=== PATIENT | male | born 1975 | race Caucasian/White ===

== ENCOUNTER → 2020-04-07 08:01 | Outpatient (BNVA) | payer OTHER, SELFPAY | PROVIDERS: PCP Internal Medicine; Visit Provider Anesthesiology | DX: M79.18 Myalgia, other site (principal); Z79.899 Other long term (current) drug therapy | CPT/HCPCS: 20552; 99212; J3300 ==

== ENCOUNTER 2020-05-20 09:59 | Outpatient (REF) | payer OTHER, SELFPAY | END 2020-05-20 10:00 | disposition home or self-care (01) | LOC: HO.LAB 09:59 | PROVIDERS: Visit Provider Internal Medicine | DX: Z20.828 Contact with and (suspected) exposure to other viral communicable diseases (principal) | CPT/HCPCS: 36415; C9803; U0003 ==

== ENCOUNTER → 2020-07-12 16:22 | Outpatient (BNVA) | payer OTHER, SELFPAY | PROVIDERS: PCP Internal Medicine; Visit Provider Anesthesiology | DX: M79.18 Myalgia, other site (principal) | CPT/HCPCS: 20552; 99212; J3300 ==

== ENCOUNTER → 2020-11-01 14:50 | Outpatient (BNVA) | payer OTHER, SELFPAY | PROVIDERS: PCP Internal Medicine; Visit Provider Anesthesiology | DX: M47.816 Spondylosis without myelopathy or radiculopathy, lumbar region (principal); M79.18 Myalgia, other site; Z79.899 Other long term (current) drug therapy | CPT/HCPCS: 20552; 99212; J3300 ==

== ENCOUNTER 2021-04-13 07:55 | Outpatient (REF) | payer OTHER, SELFPAY ==
[2021-04-13 08:12] LABS: MANUAL DIFF FLAG NO
[2021-04-13 08:15] LABS: Basophils Percent Auto 0.8 % (0-2); Eosinophils Absolute Auto 0.1 X10*3/uL (0.0-0.4); Hematocrit 47.7 % (42.0-52.0); Hemoglobin 16.7 g/dl (14.0-18.0); Imm Gran Abs Auto 0.01 X10*3/uL (0.00-0.03); Imm Gran Pct Auto 0.2 % (0.0-0.4); Lymphocytes Absolute Auto 1.4 X10*3/uL (1.2-4.9); Mean Corpuscular Hemoglobin 30.1 pg (27.0-33.0); Mean Corpuscular Volume 86.1 fL (80.0-98.0); Mean Platelet Volume 9.4 fL (9.4-12.4); Monocytes Absolute Auto 0.4 X10*3/uL (0.1-1.2); Monocytes Percent Auto 8.6 % (2-11); Neutrophils Absolute Auto 3.1 x10*3/uL (2.0-8.3); Neutrophils Percent Auto 60.4 % (45-73); Platelet Count 228 X10*3/uL (160-400); Red Blood Count 5.54 X10*6/uL (4.60-5.80); Red Cell Distribution Width 11.8 % (11.0-16.0); White Blood Count 5.1 X10*3/uL (4.8-10.8)
[2021-04-13 08:49] LABS: Alanine Aminotransferase 19 U/L (0-40); Albumin Level 4.3 g/dL (3.5-5.0); Alkaline Phosphatase 93 U/L (39-117); Anion Gap 9 (12-20); Aspartate Amino Transferase 21 U/L (5-37); Bilirubin Total 0.5 mg/dL (0.0-1.0); Blood Urea Nitrogen 16 mg/dL (9-16); Calcium 9.3 mg/dL (8.4-10.2); Carbon Dioxide 29 mmol/L (22-29); Chloride 106 mmol/L (96-108); Cholesterol 191 mg/dL; Estimated Glomerular Filt Rate > 60; Glucose Fasting 104 mg/dL (60-99); HDL Cholesterol 36 mg/dL; Potassium 3.9 mmol/L (3.3-5.1); Sodium 140 mmol/L (135-145); Total Protein 7.6 g/dL (6.5-8.0); Triglycerides 421 mg/dL
== END 2021-04-13 07:56 | disposition home or self-care (01) ==
LOC: HO.LAB 07:55
PROVIDERS: PCP Internal Medicine; Visit Provider Internal Medicine
DX: E66.3 Overweight (principal); E78.5 Hyperlipidemia, unspecified; D64.9 Anemia, unspecified
CPT/HCPCS: 36415; 80053; 80061; 85025

== ENCOUNTER → 2021-07-13 13:53 | Outpatient (BNVA) | payer OTHER, SELFPAY | PROVIDERS: PCP Internal Medicine; Visit Provider Anesthesiology | DX: M79.18 Myalgia, other site (principal) | CPT/HCPCS: 99212 ==

== ENCOUNTER 2021-09-15 07:00 | Outpatient (REF) | payer OTHER, SELFPAY ==
[2021-09-15 07:49] LABS: Alanine Aminotransferase 19 U/L (0-40); Albumin Level 4.2 g/dL (3.5-5.0); Alkaline Phosphatase 101 U/L (39-117); Anion Gap 13 (12-20); Aspartate Amino Transferase 20 U/L (5-37); Bilirubin Total 0.5 mg/dL (0.0-1.0); Blood Urea Nitrogen 13 mg/dL (9-16); Calcium 9.6 mg/dL (8.4-10.2); Carbon Dioxide 25 mmol/L (22-29); Chloride 107 mmol/L (96-108); Cholesterol 198 mg/dL; Estimated Glomerular Filt Rate 60; Glucose Fasting 94 mg/dL (60-99); HDL Cholesterol 38 mg/dL; Potassium 3.9 mmol/L (3.3-5.1); Sodium 141 mmol/L (135-145); Total Protein 7.5 g/dL (6.5-8.0); Triglycerides 467 mg/dL
== END 2021-09-15 07:01 | disposition home or self-care (01) ==
LOC: HO.LAB 07:00
PROVIDERS: PCP Internal Medicine; Visit Provider Internal Medicine
DX: E78.5 Hyperlipidemia, unspecified (principal); E78.1 Pure hyperglyceridemia
CPT/HCPCS: 36415; 80053; 80061

== ENCOUNTER → 2022-01-09 16:18 | Outpatient (BNVA) | payer OTHER, SELFPAY | PROVIDERS: PCP Internal Medicine; Visit Provider Anesthesiology | DX: M79.18 Myalgia, other site (principal) | CPT/HCPCS: 99212 ==

== ENCOUNTER 2022-02-01 07:43 | Outpatient (REF) | payer OTHER, SELFPAY ==
[2022-02-01 08:29] LABS: Alanine Aminotransferase 24 U/L (0-40); Albumin Level 4.3 g/dL (3.5-5.0); Alkaline Phosphatase 79 U/L (39-117); Anion Gap 14 (12-20); Aspartate Amino Transferase 22 U/L (5-37); Bilirubin Total 0.6 mg/dL (0.0-1.0); Blood Urea Nitrogen 18 mg/dL (9-16); Calcium 9.7 mg/dL (8.4-10.2); Carbon Dioxide 27 mmol/L (22-29); Chloride 106 mmol/L (96-108); Cholesterol 178 mg/dL; Estimated Glomerular Filt Rate > 60; Glucose Fasting 97 mg/dL (60-99); HDL Cholesterol 49 mg/dL; LDL Cholesterol Calculated 105 mg/dl; Potassium 3.9 mmol/L (3.3-5.1); Sodium 143 mmol/L (135-145); Total Protein 7.4 g/dL (6.5-8.0); Triglycerides 120 mg/dL
== END 2022-02-01 07:44 | disposition home or self-care (01) ==
LOC: HO.LAB 07:43
PROVIDERS: PCP Internal Medicine; Visit Provider Internal Medicine
DX: E78.1 Pure hyperglyceridemia (principal); E78.5 Hyperlipidemia, unspecified
CPT/HCPCS: 36415; 80053; 80061

== ENCOUNTER 2022-05-10 08:54 | Outpatient (REF) | payer OTHER, SELFPAY ==
[2022-05-10 10:01] LABS: PSA,Total (Free>4and<10) 0.74 ng/mL (0.00-4.00)
== END 2022-05-10 08:55 | disposition home or self-care (01) ==
LOC: HO.LAB 08:54
PROVIDERS: PCP Internal Medicine; Visit Provider Internal Medicine
DX: Z12.5 Encounter for screening for malignant neoplasm of prostate (principal)
CPT/HCPCS: 36415; 84153

== ENCOUNTER → 2022-06-26 15:49 | Outpatient (BNVA) | payer OTHER, SELFPAY | PROVIDERS: PCP Internal Medicine; Visit Provider Anesthesiology | DX: M79.18 Myalgia, other site (principal) | CPT/HCPCS: 99212 ==

== ENCOUNTER 2022-07-12 07:51 | Outpatient (REF) | payer OTHER, SELFPAY | END 2022-07-12 07:52 | disposition home or self-care (01) | LOC: HO.SH 07:51 | PROVIDERS: Visit Provider Internal Medicine | DX: H90.3 Sensorineural hearing loss, bilateral (principal) | CPT/HCPCS: 92557; 92567 ==

== ENCOUNTER 2022-08-19 13:40 | Emergency (ER) | payer OTHER, SELFPAY ==
--- NOTE | ~2022-08-19 | XR_ITS ---
EXAMINATION: XR RIBS, LEFT CLINICAL INFORMATION: Injury pain COMPARISON: No prior exam available. TECHNIQUE: Chest frontal, 5 oblique rib views. FINDINGS: RIBS: Skeletal structures are normal. LUNGS AND CHRISTIAN: Both lungs are clear. PLEURA: Normal. Costophrenic angles are sharp, no pneumothorax. HEART: The heart is normal in size. MEDIASTINUM: The mediastinum is within normal limits.. XR/XR ribs LT min 3V w CXR1V IMPRESSION: 1. No radiographic evidence of rib fracture. 2. No radiographic evidence of acute cardiopulmonary disease.
[2022-08-19 13:55] VITALS: BP 126/78; PULSE 76; RESP 18; TEMP 37.1; O2SAT 97; BMI 24.4
--- NOTE | 2022-08-19 13:59 | ED_ITS ---
HPI - General Adult General Chief complaint: General Medical <ADI Shea Last Filed: 08/19/22 13:59> Stated complaint: rib pain - minor inj <ADI Shea Last Filed: 08/19/22 13:59> Time Seen by Provider: 08/19/22 14:56 <ADI Shea Last Filed: 08/19/22 13:59> Source: patient and RN notes reviewed <ADI Orozco Last Filed: 08/19/22 18:34> Mode of arrival: ambulatory <ADI Orozco Last Filed: 08/19/22 18:34> Limitations: no limitations <ADI Orozco Last Filed: 08/19/22 18:34> History of Present Illness HPI narrative: 47-year-old male with a history of GERD and hypertriglyceridemia, who presents to the emergency department today with complaints left-sided rib pain x7 days. Patient reports that he accidentally hit his left ribs on a car door. Patient reports that he heard a crack and immediately felt pain in his left side. patient reports that since this incident he has had constant left-sided rib pain. He reports that his pain worsens with palpation there was deep inspirations. He reports that he also developed shortness of breath 3 days ago. he denies any fevers or chills. denies any sore throat, ear pain, palpitations, or chest pain. He reports that he was taking dual action advil which provided him with some relief. no other complaints or concerns at this time. <ADI Orozco Last Filed: 08/19/22 18:34> MD complaint: Rib pain <ADI Orozco Last Filed: 08/19/22 18:34> Onset (ago): week(s) <ADI Orozco Last Filed: 08/19/22 18:34> Radiation: non-radiation <ADI Orozco Last Filed: 08/19/22 18:34> Severity: moderate <ADI Orozco Last Filed: 08/19/22 18:34> Quality: stabbing <ADI Orozco Last Filed: 08/19/22 18:34> Pain Consistency: constant <ADI Orozco Last Filed: 08/19/22 18:34> Relieving factors: medication <ADI Orozco - Last Filed: 08/19/22 18:34> Exacerbating factors: movement <ADI Orozco - Last Filed: 08/19/22 18:34> Associated symptoms: denies other symptoms <ADI Orozco - Last Filed: 08/19/22 18:34> Treatments prior to arrival: none <ADI Orozco - Last Filed: 08/19/22 18:34> Related Data Home medications: Previous Rx's Medication Instructions Recorded acetaminophen 500 mg tablet 1,000 mg PO Q6H PRN pain #30 tabs 06/29/21 omeprazole 40 mg capsule,delayed 40 mg PO DAILY 90 days #90 caps 08/30/21 release baclofen 10 mg tablet 10 mg PO TID 30 days #90 tabs 02/08/22 lidocaine HCl 2 % mucosal jelly 1 appl topical TID PRN pain #30 mL 03/27/22 pregabalin 100 mg capsule 100 mg PO BID 30 days #60 caps 05/05/22 fenofibrate nanocrystallized 145 145 mg PO DAILY 90 days #90 tabs 06/19/22 mg tablet tramadol 50 mg tablet 50 mg PO BID PRN pain 30 days #60 08/17/22 tabs ibuprofen 600 mg tablet 600 mg PO Q6H PRN pain #45 tabs 08/19/22 <ADI Shea - Last Filed: 08/19/22 13:59> Allergies/adverse reactions: Allergies Allergy/AdvReac Type Severity Reaction Status Date / Time No Known Allergies Allergy Verified 08/19/22 13:54 [No Known Allergies*] <ADI Shea - Last Filed: 08/19/22 13:59> Review of Systems Review of Systems: Yes all other systems are reviewed and are negative <ADI Orozco - Last Filed: 08/19/22 18:34> [facility] Past Medical History Medical History: Medical History (Updated 08/19/22 @ 16:18 by ADI Orozco) Changes in vision COVID-19 GERD (gastroesophageal reflux disease) Hypertriglyceridemia Myofascial pain syndrome Myofascial pain syndrome of thoracic spine Overweight (BMI 25.0-29.9) Physical exam Rash Spondylosis of lumbar spine <ADI Shea - Last Filed: 08/19/22 13:59> Surgical History: Surgical History (Updated 05/10/22 @ 08:38 by Vanita Garrison MD) History of appendectomy <ADI Shea - Last Filed: 08/19/22 13:59> Family History Family History: Family History Mother Arthritis Hypertension <ADI Shea - Last Filed: 08/19/22 13:59> Social History Social History: Social History Housing: Apartment Alcohol intake: never Patient Tobacco Use Status: Former Tobacco user Tobacco use type: Cigarette e-Cigarette/Vaping Use: Never Used Second Hand Smoke Exposure: No Advance Directives: No Advance Directives Information Provided: No service: No Current occupational status: employed Current occupational exposures/hazards: No Cognitive needs: No Hearing needs: No Vision needs: No <ADI Shea - Last Filed: 08/19/22 13:59> Physical Exam ED Vital Signs: Vital Signs - 24 hr 08/19/22 13:55 Temperature 98.8 F Pulse Rate 76 Respiratory Rate 18 Blood Pressure 126/78 Pulse Oximetry 97 Oxygen Delivery Method Room Air BMI result Body Mass Index 24.4 <ADI Shea - Last Filed: 08/19/22 13:59> Vital Signs - 24 hr 08/19/22 13:55 Temperature 98.8 F Pulse Rate 76 Respiratory Rate 18 Blood Pressure 126/78 Pulse Oximetry 97 Oxygen Delivery Method Room Air BMI result Body Mass Index 24.4 <ADI Orozco - Last Filed: 08/19/22 18:34> Appearance: Alert. Oriented X3. No acute distress. Eyes: Pupils equal, round and reactive to light. EOMI ENT: Pharynx normal. Neck: Normal inspection. Neck supple. CVS: Normal heart rate and rhythm. Pulses normal. Respiratory: No respiratory distress. Breath sounds normal. Lungs clear to auscultation bilaterally. No wheezes, rales, or rhonchi. Abdomen: Soft and nontender. +BS x4 Skin: Skin warm and dry. Normal skin color. Normal skin turgor. No rashes. Extremities: No lower extremity edema. MSK: diffuse tenderness to palpation overlying the left anterior ribs, approximately ribs 5 through 8, with no point tenderness. No ecchymosis, no abrasions, or open wounds. Neuro: Oriented X 3. No motor deficit. No sensory deficit. CN II-XII intact. <ADI Orozco Last Filed: 08/19/22 18:34> Course Course Course Narrative: RME performed by Candy Lema PA-C. Patient is a 47 year old assigned male at presenting to the emergency department with left sided rib pain. Patient states that he struck his left side against the side of his car door and he has had pain ever since. Imaging ordered. Patient placed back in the waiting room pending room availability and results. <ADI Shea Last Filed: 08/19/22 13:59> Medical Decision Making Medical Decision Making MDM Narrative: 47-year-old male presenting today for evaluation of left-sided rib pain for 1 week. vital signs stable. patient has tenderness palpation along the left anterior ribs. Rib x-rays reveal no fracture. Discharged on a prescription for ibuprofen. Educated the importance of taking deep breaths to prevent pneumonia. Educated to return with any new or worsening symptoms. Patient understands and agrees with plan. <ADI Orozco Last Filed: 08/19/22 18:34> Differential Diagnosis Differential Diagnoses: The differential diagnosis associated with the presentation includes <ADI Orozco Last Filed: 08/19/22 18:34> rib fractures, costochondritis, pneumothorax, pnuemonia <ADI Orozco Last Filed: 08/19/22 18:34> Radiology Impression Discussion of test interpretation with radiology: I have reviewed the radiologist's reading. <ADI Orozco Last Filed: 08/19/22 18:34> Radiologist Impression: EXAMINATION: XR RIBS, LEFT CLINICAL INFORMATION:? Injury pain COMPARISON: No prior exam available. TECHNIQUE: Chest frontal, 5 oblique rib views. FINDINGS: RIBS: Skeletal structures are normal. LUNGS AND CHRISTIAN: Both lungs are clear. PLEURA: Normal. Costophrenic angles are sharp, no pneumothorax. HEART: The heart is normal in size. MEDIASTINUM: The mediastinum is within normal limits.. XR/XR ribs LT min 3V w CXR1V IMPRESSION: 1. No radiographic evidence of rib fracture. ? 2. No radiographic evidence of acute cardiopulmonary disease. Dictated By: Carolyn Bucio MD <ADI Orozco - Last Filed: 08/19/22 18:34> Discharge Plan Discharge Clinical Impression: Contusion of rib on left side <ADI Shea - Last Filed: 08/19/22 13:59> Patient Disposition: Home, Self-Care <ADI Shea Last Filed: 08/19/22 13:59> Instructions: Rib Contusion (ED) <ADI Shea - Last Filed: 08/19/22 13:59> Additional Instructions: Your rib x-rays did not show any fractures today. You likely bruised your ribs. Take prescribed ibuprofen as directed. Take with food. Continue to take deep breaths as this will prevent you from developing pneumonia. You may apply warm or cold compresses to the area which will help with your symptoms. Use which ever feels better. If any new or worsening symptoms occur please return for re-evaluation. Las radiograf?as de sonali costillas no mostraron ninguna fractura hoy. Probablemente te lastimaste las costillas. Rodessa el ibuprofeno recetado seg?n las indicaciones. Mary con la comida. Contin?e respirando profundamente ya que esto evitar? que desarrolle neumon?a. Puede aplicar compresas tibias o fr?as en el ?paulo que lo ayudar?n con sonali s?ntomas. Use lo que se sienta mejor. Si se presentan s?ntomas nuevos o que empeoran, regrese para ari reevaluaci?n. <ADI Shea - Last Filed: 08/19/22 13:59> Prescriptions: New ibuprofen 600 mg tablet 600 mg PO Q6H PRN (Reason: pain) Qty: 45 0RF No Action omeprazole 40 mg capsule,delayed release(DR/EC) 40 mg PO DAILY 90 Days Qty: 90 1RF baclofen 10 mg tablet 10 mg PO TID 30 Days Qty: 90 8RF pregabalin 100 mg capsule 100 mg PO BID 30 Days Qty: 60 5RF fenofibrate nanocrystallized 145 mg tablet 145 mg PO DAILY 90 Days Qty: 90 1RF tramadol 50 mg tablet 50 mg PO BID PRN (Reason: pain) 30 Days Qty: 60 0RF acetaminophen 500 mg tablet 1,000 mg PO Q6H PRN (Reason: pain) Qty: 30 0RF lidocaine HCl 2 % jelly 1 appl topical TID PRN (Reason: pain) Qty: 30 0RF <ADI Shea - Last Filed: 08/19/22 13:59> Interventions: ED Discharge Assessment Last Done: 08/19/22 16:43 <ADI Shea - Last Filed: 08/19/22 13:59> Discharge Date/Time: 08/19/22 16:43 <ADI Shea - Last Filed: 08/19/22 13:59> Print Language: Upper Sorbian <ADI Shea - Last Filed: 08/19/22 13:59>
== END 2022-08-19 16:43 | disposition home or self-care (01) ==
PROVIDERS: Emergency Provider Emergency Medicine; PCP Internal Medicine
DX: S20.212A Contusion of left front wall of thorax, initial encounter (principal); W22.09XA Striking against other stationary object, initial encounter; Y93.89 Activity, other specified; Y92.810 Car as the place of occurrence of the external cause; Y99.9 Unspecified external cause status
CPT/HCPCS: 71101; 99282; 99283

== ENCOUNTER 2022-11-15 10:34 | Outpatient (REF) | payer OTHER, SELFPAY | END 2022-11-15 10:35 | disposition home or self-care (01) | LOC: HO.LAB 10:34 | PROVIDERS: PCP Internal Medicine; Visit Provider Internal Medicine | DX: E78.5 Hyperlipidemia, unspecified (principal); E78.1 Pure hyperglyceridemia | CPT/HCPCS: 36415; 80053; 80061 ==

== ENCOUNTER 2023-05-16 07:26 | Outpatient (AMB) | payer OTHER, SELFPAY ==
[2023-05-16 07:42] VITALS: BP 114/70; BMI 25.4
--- NOTE | 2023-05-16 07:42 | MHC.PC.OV ---
Vital Signs 05/16/23 07:42 Height 6 ft Weight 187 lb BMI 25.4 BP 114/70 Blood Pressure Location Lt brachial Position Sitting Intake Visit Reasons: Annual Exam Intake Note: Patient here for an annual physical exam, c/o right arm pain x4 months Crime Scene Analyst Required: No Accompanied by: Self / Same As Patient Allergies No Known Allergies [No Known Allergies*] Allergy (Verified 05/16/23 07:50) Medication List - Last Reconciled 05/16/23 by Vanita Garrison MD acetaminophen 1,000 mg (2 x 500 mg) PO Q6H PRN baclofen 10 mg PO TID 30 days fenofibrate nanocrystallized 145 mg PO DAILY 90 days ibuprofen 600 mg PO Q6H PRN omeprazole 40 mg PO DAILY 90 days pregabalin 100 mg PO BID 30 days tramadol 50 mg PO BID PRN 30 days Tobacco use date assessed: 11/08/22 Dental Screening Dental Screen Date: 05/16/23 Did you have a dental visit in the last 12 months?: Yes Did you have a dental problem in the last 6 months where you did not have access to dental care?: No Was dental information given to patient?: Patient has dentist HPI HPI Comments History of Present Illness Details This is a 48-year-old male that comes for his physical exam. Has no family history of colon cancer and has never had a colonoscopy. Will prefer a Cologuard. No chest pain or shortness of breath. Complains of right elbow pain that started about 4 months ago with no previous trauma. No weakness or numbness associated with it. Also has left repeat pain that started yesterday after putting pressure on it while working on his car. [facility] Medical History Physical exam Changes in vision Hypertriglyceridemia Overweight (BMI 25.0-29.9) GERD (gastroesophageal reflux disease) Spondylosis of lumbar spine Rash COVID-19 Myofascial pain syndrome of thoracic spine Myofascial pain syndrome Surgical History History of appendectomy Family History (Updated 05/16/23 @ 07:54 by Vanita Garrison MD) Mother Arthritis Hypertension Father No problems noted. Social History Housing: Apartment Alcohol intake: never Patient Tobacco Use Status: Former Tobacco user Tobacco use type: Cigarette e-Cigarette/Vaping Use: Never Used Second Hand Smoke Exposure: No service: No Current occupational status: employed Current occupational exposures/hazards: No Cognitive needs: No Hearing needs: No Vision needs: No Questionnaire Thrive Questionnaire Date Thrive assessed: 11/08/22 JESSICA-7 AMB Questionnaire JESSICA-7 Date JESSICA - 7 assessed: 11/08/22 Source: Developed by Drs. Dejuan Amador, Leta Calderon, Dieter Sarah and colleagues, with an educational abhay from [employer]. Review of Systems Const All systems reviewed & are unremarkable except as noted in HPI and below Eyes Reports no additional complaints, Denies change in vision and Denies other visual disturbances Card Denies chest pain at rest, Denies chest pain with activity, Denies edema, Denies irregular heart rhythm, Denies claudication, Denies dyspnea, Denies dyspnea on exertion, Denies orthopnea, Denies paroxysmal nocturnal dyspnea and Denies slow heart rate Resp Denies cough, Denies dyspnea and Denies dyspnea on exertion GI Denies abdominal pain, Denies change in bowel habits, Denies excessive flatus, Denies nausea and Denies vomiting Denies urinary hesitancy, Denies urinary incontinence and Denies urinary urgency Musc Denies abnormal gait, Denies atrophy, Denies deformity, Reports arthralgias and Denies limited range of motion Skin/Breast Denies bleeding lesions, Denies changing lesions and Denies rash Neuro Denies abnormal gait and Denies lack of coordination Physical exam (Primary Care) Vital Signs: Last Vital Signs BP 114/70 05/16/23 07:42 BMI result Body Mass Index 25.4 Tobacco/Smoking Status: Tobacco use Status Tobacco use date assessed 11/08/22 05/16/23 07:47 Patient Tobacco Use Status Former Tobacco user 05/16/23 07:47 Tobacco use type Cigarette 05/16/23 07:47 e-Cigarette/Vaping Use Never Used 05/16/23 07:47 Thrive Assessment: Date of Thrive Assessment Date Thrive assessed 11/08/22 05/16/23 07:47 Const Orientation/consciousness: patient oriented x3 HENMT Head: Yes normal to inspection, Yes normocephalic and Yes atraumatic Ears: external ears normal Eyes General: appearance normal, both eyes and all related structures Eyelids: Yes eyelids normal Conjunctivae: conjunctivae normal Neck Neck: Yes normal visual inspection and Yes supple Resp Effort & Inspection: normal respiratory effort Auscultation: clear to auscultation bilaterally Cardio Jugular venous distension: no JVD Rate: regular rate Rhythm: regular rhythm Heart sounds: S1 normal heart sound present and S2 normal heart sound present GI Inspection: Yes normal to inspection Palpation (GI): Soft to palpation and nontender Auscultation: normal bowel sounds Skin General skin exam: no rashes or lesions noted Neuro General: patient oriented x3 and no focal motor deficits Extrem General: Yes full ROM Psych Appearance: grossly normal Assessment and Plan Assessment & Plan (1) Physical exam: Code(s): Z00.00 - Encounter for general adult medical examination without abnormal findings Plan: Repeat in a year. Orders: Orders XR elbow RT 2V Today M25.521 - Pain in right elbow Lipid Panel Today E78.5 - Hyperlipidemia, unspecified Comprehensive [facility]. Panel Fast Today Z00.00 - Encounter for general adult medical examination without abnormal findings OT Evaluation and Treatment Today M25.521 - Pain in right elbow XR ribs LT 2V Today R07.81 - Pleurodynia Referrals Cologuard Test Z12.11 - Encounter for screening for malignant neoplasm of colon, Z12.12 - Encounter for screening for malignant neoplasm of rectum Coding Level of Care Code Est Pt Prev Care 40-64y(34452) Diagnoses Physical exam Z00.00 Time Spent (min) 31
== END 2023-05-16 08:02 | disposition home or self-care (01) ==
PROVIDERS: Visit Provider Internal Medicine
DX: Z00.00 Encounter for general adult medical examination without abnormal findings (principal); Z87.891 Personal history of nicotine dependence
CPT/HCPCS: 99396

== ENCOUNTER 2023-05-16 08:16 | Outpatient (REF) | payer OTHER, SELFPAY | END 2023-05-16 08:17 | disposition home or self-care (01) | LOC: HO.XRAY 08:16 | PROVIDERS: PCP Internal Medicine; Visit Provider Internal Medicine | DX: R07.81 Pleurodynia (principal); M25.521 Pain in right elbow | CPT/HCPCS: 71101; 73070 ==

== ENCOUNTER 2023-05-23 09:51 | Outpatient (REF) | payer OTHER, SELFPAY ==
[2023-05-23 11:26] LABS: Alanine Aminotransferase 19 U/L (0-40); Albumin Level 4.5 g/dL (3.5-5.0); Alkaline Phosphatase 80 U/L (39-117); Anion Gap 14 (12-20); Aspartate Amino Transferase 21 U/L (5-37); Bilirubin Total 0.6 mg/dL (0.0-1.0); Blood Urea Nitrogen 21 mg/dL (9-16); Calcium 9.7 mg/dL (8.4-10.2); Carbon Dioxide 25 mmol/L (22-29); Chloride 107 mmol/L (96-108); Cholesterol 173 mg/dL (<200); Estimated Glomerular Filt Rate > 60; Glucose Fasting 93 mg/dL (60-99); HDL Cholesterol 49 mg/dL (>40); LDL Cholesterol Calculated 95 mg/dL (<100); Potassium 4.3 mmol/L (3.3-5.1); Sodium 142 mmol/L (135-145); Total Protein 7.9 g/dL (6.5-8.0); Triglycerides 148 mg/dL (<150)
== END 2023-05-23 09:52 | disposition home or self-care (01) ==
LOC: HO.LAB 09:51
PROVIDERS: PCP Internal Medicine; Visit Provider Internal Medicine
DX: Z00.00 Encounter for general adult medical examination without abnormal findings (principal); E78.5 Hyperlipidemia, unspecified
CPT/HCPCS: 36415; 80053; 80061

== ENCOUNTER 2023-06-07 15:03 | Outpatient (AMB) | payer OTHER, SELFPAY ==
--- NOTE | 2023-06-07 15:35 | A.OFFVIS_ITS ---
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 Patient reports that he has had right elbow pain ongoing for about6 months now. He believes that this pain was onset while he was carrying a heavy bucket of paint while in [place]. Pain is located on the lateral aspect of the elbow. 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 The patient was seen by his PCP on 05/16/2023 with a complaint of 4 months of right elbow pain with no trauma. While in the office today he reports having pain for 6 months. He believe the pain and discomfort began after he was carrying heavy buckets of paint while in [place]. He states the pain is on the lateral aspect of the right elbow. He states the brace has given him some relief. He denies numbness or tingling. He reports an injury to the right upper extremity when he was younger. [facility] Medical History Physical exam Changes in vision Hypertriglyceridemia Overweight (BMI 25.0-29.9) GERD (gastroesophageal reflux disease) Spondylosis of lumbar spine Rash COVID-19 Myofascial pain syndrome of thoracic spine Myofascial pain syndrome Surgical History History of appendectomy Family History (Updated 05/16/23 @ 07:54 by Vanita Garrison MD) Mother Arthritis Hypertension Father No problems noted. 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 No ecchymosis, erythema, or edema. No tenderness to palpation over the olecranon. No tenderness to the medial epicondyle. Slight tenderness to palpation lateral epicondyle. NVI. Assessment & Plan Assessment & Plan (1) Right tennis elbow: Code(s): M77.11 - Lateral epicondylitis, right elbow Plan Mr. Sin Russell is a 48-year-old male who presents in the office today, as a new patient, for an evaluation of right elbow pain. The patient was seen by his PCP on 05/16/2023 with a complaint of 4 months of right elbow pain with no trauma. While in the office today he reports having pain for 6 months. He believe the pain and discomfort began after he was carrying heavy buckets of paint while in [place]. He states the pain is on the lateral aspect of the right elbow. He states the brace has given him some relief. He denies numbness or tingling. He reports an injury to the right upper extremity when he was younger. The patient will be referred to occupational therapy to work on strengthening. I would also like for them to work on this area for inflammation, possibly with ultrasound and/or deep tissue massaging to see if that can decrease the pain and inflammation. After 6 weeks of occupational therapy should the patient not have relief I have asked for him to call the office and we can move forward with the cortisone injection. In the event the cost of occupational therapy is too high I did supply him with home exercises for the right elbow today and we can move forward with the cortisone injection if needed. I have also sent in a prescription for Naproxen 500 mg PO TID for 30 days to the pharmacy Follow up will be PRN, or sooner if needed. X-rays of the right elbow, obtained on 05/16/2023, revealed: 1.No displaced fracture. 2. Small olecranon spur. 3. Tiny punctate radiodensity in the soft tissues along the radial aspect of the elbow of indeterminate etiology. 4. Recommend follow-up imaging in 10-14 days if fracture is suspected. Orders: Orders OT Evaluation and Treatment Today M77.11 - Lateral epicondylitis, right elbow Medications: New naproxen 500 mg PO Q8H 90 tabs 0RF 30 days Patient Instructions: Scribed for Mitali Gomez PA-C by [place] medical record librarians teacher, on 06/04/2023 at 3:05 pm, EST. Coding Level of Care Code New Pt Level 4 (29038) Diagnoses Right tennis elbow M77.11
== END 2023-06-07 15:56 | disposition home or self-care (01) ==
PROVIDERS: PCP Internal Medicine; Visit Provider Physician Assistant
DX: M77.11 Lateral epicondylitis, right elbow (principal)
CPT/HCPCS: 99204

== ENCOUNTER → 2023-06-07 15:03 | Outpatient (BNVA) | payer OTHER, SELFPAY | PROVIDERS: PCP Internal Medicine; Visit Provider Physician Assistant | DX: M77.11 Lateral epicondylitis, right elbow (principal) | CPT/HCPCS: 99202 ==

== ENCOUNTER 2023-07-30 12:43 | Outpatient (AMB) | payer OTHER, SELFPAY ==
[2023-07-30 13:44] VITALS: BP 124/60; PULSE 83; O2SAT 96; BMI 25.8
--- NOTE | 2023-07-30 13:44 | MHC.OFFWIV ---
Intake Vital Signs 07/30/23 13:44 Height 6 ft Weight 190 lb BMI 25.8 BP 124/60 Blood Pressure Location Rt brachial Position Sitting Pulse 83 Pulse Source Pulse Oximeter Pulse Oximetry (%) 96 Oxygen Delivery Method Room Air Intake Visit Reasons: EP Acid Reflux, Diff clearing throat, Foul smell Intake Note: Pt is here c/o acid reflex. Pt states his cough has a foul odor and he doesn't know where it came from. Pt states he has been on omeprazole for two weeks and has not felt any better. Patient Tobacco Use Status: Former Tobacco user Allergies No Known Allergies [No Known Allergies*] Allergy (Verified 07/30/23 14:05) HPI HPI Comments History of Present Illness Details This is a 48-year-old male with past medical history of gastroesophageal reflux disease and hypertriglyceridemia presenting for evaluation of his GERD that persists despite taking omeprazole 40mg BID for the past 2 weeks. The patient reports that when he burps for the past 7 days he has a very foul odor to his breath. Patient states his symptoms of gastroesophageal reflux disease have been persistent for the past 6 weeks and he was previously taking omeprazole 20 mg but only as needed. Patient reports having a ?bacteria? in his stomach previously which was treated with antibiotic therapy. Patient denies having any dark or bloody stools, constipation, fevers, chills or chest pain. [facility] Medical History Physical exam Changes in vision Hypertriglyceridemia Overweight (BMI 25.0-29.9) GERD (gastroesophageal reflux disease) Spondylosis of lumbar spine Rash COVID-19 Myofascial pain syndrome of thoracic spine Myofascial pain syndrome Surgical History History of appendectomy Family History (Updated 05/16/23 @ 07:54 by Vanita Garrison MD) Mother Arthritis Hypertension Father No problems noted. 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 Current occupational exposures/hazards: No Cognitive needs: No Hearing needs: No Vision needs: No Review of Systems Const All systems reviewed & are unremarkable except as noted in HPI and below ENT Denies dysphagia Card Reports as per HPI Resp Reports as per HPI GI Reports abdominal pain, Reports belching, Denies melena, Denies hematochezia, Denies coffee ground emesis, Denies constipation, Denies dysphagia, Denies excessive flatus, Reports dyspepsia and Denies diarrhea Reports no additional complaints Neuro Reports no additional complaints Physical Exam Vital Signs: Last Vital Signs Pulse 83 07/30/23 13:44 BP 124/60 07/30/23 13:44 Pulse Ox 96 07/30/23 13:44 Oxygen Delivery Method Room Air 07/30/23 13:44 BMI result Body Mass Index 25.8 Const General: cooperative, healthy appearing, comfortable and no acute distress Nutritional Appearance: average body habitus Orientation/consciousness: oriented to person, oriented to place and oriented to time Limitations: no limitations Resp Effort & Inspection: normal respiratory effort, no audible wheezes, no cough and no respiratory distress Auscultation: clear to auscultation bilaterally Cardio Rate: regular rate Rhythm: regular rhythm GI Palpation (GI): Soft to palpation and Tenderness to palpation present (GI) in the epigastrum (with guarding; no rebound tenderness) and in the LUQ; not in the RUQ Auscultation: normal bowel sounds Rectal Exam - Male: Yes deferred Neuro General: oriented to person, oriented to place and oriented to time Psych Appearance: grossly normal Mental Status: mental status grossly normal Insight: Good insight present (Psych) Judgement: Good judgement present (Psych) Assessment & Plan Assessment & Plan (1) GERD (gastroesophageal reflux disease): Comment: Patient states he has experienced no improvement of his symptoms with omeprazole. Patient will be switched to an H2 dari BID and stool testing for H pylori will be pursued. Code(s): K21.9 - Gastro-esophageal reflux disease without esophagitis Qualifiers: Esophagitis presence: without esophagitis Qualified Code(s): K21.9 - Gastro-esophageal reflux disease without esophagitis Plan: Famotidine BID; stool testing for H.pylori will be submitted and the patient will follow-up with his PCP for the results. Orders: Orders H pylori Ag Stool 07/30/23 K21.9 - Gastro-esophageal reflux disease without esophagitis Medications: New famotidine 20 mg PO BID 28 tabs 0RF Coding Level of Care Code Est Pt Level 3 (50009) Diagnoses Gastroesophageal reflux disease without esophagitis K21.9 Esophagitis presence: without esophagitis Time Spent (min) 20
== END 2023-07-30 15:10 | disposition home or self-care (01) ==
PROVIDERS: PCP Internal Medicine; Visit Provider Physician Assistant
DX: K21.9 Gastro-esophageal reflux disease without esophagitis (principal)
CPT/HCPCS: 99213

== ENCOUNTER 2023-08-01 11:42 | Outpatient (REF) | payer OTHER, SELFPAY | END 2023-08-01 11:43 | disposition home or self-care (01) | LOC: HO.LNP 11:42 | PROVIDERS: Visit Provider Physician Assistant | DX: K21.9 Gastro-esophageal reflux disease without esophagitis (principal) | CPT/HCPCS: 87338 ==

== ENCOUNTER 2023-08-15 13:47 | Outpatient (AMB) | payer OTHER, SELFPAY ==
--- NOTE | 2023-08-15 13:47 | MHC.OFFVIS ---
Intake Vital Signs 08/15/23 14:03 Height 6 ft Weight 189 lb 6 oz BMI 25.7 BP 146/76 H Blood Pressure Location Lt brachial Position Sitting Respiration 16 Pulse 76 Pulse Source Pulse Oximeter Pulse Oximetry (%) 96 Oxygen Delivery Method Room Air Intake Visit Reasons: Medication follow up Intake Note: Patient comes in for medication follow up. Reports pain 11/20. Allergies No Known Allergies [No Known Allergies*] Allergy (Verified 08/15/23 14:03) HPI HPI Comments History of Present Illness Details Fred is a very pleasant Macedonian speaking male who is here after 1 year of absence. I started him on Lyrica and he is here to refill his prescription. I you requested him to explain if he has any side effects of the Lyrica. He denies peripheral edema. He denies depression. He admitted that it beginning of the therapy start he was feeling drowsy and sleepy but now those symptoms are gone. He enjoys good pain relief from this medication and he requests me to refill this medication for him. I will refill this medication with 6 refills. I will see him as needed. In the past to perform trigger point injections for him, in the past he reports that he has penis becomes red and irritated when I do trigger point injections.?I never heard about complication like this, however recommended him to go for urological consult and explained to urologist what happened. Unfortunately this patient did not go to urologist to receive the consultation about this complication. Therefore cannot consider administering to him today any injections with steroids. We agreed that he will go to his urologist and clear out for us past to perform injections for him. He reports good results of Lyrica he denies side effects. On the MRI which we obtained on his request there is no pathology from L1-L5. L5-S1 diffusely bulging disc no canal stenosis partial effacement of perineural fat with mass effect on both L5 foraminal nerve roots. The importance of this finding on MRI approach is probably minimal because his pain is nonradicular in nature and in any case does not present itself in L5 bilateral distribution. [facility] Medical History Physical exam Changes in vision Hypertriglyceridemia Overweight (BMI 25.0-29.9) GERD (gastroesophageal reflux disease) Spondylosis of lumbar spine Rash COVID-19 Myofascial pain syndrome of thoracic spine Myofascial pain syndrome Surgical History History of appendectomy Family History (Updated 05/16/23 @ 07:54 by Vanita Garrison MD) Mother Arthritis Hypertension Father No problems noted. 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 Current occupational exposures/hazards: No Cognitive needs: No Hearing needs: No Vision needs: No Review of Systems Const All systems reviewed & are unremarkable except as noted in HPI and below ENT Reports Normal hearing present Neuro Reports Normal hearing present, Denies confusion and Denies Sensory deficit (Neuro) Psych Denies confusion Physical Exam Vital Signs: Last Vital Signs Pulse 76 08/15/23 14:03 Resp 16 08/15/23 14:03 BP 146/76 H 08/15/23 14:03 Pulse Ox 96 08/15/23 14:03 Oxygen Delivery Method Room Air 08/15/23 14:03 BMI result Body Mass Index 25.7 Const General: No confusion Orientation/consciousness: No confusion Eyes Pupils: Equal, round and reactive pupils present EOM: EOMs intact bilaterally Chest Chest palpation & inspection: normal inspection of the chest Resp Effort & Inspection: normal respiratory effort, able to speak in complete sentences, normal respiratory pattern, no audible wheezes and no cough Cardio Jugular venous distension: no JVD Back/Spine/Pelvis Other: tenderness on palpation in paraspinal spinal region in thoracic spine. there are significant muscular bands probably in the projection of bilateral paraspinal or rather bilateral latissimus dorsi muscle. Loading test is negative. Range of motion in lumbar spine is preserved. Rahul test is negative bilaterally. Neuro General: No confusion Cranial nerves: Yes Equal, round and reactive pupils present and Yes Normal hearing present Sensory Exam: No Sensory deficit (Neuro) Psych Speech and movement: Normal speech and movement present Affect: normal affect Attitude: cooperative Assessment & Plan Assessment & Plan (1) Myofascial pain syndrome: Code(s): M79.18 - Myalgia, other site (2) Myofascial pain syndrome of thoracic spine: Code(s): M79.18 - Myalgia, other site Plan He denies side effects of Lyrica. He reports Lyrica allow him to be more active perform better activities of daily living do better with social interactions. I will refill his prescription today. In the past he was requesting to perform trigger point injections . I agreed to perform trigger point injections, however he was complaining on redness in the penis with previous injections. He was sent to urologist. Unfortunately he did not go for urological consult. He has his own urologist and need to discuss this complication with urologist. After that he may be attempted to perform trigger point injections once we know that there is nothing dangerous with the reaction to the steroids from his penile structures. Medications: Refilled pregabalin 100 mg PO BID 60 caps 5RF 30 days Coding Level of Care Code Est Pt Level 3 (91552) Diagnoses Myofascial pain syndrome M79.18 Myofascial pain syndrome of thoracic spine M79.18
[2023-08-15 14:03] VITALS: BP 146/76; PULSE 76; RESP 16; O2SAT 96; BMI 25.7
== END 2023-08-15 14:29 | disposition home or self-care (01) ==
PROVIDERS: PCP Internal Medicine; Visit Provider Anesthesiology
DX: M79.18 Myalgia, other site (principal)
CPT/HCPCS: 99213

== ENCOUNTER → 2023-08-15 13:47 | Outpatient (BNVA) | payer OTHER, SELFPAY | PROVIDERS: PCP Internal Medicine; Visit Provider Anesthesiology | DX: M79.18 Myalgia, other site (principal) | CPT/HCPCS: 99212 ==

== ENCOUNTER 2023-09-27 12:57 | Outpatient (AMB) | payer OTHER, SELFPAY ==
--- NOTE | 2023-09-27 13:00 | A.OFFVIS_ITS ---
Vital Signs 09/27/23 13:01 Height 6 ft Weight 189 lb 9.561 oz BMI 25.7 BP 135/57 L Blood Pressure Location Lt brachial Position Sitting Pulse 68 Intake Visit Reasons: Colonoscopy Screening Intake Note: Fred presents in the office as a new patient colonoscopy screening. CC: He states that he is having acid - acid reflux. No irregular bowel movements. [employer] Required: Yes [employer] Name: [id number] Ninet Allergies No Known Allergies [No Known Allergies*] Allergy (Verified 09/27/23 13:04) Medication List - Last Reconciled 09/27/23 by Aleah Rene PA-C acetaminophen 1,000 mg (2 x 500 mg) PO Q6H PRN escitalopram oxalate 10 mg PO DAILY famotidine 40 mg PO BEDTIME 90 days fenofibrate nanocrystallized 145 mg PO DAILY 90 days pregabalin 100 mg PO BID 30 days tramadol 50 mg PO BID PRN 30 days HPI Comments Details: 48-year-old male referred for screening colonoscopy presents with acid reflux- ongoing for years tried several ppi- currently pepcid 40 mg-hoarseness- break through He has frequent throat clearing - His bowels are normal Appetite is good No N/V/D abdominal pain, fever or chills PFSH Medical History Physical exam Changes in vision Hypertriglyceridemia Overweight (BMI 25.0-29.9) GERD (gastroesophageal reflux disease) Spondylosis of lumbar spine Rash COVID-19 Myofascial pain syndrome of thoracic spine Myofascial pain syndrome Surgical History History of appendectomy Family History (Updated 09/27/23 @ 13:06 by HEAVEN Heck) Mother Arthritis Hypertension Father No problems noted. 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 Current occupational exposures/hazards: No Cognitive needs: No Hearing needs: No Vision needs: No Review of Systems Const All systems reviewed & are unremarkable except as noted in HPI and below Card Denies chest pain and Denies dyspnea Resp Denies dyspnea GI Denies abdominal pain, Reports heartburn, Denies nausea and Denies vomiting Physical Exam Vital Signs: Last Vital Signs Pulse 68 09/27/23 13:01 BP 135/57 L 09/27/23 13:01 BMI result Body Mass Index 25.7 Const General: cooperative, healthy appearing, comfortable and no acute distress Orientation/consciousness: patient oriented x3 Limitations: language barrier Skin General skin exam: no rashes or lesions noted Neuro General: patient oriented x3 Extrem General: Yes full ROM Psych Appearance: grossly normal and well kempt Mental Status: mental status grossly normal Speech and movement: Normal speech and movement present and Clear speech present Affect: normal affect and Labile affect present Attitude: cooperative Thought process: Normal thought process present Thought content: Normal thought content present Insight: Good insight present (Psych) Judgement: Good judgement present (Psych) Results Reviewed Results Reviewed: HP- negative Assessment & Plan Assessment & Plan (1) GERD (gastroesophageal reflux disease): Comment: no improvement of his symptoms with omeprazole. Patient will be switched to an H2 dari BID and stool testing for H pylori -negative Code(s): K21.9 - Gastro-esophageal reflux disease without esophagitis Category: Medical Qualifiers: Esophagitis presence: without esophagitis Qualified Code(s): K21.9 - Gastro-esophageal reflux disease without esophagitis Plan: EGD- (2) Encounter for screening colonoscopy: Comment: many repetitions----slow to detail disc procedure, rare risks, prep Code(s): Z12.11 - Encounter for screening for malignant neoplasm of colon Category: Medical Plan: colonoscopy-index Plan EGD/ colon-needs interp MG prep Orders: Orders EGD/Roach Combo - GI Use Only Today K21.9 - Gastro-esophageal reflux disease without esophagitis, Z12.11 - Encounter for screening for malignant neoplasm of colon Medications: New bisacodyl (Dulcolax (bisacodyl)) Day before procedure @ 12 noon Take 4 tablets by mouth followed by large glass of water 20 mg (4 x 5 mg) PO ONCE PRN 4 tabs 0RF colonoscopy prep 1 day Z12.11 - Encounter for screening for malignant neoplasm of colon polyethylene glycol 3350 (Miralax) Take as directed by mouth the day before your procedure. 238 grams PO ONCE 238 grams 0RF laxative effect 1 day pantoprazole 40 mg PO DAILY 30 tabs 5RF 30 days Patient Instructions: EGD/colon MG prep Reflux precautions switch to pantoprazole 40 mg May take famotodine at HS if has breakthrough Call with concerns Coding Level of Care Code New Pt Level 4 (07855) Diagnoses Gastroesophageal reflux disease without esophagitis K21.9 Esophagitis presence: without esophagitis Encounter for screening colonoscopy Z12.11 Time Spent (min) 35 Comment [id number]
[2023-09-27 13:01] VITALS: BP 135/57; PULSE 68; BMI 25.7
== END 2023-09-27 14:13 | disposition home or self-care (01) ==
PROVIDERS: PCP Internal Medicine; Visit Provider Physician Assistant
DX: K21.9 Gastro-esophageal reflux disease without esophagitis (principal); Z12.11 Encounter for screening for malignant neoplasm of colon
CPT/HCPCS: 99204

== ENCOUNTER → 2023-09-27 12:57 | Outpatient (BNVA) | payer OTHER, SELFPAY | PROVIDERS: PCP Internal Medicine; Visit Provider Physician Assistant | DX: Z12.11 Encounter for screening for malignant neoplasm of colon (principal); K21.9 Gastro-esophageal reflux disease without esophagitis | CPT/HCPCS: 99202 ==

== ENCOUNTER 2023-11-21 09:58 | Outpatient (AMB) | payer OTHER, SELFPAY ==
--- NOTE | 2023-11-21 10:07 | MHC.PC.OV ---
Vital Signs 11/21/23 10:08 Height 6 ft Weight 187 lb 2 oz BMI 25.4 BP 100/74 Blood Pressure Location Lt brachial Position Sitting Pulse 94 Pulse Source Pulse Oximeter Pulse Oximetry (%) 96 Oxygen Delivery Method Room Air Intake Visit Reasons: chronic pain,gerd Floor Specialist Required: No Accompanied by: Self / Same As Patient Allergies No Known Allergies [No Known Allergies*] Allergy (Verified 11/21/23 10:26) Medication List - Last Reconciled 11/21/23 by Vanita Garrison MD acetaminophen 1,000 mg (2 x 500 mg) PO Q6H PRN bisacodyl (Dulcolax (bisacodyl)) 20 mg (4 x 5 mg) PO ONCE PRN 1 day escitalopram oxalate 10 mg PO DAILY famotidine 40 mg PO BEDTIME 90 days fenofibrate nanocrystallized 145 mg PO DAILY 90 days pantoprazole 40 mg PO DAILY 30 days polyethylene glycol 3350 (Miralax) 238 grams PO ONCE 1 day pregabalin 100 mg PO BID 30 days tramadol 50 mg PO BID PRN 30 days Tobacco use date assessed: 11/21/23 Dental Screening Dental Screen Date: 05/16/23 HPI HPI Comments History of Present Illness Details This is a 48-year-old male with GERD and lumbar spondylosis that comes today for follow-up on his conditions. GERD has been improving with pantoprazole daily. Lumbar spondylosis are well control with tramadol as needed and he is aware that can cause addiction and sedation. Denies any chest pain or shortness on breath. Doing well. [facility] Medical History Physical exam Changes in vision Hypertriglyceridemia Overweight (BMI 25.0-29.9) GERD (gastroesophageal reflux disease) Spondylosis of lumbar spine Rash COVID-19 Myofascial pain syndrome of thoracic spine Myofascial pain syndrome Surgical History History of appendectomy Family History Mother Arthritis Hypertension Father No problems noted. 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 1. Little interest or pleasure in doing things: not at all 2. Feeling down, depressed, or hopeless: not at all 3. Trouble falling or staying asleep, or sleeping too much: not at all 4. Feeling tired or having little energy: not at all 5. Poor appetite or overeating: not at all 6. Feeling bad about yourself - or that you are a failure or have let yourself or your family down: not at all 7. Trouble concentrating on things, such as reading the newspaper or watching television: not at all 8. Moving or speaking so slowly that other people could have noticed. Or the opposite - being so fidgety or restless that you have been moving around a lot more than usual: not at all 9. Thoughts that you would be better off or of hurting yourself in some way: not at all Total score: 0 Depression Screening Interpretation: Negative Depression Screening Done: Yes 77097 - PHQ-9 Billing: Yes Source: Developed by Drs. Dejuan Amador, Leta Calderon, Dieter Sarah and colleagues, with an educational abhay from [employer]. Thrive Questionnaire Date Thrive assessed: 11/21/23 I am a: Patient What is your living situation today?: I have a steady place to live Within the past 12 months, did the food you bought not last and you didn't have the money to get more?: Never true Within the past 12 months, did you worry whether your food would run out before you got money to buy more?: Never true Do you have trouble paying for medicines?: No Do you have trouble getting transportation to medical appointments?: No Do you have trouble paying your heating and electricity bill?: No Do you have trouble taking care of your child, family member or friend?: No Do you have trouble with day-to-day activities such as bathing, preparing meals, shopping, managing finances, etc.?: No Are you currently unemployed and looking for a job?: No Are you interested in more education?: No Please select the resources that you would like help with: None Currently or been in a relationship where the following occur: No concerns reported THRIVE Score: 0 AUDIT C Alcohol Use Questionnaire (AUDIT-C) 1. How often do you have a drink containing alcohol?: Never 3. How often do you have six or more drinks on one occasion?: Never Total Score: 0 JESSICA-7 AMB Questionnaire JESSICA-7 Date JESSICA - 7 assessed: 11/21/23 Feeling nervous, anxious, or on edge: 0 = Not at all Not being able to stop or control worryin = Not at all Worrying too much about different things: 0 = Not at all Trouble relaxin = Not at all Being so restless that it is hard to sit still: 0 = Not at all Becoming easily annoyed or irritable: 0 = Not at all Feeling afraid as if something awful might happen: 0 = Not at all Total JESSICA-7 score (0-4 normal; 5-9 mild; 10-14 moderate; 15-21 severe): 0 Source: Developed by Drs. Dejuan Amador, Leta Calderon, Dieter Sarah and colleagues, with an educational abhay from [employer]. JESSICA-7 Assessment Billing JESSICA-7 Assessment Tool: JESSICA-7 Assessment 07726 Review of Systems Const All systems reviewed & are unremarkable except as noted in HPI and below Card Denies chest pain at rest, Denies chest pain with activity, Denies edema, Denies irregular heart rhythm, Denies claudication, Denies dyspnea, Denies dyspnea on exertion, Denies orthopnea, Denies paroxysmal nocturnal dyspnea and Denies slow heart rate Resp Denies cough, Denies dyspnea and Denies dyspnea on exertion Physical exam (Primary Care) Vital Signs: Last Vital Signs Pulse 94 11/21/23 10:08 BP 100/74 11/21/23 10:08 Pulse Ox 96 11/21/23 10:08 Oxygen Delivery Method Room Air 11/21/23 10:08 BMI result Body Mass Index 25.4 Tobacco/Smoking Status: Tobacco use Status Tobacco use date assessed 11/21/23 11/21/23 10:12 Patient Tobacco Use Status Former Tobacco user 11/21/23 10:12 Tobacco use type Cigarette 11/21/23 10:12 e-Cigarette/Vaping Use Never Used 11/21/23 10:12 PHQ-9: PHQ-9 Score PHQ-9: Total score 0 11/21/23 10:29 Depression Screening Interpretation: Negative Thrive Assessment: Date of Thrive Assessment Date Thrive assessed 11/21/23 11/21/23 10:12 Currently or been in a relationship where the following occur: No concerns reported Resp Effort & Inspection: normal respiratory effort Auscultation: clear to auscultation bilaterally Cardio Jugular venous distension: no JVD Rate: regular rate Rhythm: regular rhythm Heart sounds: S1 normal heart sound present and S2 normal heart sound present Extrem General: Yes full ROM Assessment and Plan Assessment & Plan (1) GERD (gastroesophageal reflux disease): Comment: no improvement of his symptoms with omeprazole. Patient will be switched to an H2 dari BID and stool testing for H pylori -negative Code(s): K21.9 - Gastro-esophageal reflux disease without esophagitis Qualifiers: Esophagitis presence: without esophagitis Qualified Code(s): K21.9 - Gastro-esophageal reflux disease without esophagitis Plan: Continue pantoprazole and famotidine. (2) Spondylosis of lumbar spine: Code(s): M47.816 - Spondylosis without myelopathy or radiculopathy, lumbar region Plan: Continue tramadol as needed. Medications: Refilled tramadol 50 mg PO BID PRN 60 tabs 0RF pain 30 days Coding Level of Care Code Est Pt Level 3 (83400) Complex EM visit Add On G2211 Diagnoses Gastroesophageal reflux disease without esophagitis K21.9 Esophagitis presence: without esophagitis Spondylosis of lumbar spine M47.816 Additional Codes JESSICA-7 Assessment Billing - JESSICA-7 Assessment Tool: JESSICA-7 Assessment 14309 ([id number]) Time Spent (min) 19
[2023-11-21 10:08] VITALS: BP 100/74; PULSE 94; O2SAT 96; BMI 25.4
== END 2023-11-21 10:35 | disposition home or self-care (01) ==
PROVIDERS: PCP Internal Medicine; Visit Provider Internal Medicine
DX: K21.9 Gastro-esophageal reflux disease without esophagitis (principal); M47.816 Spondylosis without myelopathy or radiculopathy, lumbar region
CPT/HCPCS: 99213; G2211

== ENCOUNTER 2024-02-18 07:13 | Outpatient (AMB) | payer OTHER, SELFPAY ==
--- NOTE | 2024-02-18 07:22 | MHC.OFFVIS ---
Vital Signs 02/18/24 07:37 Height 6 ft Weight 187 lb BMI 25.4 BP 121/57 L Blood Pressure Location Lt brachial Position Sitting Pulse 81 Intake Visit Reasons: swallowing difficulty/Aleah former pt Intake Note: Patient follow up for follow up/ Aleah current patient. Patient cc: always clearing throat and then he get hiccup for the rest of the day. Aircraft Shipping Checker Required: Yes Aircraft Shipping Checker Name: Pamela [id number] Accompanied by: Self / Same As Patient Allergies No Known Allergies [No Known Allergies*] Allergy (Verified 11/21/23 10:26) Medication List - Last Reconciled 02/18/24 by Symone Chung MD acetaminophen 1,000 mg (2 x 500 mg) PO Q6H PRN bisacodyl (Dulcolax (bisacodyl)) 20 mg (4 x 5 mg) PO ONCE PRN 1 day escitalopram oxalate 10 mg PO DAILY famotidine 40 mg PO BEDTIME 90 days fenofibrate nanocrystallized 145 mg PO DAILY 90 days pantoprazole 40 mg PO DAILY 30 days polyethylene glycol 3350 (Miralax) 238 grams PO ONCE 1 day pregabalin 100 mg PO BID 30 days tramadol 50 mg PO BID PRN 30 days HPI HPI swallowing difficulty/Aleah former pt: Details: GI clinic visit for this 48 year old Palestinian-speaking male for FU of GERD and to schedule a screening colonoscopy TODAY'S VISIT: Telephone health companionPamela Patient follow up for follow up/ Aleah current patient. Patient cc: always clearing throat and then he get hiccup for the rest of the day. Heartburn for the past several months - medications help just a little Wakes up and notes a raspy throat - all day. Notes hiccups after he eats Patient denies symptoms of dysphagia, nausea, vomiting, change in appetite or weight. Denies recent change in bowel habits, constipation, diarrhea, black stools or rectal bleeding. Patient denies major cardiac or pulmonary problems, loud snoring or sleep apnea Denies problems with anesthesia in the past. Denies being on chronic anticoagulation, Admits to taking Advil 2 tab intermittently 1-2 times a week for back pain. Denies smoking or ETOH. Mom had heartburn. Patient denies known family history of colon polyps, colon cancer or other GI malignancies. Mat GM with pancreatic cancer around age 58 PAST EGD/COLONOSCOPY: LABS IN [facility] : Reviewed 07/18/23 stool Cologuard test was negative H pylori stool antigen was negative in 2019 IMAGING STUDIES: No recent GI imaging studies ENDOSCOPIC STUDIES: 2010 EGD was performed by Dr Rojo and showed hemorrhagis gastritis and duodenitis PAST GI HISTORY BY REVIEW OF MEDICAL RECORDS: Patient was seen by Mike Rene on 09/27/2023 48-year-old male referred for screening colonoscopy presents with acid reflux-ongoing for years tried several ppi- currently pepcid 40 mg-hoarseness- break through He has frequent throat clearing - His bowels are normal Appetite is good No N/V/D abdominal pain, fever or chills PLAN: EGD/colon MG prep Reflux precautions switch to pantoprazole 40 mg May take famotodine at HS if has breakthrough PFSH Medical History Physical exam Changes in vision Hypertriglyceridemia Overweight (BMI 25.0-29.9) GERD (gastroesophageal reflux disease) Spondylosis of lumbar spine Rash COVID-19 Myofascial pain syndrome of thoracic spine Myofascial pain syndrome Surgical History History of appendectomy Family History Mother Arthritis Hypertension Father No problems noted. 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 Current occupational exposures/hazards: No Cognitive needs: No Hearing needs: No Vision needs: No Review of Systems Const Reports fatigue, Denies fever(s), Denies headache(s) and Denies weight loss Eyes Denies eye discharge and Denies irritation ENT Reports Normal hearing present, Reports dysphagia, Denies dizziness and Denies headache(s) Card Denies chest pain, Denies leg edema and Denies dyspnea on exertion Resp Denies cough, Denies dyspnea on exertion and Denies wheezing GI Denies abdominal pain, Denies change in bowel habits, Reports dysphagia and Reports heartburn Denies dysuria and Reports urinary frequency Musc Denies back pain, Denies arthralgias and Reports other (arthritis) Skin/Breast Denies pruritus, Denies rash and Denies jaundice Neuro Reports Normal hearing present, Denies Abnormal speech present, Denies dizziness, Denies headache(s) and Denies seizure-like activity Psych Denies anxiety, Denies depression and Denies panic attacks Endo Denies cold intolerance, Reports fatigue, Denies flushing and Denies heat intolerance Wiley/Lymph Denies easy bleeding and Denies easy bruising Aller/Immun Denies wheezing Physical Exam Vital Signs: Last Vital Signs Pulse 81 02/18/24 07:37 BP 121/57 L 02/18/24 07:37 BMI result Body Mass Index 25.4 Const General: healthy appearing, no acute distress and anxious Nutritional Appearance: average body habitus Orientation/consciousness: patient oriented x3 Limitations: language barrier HEENT Head: Yes normal to inspection Ears: hearing grossly normal bilaterally Eyes Sclerae: sclerae normal Pupils: Equal, round and reactive pupils present Neck Neck: Yes normal visual inspection Chest Chest palpation & inspection: normal inspection of the chest Resp Effort & Inspection: normal respiratory effort Auscultation: clear to auscultation bilaterally Cardio Palpation: normal PMI Rate: regular rate Rhythm: regular rhythm Heart sounds: S1 normal heart sound present, S2 normal heart sound present and no murmurs GI Palpation (GI): Soft to palpation, nontender and No hepatosplenomegaly present Auscultation: normal bowel sounds Rectal Exam - Male: Yes deferred Skin General skin exam: no rashes or lesions noted Neuro General: patient oriented x3, gait normal and moves all extremities Cranial nerves: Yes Equal, round and reactive pupils present and Yes Normal hearing present Speech: No Abnormal speech present Psych Appearance: grossly normal Mental Status: mental status grossly normal Assessment & Plan Assessment & Plan (1) GERD (gastroesophageal reflux disease): Comment: no improvement of his symptoms with omeprazole. Patient will be switched to an H2 dari BID and stool testing for H pylori -negative Code(s): K21.9 - Gastro-esophageal reflux disease without esophagitis Category: Medical Qualifiers: Esophagitis presence: without esophagitis Qualified Code(s): K21.9 - Gastro-esophageal reflux disease without esophagitis Plan 48 year old Palestinian-speaking male with symptoms of heartburn for the past several months - medications help just a little Notes a raspy throat when he wakes up - suggestive of LPRD. Pt is scheduled for an EGD and colon with Dr Stokes on 05/01/24 Patient was advised to increase pantoprazole to 40 mg twice daily. Schedule further evaluation with a barium swallow. Proceed with EGD and colonoscopy as scheduled. Patient has a follow-up appointment with the Aleah Rene on 06/11/24 Orders: Orders FL barium swallow Today K21.9 - Gastro-esophageal reflux disease without esophagitis Medications: Changed From pantoprazole 40 mg PO DAILY 30 days 30 tabs 5RF K21.9 - Gastro-esophageal reflux disease without esophagitis To pantoprazole 40 mg PO BID 30 days 60 tabs 3RF K21.9 - Gastro-esophageal reflux disease without esophagitis Coding Level of Care Code Est Pt Level 4 (44779) Diagnoses Gastroesophageal reflux disease without esophagitis K21.9 Esophagitis presence: without esophagitis Time Spent (min) 22
[2024-02-18 07:37] VITALS: BP 121/57; PULSE 81; BMI 25.4
== END 2024-02-18 08:00 | disposition home or self-care (01) ==
PROVIDERS: PCP Internal Medicine; Visit Provider Internal Medicine Gastroenterology
DX: K21.9 Gastro-esophageal reflux disease without esophagitis (principal)
CPT/HCPCS: 99214

== ENCOUNTER → 2024-02-18 07:13 | Outpatient (BNVA) | payer OTHER, SELFPAY | PROVIDERS: PCP Internal Medicine; Visit Provider Internal Medicine Gastroenterology | DX: K21.9 Gastro-esophageal reflux disease without esophagitis (principal) | CPT/HCPCS: 99212 ==

== ENCOUNTER 2024-03-03 14:02 | Outpatient (AMB) | payer OTHER, SELFPAY ==
--- NOTE | 2024-03-03 14:19 | MHC.OFFVIS ---
Vital Signs 03/03/24 14:30 Height 6 ft Weight 188 lb 2 oz BMI 25.5 BP 140/80 H Blood Pressure Location Lt brachial Position Sitting Respiration 16 Pulse 69 Pulse Source Pulse Oximeter Pulse Oximetry (%) 95 Oxygen Delivery Method Room Air Intake Visit Reasons: Follow Up Intake Note: Patient comes in for medication review. Reports pain 7.5/10. Rn Radiology Required: Yes Rn Radiology Services: Rn Radiology Present Rn Radiology Name: Simran Holman [id number] Allergies No Known Allergies [No Known Allergies*] Allergy (Verified 03/03/24 14:29) HPI Comments Details: Fred is a very pleasant Martiniquais speaking male who is here to discuss continuation of his medication. The medication is Lyrica. He denies side effects of the Lyrica medication he reports Lyrica helps his pain. I recommended him to continue Lyrica new Lyrica was prescribed to him on 02/29/2024. He also today complains on pain in the left foot. I recommend him to request primary care physician to refer him to a good tie presser. In the past to perform trigger point injections for him, in the past he reports that he has penis becomes red and irritated when I do trigger point injections.?I never heard about complication like this, however recommended him to go for urological consult and explained to urologist what happened. Unfortunately this patient did not go to urologist to receive the consultation about this complication. Therefore cannot consider administering to him today any injections with steroids. We agreed that he will go to his urologist and clear out for us past to perform injections for him. He reports good results of Lyrica he denies side effects. On the MRI which we obtained on his request there is no pathology from L1-L5. L5-S1 diffusely bulging disc no canal stenosis partial effacement of perineural fat with mass effect on both L5 foraminal nerve roots. The importance of this finding on MRI approach is probably minimal because his pain is nonradicular in nature and in any case does not present itself in L5 bilateral distribution. [facility] Medical History Physical exam Changes in vision Hypertriglyceridemia Overweight (BMI 25.0-29.9) GERD (gastroesophageal reflux disease) Spondylosis of lumbar spine Rash COVID-19 Myofascial pain syndrome of thoracic spine Myofascial pain syndrome Surgical History History of appendectomy Family History Mother Arthritis Hypertension Father No problems noted. 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 Current occupational exposures/hazards: No Cognitive needs: No Hearing needs: No Vision needs: No Review of Systems Const All systems reviewed & are unremarkable except as noted in HPI and below ENT Reports Normal hearing present Neuro Reports Normal hearing present, Denies confusion and Denies Sensory deficit (Neuro) Psych Denies confusion Physical Exam Vital Signs: Last Vital Signs Pulse 69 03/03/24 14:30 Resp 16 03/03/24 14:30 BP 140/80 H 03/03/24 14:30 Pulse Ox 95 03/03/24 14:30 Oxygen Delivery Method Room Air 03/03/24 14:30 BMI result Body Mass Index 25.5 Const General: No confusion Orientation/consciousness: No confusion Eyes Pupils: Equal, round and reactive pupils present EOM: EOMs intact bilaterally Chest Chest palpation & inspection: normal inspection of the chest Resp Effort & Inspection: normal respiratory effort, able to speak in complete sentences, normal respiratory pattern, no audible wheezes and no cough Cardio Jugular venous distension: no JVD Back/Spine/Pelvis Other: tenderness on palpation in paraspinal spinal region in thoracic spine. there are significant muscular bands probably in the projection of bilateral paraspinal or rather bilateral latissimus dorsi muscle. Loading test is negative. Range of motion in lumbar spine is preserved. Rahul test is negative bilaterally. Neuro General: No confusion Cranial nerves: Yes Equal, round and reactive pupils present and Yes Normal hearing present Sensory Exam: No Sensory deficit (Neuro) Psych Speech and movement: Normal speech and movement present Affect: normal affect Attitude: cooperative Assessment & Plan Assessment & Plan (1) Myofascial pain syndrome: Code(s): M79.18 - Myalgia, other site Category: Medical (2) Myofascial pain syndrome of thoracic spine: Code(s): M79.18 - Myalgia, other site Category: Medical Plan He denies side effects of Lyrica. He reports Lyrica allow him to be more active perform better activities of daily living do better with social interactions. The prescription was refill on 02/29/2024. Complains on pain in the left foot. I requested him to ask primary care physician to refer him to a tie presser. Patient Instructions: hourly sign language interpreter from [employer] [id number] was helping us to maintain this conversation in Martiniquais. Coding Level of Care Code Est Pt Level 3 (89928) Diagnoses Myofascial pain syndrome M79.18 Myofascial pain syndrome of thoracic spine M79.18
[2024-03-03 14:30] VITALS: BP 140/80; PULSE 69; RESP 16; O2SAT 95; BMI 25.5
== END 2024-03-03 14:41 | disposition home or self-care (01) ==
PROVIDERS: PCP Internal Medicine; Visit Provider Anesthesiology
DX: M79.18 Myalgia, other site (principal)
CPT/HCPCS: 99213

== ENCOUNTER → 2024-03-03 14:02 | Outpatient (BNVA) | payer OTHER, SELFPAY | PROVIDERS: PCP Internal Medicine; Visit Provider Anesthesiology | DX: M79.18 Myalgia, other site (principal); Z51.81 Encounter for therapeutic drug level monitoring; Z79.899 Other long term (current) drug therapy | CPT/HCPCS: 99212 ==

== ENCOUNTER 2024-03-06 07:45 | Outpatient (REF) | payer OTHER, SELFPAY ==
--- NOTE | ~2024-03-06 | FL_ITS ---
EXAMINATION: XR FLUOROSCOPY UPPER GI WITH AIR CLINICAL INFORMATION: Dysphagia. Reflux. COMPARISON: None TECHNIQUE: Fluoroscopic air contrast upper GI examination was performed utilizing standard techniques with thin and thick barium and effervescent granules. Numerous spot images were obtained. FINDINGS: Lateral cine images of the oropharynx and hypopharynx demonstrate normal swallow mechanism with normal epiglottic inversion and soft palate elevation. No tracheal penetration, glottic or subglottic aspiration identified. No nasopharyngeal reflux present. Hypopharyngeal structures appear normal without evidence of mass or diverticulum. There was no significant cricopharyngeal achalasia. Dual and single contrast images of the esophagus demonstrate a normal caliber and contour. There is a slight granular appearance of the esophageal mucosa, suggestive of esophagitis. There is a small focus of contrast pooling in the right anterolateral most distal esophagus (RF 1-4, image 67) consistent with a small superficial ulceration. No evidence of stricture or mass. Esophageal peristalsis was normal. No evidence of hiatus hernia identified. Gastroesophageal reflux is seen up to the midesophagus. Dual contrast and single contrast images of the stomach demonstrated a normal contour. The gastric rugal folds have a thickened appearance, suggestive of gastritis. No masses or ulcerations are seen. Contrast freely passed into the gastric antrum and duodenal bulb without delay. Single and air-contrast images of the duodenal bulb demonstrate no abnormality. The duodenal sweep has a normal appearance, course, and mucosal fold appearance. The imaged proximal jejunum has a normal fold pattern and caliber. There is rapid transit of the barium column, with the distal ileum opacified in less than 10 minutes. There is no dilution of the barium as it passes distally. The distal ileal fold pattern is unremarkable. FLUOROSCOPY TIME: 5 minutes Number of Spot Images: 9 Number of Cine: 15 DOSE AREA PRODUCT: 3422 uGy-m2 (microgray-meter squared) FL/FL barium swallow with air IMPRESSION: 1. Slight granular appearance of the esophageal mucosa, suggestive of esophagitis. At least one small superficial submucosal ulceration in the distal right lateral esophagus. 2. Mild to moderate gastroesophageal reflux. 3. Thickened appearance of the gastric rugal folds, suggestive of gastritis. 4. Incidentally noted is rapid transit of the barium column, with the distal ileum opacified in less than 10 minutes. The mucosal fold pattern is unremarkable. There is no dilution of the contrast as it passes distally. Etiology is unclear. This procedure was performed by Franky Samaniego PA-C, and supervised by Dr. Morillo Electronically signed by: Alfred Morillo MD 03/06/2024 03:21 PM EDT
== END 2024-03-06 07:46 | disposition home or self-care (01) ==
LOC: HO.XRAY 07:45
PROVIDERS: PCP Internal Medicine; Visit Provider Internal Medicine Gastroenterology
DX: K21.9 Gastro-esophageal reflux disease without esophagitis (principal)
CPT/HCPCS: 74221

== ENCOUNTER → 2024-03-06 07:48 | Outpatient (BNV) | payer OTHER, SELFPAY | PROVIDERS: PCP Internal Medicine; Visit Provider Physician Assistant Surgical | DX: R13.10 Dysphagia, unspecified (principal); K21.9 Gastro-esophageal reflux disease without esophagitis | CPT/HCPCS: 74246 ==

== ENCOUNTER 2024-05-01 10:06 | Day surgery (SDC) | payer OTHER, SELFPAY ==
[2024-04-29 14:17] VITALS: BMI 25.4
[2024-05-01 10:34] VITALS: BP 130/86; PULSE 115; RESP 16; TEMP 37.3; O2SAT 96; BMI 24.9
[2024-05-01] MEDS: Lactated Ringers 1,000 ML 100 ML IVCONT (11:00)
--- NOTE | 2024-05-01 11:08 | HO.ANESPROP2 ---
Documented by User: Linda Elam NP 04/30/24 09:42 HPI - Anesthesia Eval Consult details Narrative: 49yo M for Upper Endoscopy and Colonoscopy PMF Active Problems Active Problems: All Active Problems Encounter for screening colonoscopy (Acute) Right tennis elbow (Acute) Rib pain on left side (Acute) Right elbow pain (Acute) Physical exam (Acute) Changes in vision (Acute) Hypertriglyceridemia (Acute) Overweight (BMI 25.0-29.9) (Acute) GERD (gastroesophageal reflux disease) (Acute) Spondylosis of lumbar spine (Acute) Atopic dermatitis (Acute) Xerosis of skin (Acute) Rash (Acute) COVID-19 (Acute) Myofascial pain syndrome of thoracic spine (Acute) Myofascial pain syndrome (Acute) Past Medical History Medical History Physical exam Changes in vision Hypertriglyceridemia Overweight (BMI 25.0-29.9) GERD (gastroesophageal reflux disease) Spondylosis of lumbar spine Rash COVID-19 Myofascial pain syndrome of thoracic spine Myofascial pain syndrome Family History Family History Mother Arthritis Hypertension Father No problems noted. 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 Current occupational exposures/hazards: No Cognitive needs: No Hearing needs: No Vision needs: No Meds Allergies Allergy/AdvReac Type Severity Reaction Status Date / Time No Known Allergies Allergy Verified 03/03/24 14:29 [No Known Allergies*] Home Medications ?Medication ?Instructions ?Recorded ?Confirmed ?Last Taken ?Type escitalopram oxalate 10 mg tablet 10 mg PO DAILY 09/27/23 02/18/24 Unknown History Exam Height,Weight and Vital Signs: Height 6 ft Weight 84.822 kg Assessment and Plan Assessment Anesthesia Assessment: Chart Reviewed Documented by User: Nicole Lyon DO 05/01/24 11:13 PMF Past Medical History Medical History Physical exam Changes in vision Hypertriglyceridemia Overweight (BMI 25.0-29.9) GERD (gastroesophageal reflux disease) Spondylosis of lumbar spine Rash COVID-19 Myofascial pain syndrome of thoracic spine Myofascial pain syndrome Family History Family History Mother Arthritis Hypertension Father No problems noted. Maternal Grandmother Colon cancer Family history of problems with anesthesia: No Surgical History Surgical History History of appendectomy History of Problems with Anesthesia: No Social History Social History Housing: Apartment Alcohol intake: never Patient Tobacco Use Status: Never used Tobacco Tobacco use type: Cigarette e-Cigarette/Vaping Use: Never Used Second Hand Smoke Exposure: No Use of substances other than those prescribed or required for medical reasons: Yes Are you DNR?: No Advance Directives: No Advance Directives Information Provided: Yes Nutrition Risks: No Nutritional Risk Poor oral hygiene: No service: No Current occupational status: employed 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 Current occupational exposures/hazards: No Cognitive needs: No Hearing needs: No Vision needs: No Meds Allergies Allergy/AdvReac Type Severity Reaction Status Date / Time No Known Allergies Allergy Verified 03/03/24 14:29 [No Known Allergies*] Home Medications ?Medication ?Instructions ?Recorded ?Confirmed ?Last Taken ?Type escitalopram oxalate 10 mg tablet 10 mg PO DAILY 09/27/23 02/18/24 Unknown History Exam Exam Date and Time: 05/01/24 1105 Height,Weight and Vital Signs: Height 6 ft Weight 84.822 kg Vital Signs Temperature 99.2 F 05/01/24 10:34 Pulse Rate 115 H 05/01/24 10:34 Respiratory Rate 16 05/01/24 10:34 Blood Pressure 130/86 05/01/24 10:34 Pulse Oximetry 96 05/01/24 10:34 Oxygen Delivery Method Room Air 05/01/24 10:34 Temperature 99.2 F 05/01/24 10:34 Pulse Rate 115 H 05/01/24 10:34 Respiratory Rate 16 05/01/24 10:34 Blood Pressure 130/86 05/01/24 10:34 Pulse Oximetry 96 05/01/24 10:34 Oxygen Delivery Method Room Air 05/01/24 10:34 Airway Mallampati Class: II TM Dist: >3cm Neck ROM: Full Loose/Missing/Broken Teeth: No (patient denies any loose or broken teeth) Heart: S1S2 Lungs: CTAB Assessment and Plan Assessment Anesthesia Assessment: Anesthesia Plan Discussed and Chart Reviewed Final Anesthetic Review Family History of Problems with Anesthesia: No History of Problems with Anesthesia: No NPO: Yes ASA Class: II Final Preanesthetic Review: No Changes in Pt Med Stat, Meds/Allgs Chart Reviewed, Consent Obtained/Reviewed and Anes Risks/Benef Reviewed Patient Risk: Low Procedure Risk: Low Anesthetic Plan Anesthetic Plan: MAC: and Agree w/ Assess. and Plan Disposition: Standard PACU
--- NOTE | 2024-05-01 12:00 | MHC.SHP ---
Pre-Procedural Eval Section A - 24 Hr Update-Section A only Date of Service: 05/01/24 Section B - Complete if H&P > 30 days Chief Complaint: gerd,screening Relevant Family History (Specify if Yes): No Relevant Social History: None Present Medications: see Short Stay Collaborative assessment Medical History: Significant History (Changes in vision Hypertriglyceridemia Overweight (BMI 25.0-29.9) GERD (gastroesophageal reflux disease) Spondylosis of lumbar spine Rash COVID-19 Myofascial pain syndrome of thoracic spine Myofascial pain syndrome) History of Previous Operations: Relevant previous surgery/procedure and date(s) (History of appendectomy) Allergies: Allergies Allergy/AdvReac Type Severity Reaction Status Date / Time No Known Allergies Allergy Verified 03/03/24 14:29 [No Known Allergies*] Review of Systems Sugical H&P ROS: Negative: Constitution, Cardiovascular, Respiratory, Neurological, Psychiatric, Hem-Onc, Allergic/Immunologic, Gastrointestinal, Genitourinary, Musculoskeletal, Integumentary, Endocrine and Eyes/Ears/Nose/Throat Exam Surgical H&P Exam: Normal: HEENT, Normal: Heart, Normal: Lungs, Normal: Extremities, Normal: Abdomen, Normal: Skin and Normal: Neurological Plan Diagnosis/Plan: Unchanged I have reviewed the history and physical and performed a pertinent physical examination on my patient. No changes have occurred unless specified. Time Spent With Patient Time: Total time managing care of this patient today ____ minutes.
--- NOTE | 2024-05-01 12:37 | P.OPN-COLO_ITS ---
Colonoscopy Operative Note Operative Note Date of Service: 05/01/24 Narrative: Operative Information Procedure Description: EGD, Colonoscopy Indication: GERD, screening Anesthesia: MAC FLEXIBLE TRANSORAL UPPER GASTROINTESTINAL ENDOSCOPY AND COLONOSCOPY PROCEDURE NOTE UPPER ENDOSCOPY Consent: Indications for the procedure and potential complications of bleeding, perforation, reaction to medications and missed diagnosis were discussed with the patient and informed consent was obtained. Instrument: Olympus GIF H 190 J mid size upper endoscope Monitoring: Vital signs and clinical assessment, continuous EKG monitoring, Pulse oximetry, Carbon Dioxide monitoring and blood pressure monitoring were done throughout the procedure. Procedure: The patient was placed in the left lateral decubitis position and pre-procedure medications were administered and a bite block was placed. The endoscope was inserted into the mouth and advanced under direct vision to the third part of duodenum. A careful inspection was made as the upper endoscope was withdrawn including a retroflexed examination of the proximal stomach; Findings and interventions are described below. Findings: Larynx:normal Esophagus: GE junction at 43 cm, diaphragm hiatus at 43 cm, incompetent LES, bx taken from GEJ and proximal esophagus- balloon dilation done at UES to 20 mm, no tear seen Stomach: Mild erythema. Biopsies were obtained. Grade 2 flap valve on retroflexed examination of the cardia. Duodenum: Normal bulb and descending duodenum, Intervention: Biopsies as noted above, balloon dilation COLONOSCOPY Instrument: Olympus variable stiffness pediatric scope 190L Colonoscopy Monitoring: Vital signs and clinical assessment, continuous EKG monitoring, Pulse oximetry, Carbon Dioxide monitoring and blood pressure monitoring were done throughout the procedure. Colon withdrawal time was 10 minutes. Procedure: The patient was placed in the left lateral decubitis position and pre-procedure medications were administered. After a digital rectal examination of the ano-rectum, the video colonoscope was inserted into the rectum and advanced through the colon to the cecum/TI. The colonoscope was slowly withdrawn in a retrograde panoramic fashion and the colon mucosa was carefully examined including a retroflexed view of the rectum. Findings and interventions are described below. Procedure Difficulty:moderate Findings: Terminal Ileum-normal Cecum:normal Ascending Colon: normal Transverse Colon -normal Descending Colon:normal Sigmoid Colon: moderate diverticulosis Rectum: Retroflexion with small internal hemorrhoids, grade I Anorectum - normal Colon preparation: [place] Bowel Preparation Scale Right colon; 1-2 Transverse colon: 2 Left colon; 2 (0 = Unprepared colon segment with mucosa not seen due to solid stool that cannot be cleared. 1 = Portion of mucosa of the colon segment seen, but other areas of the colon segment not well seen due to staining, residual stool and/or opaque liquid. 2 = Minor amount of residual staining, small fragments of stool and/or opaque liquid, but mucosa of colon segment seen well. 3 = Entire mucosa of colon segment seen well with no residual staining, small fragments of stool or opaque liquid) Impression and Post Procedure Diagnosis: Endoscopy Findings: incompetent LES gastritis Colonoscopy Findings: diverticulosis internal hemorrhoids Plan: Await Pathology results Repeat Colonoscopy in 5 years due to some areas of fair prep on right or earlier if clinically indicated High fiber diet leaflet avoid straining at stool, epsom salts and sitz bath, anusol supps or cream GERD precautions, might benefit from Linx procedure, or anti reflux ablation therapy Above findings were reviewed with the patient and relevant handouts were provided if indicated.
[2024-05-01 12:44] VITALS: BP 129/77; PULSE 114; RESP 16; TEMP 36.6; O2SAT 97
[2024-05-01 12:59] VITALS: BP 132/79; PULSE 83; RESP 16; TEMP 36.3; O2SAT 98
== END 2024-05-01 13:31 | disposition home or self-care (01) ==
PROVIDERS: PCP Internal Medicine; Visit Provider Internal Medicine Gastroenterology
PROC: (CPT 45378; principal; 2024-05-01 12:20)
DX: Z12.11 Encounter for screening for malignant neoplasm of colon (principal); K57.30 Diverticulosis of large intestine without perforation or abscess without bleeding; K64.0 First degree hemorrhoids; R13.10 Dysphagia, unspecified; K21.9 Gastro-esophageal reflux disease without esophagitis; K29.50 Unspecified chronic gastritis without bleeding; K44.9 Diaphragmatic hernia without obstruction or gangrene
CPT/HCPCS: 45378; 43249; 43239; 88305; 88313; 88342; J2003; J2704

== ENCOUNTER → 2024-05-01 10:06 | Outpatient (BNV) | payer OTHER, SELFPAY | PROVIDERS: PCP Internal Medicine; Visit Provider Internal Medicine Gastroenterology | DX: Z12.11 Encounter for screening for malignant neoplasm of colon (principal); K57.30 Diverticulosis of large intestine without perforation or abscess without bleeding; K64.0 First degree hemorrhoids; K21.9 Gastro-esophageal reflux disease without esophagitis; K29.70 Gastritis, unspecified, without bleeding; K22.4 Dyskinesia of esophagus | CPT/HCPCS: 43239; 43249; 45378 ==

== ENCOUNTER 2024-05-21 15:58 | Outpatient (AMB) | payer OTHER, SELFPAY ==
--- NOTE | 2024-05-21 16:05 | A.OFFPC_ITS ---
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: No Accompanied by: Self / Same As Patient Allergies No Known Allergies [No Known Allergies*] Allergy (Verified 05/21/24 16:28) Medication List - Last Reconciled 05/21/24 by Vanita Garrison MD escitalopram oxalate 10 mg PO DAILY famotidine 40 mg PO BEDTIME 90 days fenofibrate nanocrystallized 145 mg PO DAILY 90 days pantoprazole 40 mg PO DAILY polyethylene glycol 3350 (Miralax) 238 grams PO ONCE 1 day pregabalin 100 mg PO BID 30 days sucralfate (Carafate) 1 g PO BID 30 days tramadol 50 mg PO BID PRN 30 days Tobacco use date assessed: 05/21/24 Dental Screening Dental Screen Date: 05/21/24 Did you have a dental visit in the last 12 months?: Yes Did you have a dental problem in the last 6 months where you did not have access to dental care?: No Was dental information given to patient?: Patient has dentist HPI HPI Comments History of Present Illness Details This is a 49-year-old male that comes for his physical exam. Had colonoscopy recently showing internal hemorrhoids. Needs Tdap vaccine. Denies any chest pain or shortness on breath. Compliant with his medications in which he is aware that tramadol can cause addiction and sedation as well as Lyrica. FOR[facility]LY [facility] Medical History (Updated 05/21/24 @ 19:12 by Vanita Garrison MD) Physical exam Changes in vision Hypertriglyceridemia Overweight (BMI 25.0-29.9) GERD (gastroesophageal reflux disease) Spondylosis of lumbar spine Rash COVID-19 Myofascial pain syndrome of thoracic spine Myofascial pain syndrome Surgical History History of appendectomy Family History Mother Arthritis Hypertension Father No problems noted. 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 1. Little interest or pleasure in doing things: not at all 2. Feeling down, depressed, or hopeless: not at all 3. Trouble falling or staying asleep, or sleeping too much: not at all 4. Feeling tired or having little energy: not at all 5. Poor appetite or overeating: not at all 6. Feeling bad about yourself - or that you are a failure or have let yourself or your family down: not at all 7. Trouble concentrating on things, such as reading the newspaper or watching television: not at all 8. Moving or speaking so slowly that other people could have noticed. Or the opposite - being so fidgety or restless that you have been moving around a lot more than usual: not at all 9. Thoughts that you would be better off or of hurting yourself in some way: not at all Total score: 0 Depression Screening Interpretation: Negative Depression Screening Done: Yes 56945 - PHQ-9 Billing: Yes Source: Developed by Drs. Dejuan Amador, Leta Calderon, Dieter Sarah and colleagues, with an educational abhay from [employer]. Thrive Questionnaire Date Thrive assessed: 05/21/24 I am a: Patient What is your living situation today?: I have a steady place to live Within the past 12 months, did the food you bought not last and you didn't have the money to get more?: I choose not to answer this question Within the past 12 months, did you worry whether your food would run out before you got money to buy more?: I choose not to answer this question Do you have trouble paying for medicines?: No Do you have trouble getting transportation to medical appointments?: No Do you have trouble paying your heating and electricity bill?: No Do you have trouble taking care of your child, family member or friend?: No Do you have trouble with day-to-day activities such as bathing, preparing meals, shopping, managing finances, etc.?: No Are you currently unemployed and looking for a job?: No Are you interested in more education?: I choose not to answer this question Please select the resources that you would like help with: Job search/training Currently or been in a relationship where the following occur: No concerns reported THRIVE Score: 0 AUDIT C Alcohol Use Questionnaire (AUDIT-C) 1. How often do you have a drink containing alcohol?: Never Total Score: 0 Score Reviewed/Action Taken: No JESSICA-7 AMB Questionnaire JESSICA-7 Date JESSICA - 7 assessed: 05/21/24 Feeling nervous, anxious, or on edge: 0 = Not at all Not being able to stop or control worryin = Not at all Worrying too much about different things: 0 = Not at all Trouble relaxin = Not at all Being so restless that it is hard to sit still: 0 = Not at all Becoming easily annoyed or irritable: 2 = More than half the days Feeling afraid as if something awful might happen: 0 = Not at all Total JESSICA-7 score (0-4 normal; 5-9 mild; 10-14 moderate; 15-21 severe): 2 Source: Developed by Drs. Dejuan Amador, Leta Calderon, Dieter Sarah and colleagues, with an educational abhay from [employer]. JESSICA-7 Assessment Billing JESSICA-7 Assessment Tool: JESSICA-7 Assessment 99905 Review of Systems Const All systems reviewed & are unremarkable except as noted in HPI and below Eyes Reports no additional complaints, Denies change in vision and Denies other visual disturbances Card Denies chest pain at rest, Denies chest pain with activity, Denies edema, Denies irregular heart rhythm, Denies claudication, Denies dyspnea, Denies dyspnea on exertion, Denies orthopnea, Denies paroxysmal nocturnal dyspnea and Denies slow heart rate Resp Denies cough, Denies dyspnea and Denies dyspnea on exertion GI Denies abdominal pain, Denies change in bowel habits, Denies excessive flatus, Denies nausea and Denies vomiting Denies urinary hesitancy, Denies urinary incontinence and Denies urinary urgency Musc Denies abnormal gait, Denies atrophy, Denies deformity and Denies limited range of motion Skin/Breast Denies bleeding lesions, Denies changing lesions and Denies rash Neuro Denies abnormal gait, Denies behavioral changes, Denies confusion and Denies lack of coordination Psych Denies behavioral changes and Denies confusion Physical exam (Primary Care) Vital Signs: Last Vital Signs BP 118/78 05/21/24 16:08 BMI result Body Mass Index 25.0 Tobacco/Smoking Status: Tobacco use Status Tobacco use date assessed 05/21/24 05/21/24 16:12 Patient Tobacco Use Status Never used Tobacco 05/21/24 16:12 Tobacco use type Cigarette 05/21/24 16:12 e-Cigarette/Vaping Use Never Used 05/21/24 16:12 PHQ-9: PHQ-9 Score PHQ-9: Total score 0 05/21/24 17:05 Depression Screening Interpretation: Negative Thrive Assessment: Date of Thrive Assessment Date Thrive assessed 05/21/24 05/21/24 16:12 Currently or been in a relationship where the following occur: No concerns reported Const General: No confusion Orientation/consciousness: patient oriented x3 and No confusion HENMT Head: Yes normal to inspection, Yes normocephalic and Yes atraumatic Ears: external ears normal Eyes General: appearance normal, both eyes and all related structures Eyelids: Yes eyelids normal Conjunctivae: conjunctivae normal Neck Neck: Yes normal visual inspection and Yes supple Resp Effort & Inspection: normal respiratory effort Auscultation: clear to auscultation bilaterally Cardio Jugular venous distension: no JVD Rate: regular rate Rhythm: regular rhythm Heart sounds: S1 normal heart sound present and S2 normal heart sound present GI Inspection: Yes normal to inspection Palpation (GI): Soft to palpation and nontender Auscultation: normal bowel sounds Skin General skin exam: no rashes or lesions noted Neuro General: patient oriented x3, no focal motor deficits and No confusion Extrem General: Yes full ROM Psych Appearance: grossly normal Office Procedures Flu Questionnaire Does the patient have a severe egg allergy?: No Immunizations Fluarix Triv [id number] (PF) 45 mcg (15 mcg x 3)/0.5 mL IM syringe Performing Provider: Vanita Garrison MD [facility] Documented (not given) by: HEAVEN Rios on 05/21/24 16:12 Reason Not Given: Patient Refused Boostrix Tdap 2.5 Lf unit-8 mcg-5 Lf/0.5 mL intramuscular syringe Performing Provider: Vanita Garrison MD Performing Location: [facility] Administered by: HEAVEN Rios on 05/21/24 16:46 Dose Route Admin Location Dispensed Lot Number Expiration Date NDC [employer] Consultant 0.5 mL IM Left Deltoid 0.5 mL [id number] 06/07/26 [id number] [employer] VIS Given Date VIS Provided VIS Publication Date 05/21/24 Single Vaccine 20 Eligibility Eligibility Date Funding Source Not [facility] [employer] Eligible 05/21/24 Private Coding Level of Care Code Est Pt Prev Care 40-64y(82258) Diagnoses Physical exam Z00.00 Additional Codes JESSICA-7 Assessment Billing - JESSICA-7 Assessment Tool: JESSICA-7 Assessment 21095 ([id number]) PHQ-9 - 11357 - PHQ-9 Billing: Yes ([id number]) Time Spent (min) 31 Assessment & Plan Assessment & Plan (1) Physical exam: Code(s): Z00.00 - Encounter for general adult medical examination without abnormal findings Category: Medical Plan: Repeat in a year. Orders: Orders Influenza [id number] Immunization Today Z23 - Encounter for immunization Comprehensive Disney. Panel Fast Today Z00.00 - Encounter for general adult medical examination without abnormal findings TDaP Immunization Today Z23 - Encounter for immunization Lipid Panel Today E78.5 - Hyperlipidemia, unspecified
[2024-05-21 16:08] VITALS: BP 118/78; BMI 25.0
== END 2024-05-21 16:45 | disposition home or self-care (01) ==
PROVIDERS: PCP Internal Medicine; Visit Provider Internal Medicine
DX: Z00.00 Encounter for general adult medical examination without abnormal findings (principal); Z23 Encounter for immunization

== ENCOUNTER → 2024-05-21 15:58 | Outpatient (BNVA) | payer OTHER, SELFPAY | PROVIDERS: PCP Internal Medicine; Visit Provider Internal Medicine | DX: Z00.00 Encounter for general adult medical examination without abnormal findings (principal); E78.5 Hyperlipidemia, unspecified; Z23 Encounter for immunization | CPT/HCPCS: 90471; 90472; 90715; 96127; 99396 ==

== ENCOUNTER → 2024-06-06 14:13 | Outpatient (BNVA) | payer OTHER, SELFPAY | PROVIDERS: PCP Internal Medicine; Visit Provider Nurse Practitioner Family | DX: K21.00 Gastro-esophageal reflux disease with esophagitis, without bleeding (principal); K59.01 Slow transit constipation; R14.0 Abdominal distension (gaseous) | CPT/HCPCS: 99212 ==

== ENCOUNTER 2024-06-27 13:30 | Outpatient (AMB) | payer OTHER, SELFPAY ==
--- NOTE | 2024-06-27 13:36 | AM.OFFWIN_ITS ---
Intake Vital Signs 06/27/24 13:37 Weight 189 lb BP 114/80 Blood Pressure Location Lt brachial Position Sitting Pulse 85 Pulse Source Pulse Oximeter Pulse Oximetry (%) 96 Oxygen Delivery Method Room Air Intake Visit Reasons: EP-both hands big thumb fingers getting dark Intake Note: Patient here for thumb nail bed that has a dark spot, and also on his toe that has been going on for about 2 weeks. Patient Tobacco Use Status: Never used Tobacco Allergies No Known Allergies [No Known Allergies*] Allergy (Verified 06/27/24 13:39) Do you need a note to return to daycare/school/sports/work: No HPI HPI Comments History of Present Illness Details Patient is a 49-year-old male complaining of right great toenail changes for the last 2 weeks. He has been using some creams and ointments on them but it does not seem to be helping. He says it is starting to become slightly painful. He also has noticed some changes around his fingernails but these are not as noticeable. He does admit to a new medication given by his GI doctor that he started in May, Carafate. He denies any trauma to the toenail. 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 [facility]LY [facility] Medical History Physical exam Changes in vision Hypertriglyceridemia Overweight (BMI 25.0-29.9) GERD (gastroesophageal reflux disease) Spondylosis of lumbar spine Rash COVID-19 Myofascial pain syndrome of thoracic spine Myofascial pain syndrome Surgical History History of appendectomy Family History Mother Arthritis Hypertension Father No problems noted. 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 Current occupational exposures/hazards: No Cognitive needs: No Hearing needs: No Vision needs: No Review of Systems Const All systems reviewed & are unremarkable except as noted in HPI and below Physical Exam Vital Signs: Last Vital Signs Pulse 85 06/27/24 13:37 BP 114/80 06/27/24 13:37 Pulse Ox 96 06/27/24 13:37 Oxygen Delivery Method Room Air 06/27/24 13:37 Const General: cooperative, healthy appearing, comfortable, no acute distress and well developed Orientation/consciousness: patient oriented x3 Limitations: no limitations HEENT Head: Yes normal to inspection Neck Neck: Yes normal visual inspection and Yes supple Skin Other: Right great toenail has a transverse brown line at the base of the nail bed, no warmth, no drainage, no erythema. Full range of motion of the right great toe. 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 I looked up the side effects and melanonychia is not listed as one, so this is unlikely. I did send a referral to dermatology so they could do a further workup and rule out a melanoma. Patient was encouraged to make sure he goes to the corporate controller appointment ias it is very important. Orders: Referrals Dermatology Referral L60.8 - Other nail disorders Coding Level of Care Code Est Pt Level 4 (66468) Diagnoses Transverse melanonychia L60.8
[2024-06-27 13:37] VITALS: BP 114/80; PULSE 85; O2SAT 96
--- OUTSIDE RECORDS SUMMARY | 2024-06-27 13:39 | XMS_ITS | Clinical Summary ---
Author Organization [facility] Address [address] [place] [address] Care Team Providers Care Allergist/Md Name Role Phone Unavailable Primary Care Provider Unavailabl e Surgical History Surgery Date Site/Laterality Comments APPENDECTOMY PROCEDURE: HISTORICAL APPENDECTOMY ORTHOPEDIC SURGERY Right PROCEDURE: HISTORICAL ORTHOPEDIC SURGERY; COMMENT: 4th finger fx repair Medical History Medical History Date Comments GERD (gastroesophageal reflux disease) 10/26/2016 DX:GERD (gastroesophageal reflux disease) Vitamin D deficiency 10/26/2016 DX:Vitamin D deficiency Chest wall muscle strain 12/12/2016 DX:Ches t wall muscle strain Lumbosacral spondylosis with radiculopathy 12/12/2016 DX:Lumbosacral spondylosis w ith radiculopathy; COMMENT: PSS multiple injections Chronic back pain 10/20/2017 DX:Chronic carrillo k pain Inguinal hernia DX:Inguinal ana ia Family History Medical History Relation Name Comments Pancreatic cancer Maternal Grandmother Hypertension Mother Relation Name Status Comments Daughter Alive Maternal Grandmother Mother Alive Son Alive Social History Tobacco Use Types Packs/Day Years Used Date Smoking Tobacco: Former Smokeless Tobacco: Never Alcohol Use Standard Drinks/Week Comments No 0 (1 standard drink = 0.6 oz pur e alcohol) Sex and Gender Information Value Date Recorded Sex Assigned at Not on file Legal Sex Male 12:58 AM EST Gender Identity Not on file Sexual Orientation Not on file Obstetrics History Plan of Treatment Health Maintenance Due Date Last Done Comments DTaP,Tdap,and Td Vaccines (1 - Tdap) 1992 Hepatitis B Vaccines (1 of 3 - 19+ 3-dose series) 1992 Pneumococcal Vaccine: 50+ Ye ars (1 of 1 - PCV) 2023 Zoster Vaccines (1 of 2) 2023 COVID-19 Vaccine (2023-2 5 season) 2024 Influenza Vaccine (#1) 2024 HIB Vaccines Aged Out No longer eligi ble based on patient's age to complete this topic HPV Vaccines Aged Out No longer eligi ble based on patient's age to complete this topic Hepatitis A Vaccines Aged Out No long er eligible based on patient's age to complete this topic IPV Vaccines Aged Out No longer eligi ble based on patient's age to complete this topic MMR Vaccines Aged Out No longer eligi ble based on patient's age to complete this topic Meningococcal ACWY Vaccine Aged Out N o longer eligible based on patient's age to complete this topic Meningococcal B Vacine Aged Out No lo nger eligible based on patient's age to complete this topic Pneumococcal Vaccine: Pediat rics (0 to 5 Years) and At-Risk Patients (6 to 64 Years) Aged Out No longer eligible b ased on patient's age to complete this topic RSV Immunization Patients Un gallo 20 months Aged Out No longer eligible b ased on patient's age to complete this topic Varicella Vaccines Aged Out No longer eligible based on patient's age to complete this topic
--- OUTSIDE RECORDS SUMMARY | 2024-06-27 13:39 | XMS_ITS | Encounter Summary ---
Author Organization [employer] [facility] Address [address] [place] [address] [address] [place] [address] Care Team Providers Care Box Stacker Name Role Phone Unavailable Primary Care Provider Unavailabl e Encounter Details Date Type Department Care Team (Latest Contact Info) Description 10/14/2021 Abstract [facility] CONVERSIONS Dental, Provider, DDS Social History Tobacco Use Types Packs/Day Years Used Date Smoking Tobacco: Never Assessed Sex and Gender Information Value Date Recorded Sex Assigned at Male 03/13/2022 10:20 AM EDT Legal Sex Male 10:20 AM EDT Gender Identity Male 03/13/2022 10:20 AM EDT Sexual Orientation Straight 03/13/2022 10 :20 AM EDT documented as of this encounter Plan of Treatment Upcoming Encounters Date Type Department Care Team (Late st Contact Info) Description 07/21/2024 11:00 AM EDT Office Visit [facility] ADULT DENTAL [address] [place] [address] Bueno-Jimenes, Mari, DDS [address] [place] [address] 08/06/2024 11:00 AM EDT Office Visit [facility] ADULT [facility] [address] [place] [address] Brook, Danna [address] [place] [address] documented as of this encounter Visit Diagnoses Not on filedocumented in this encounter
--- OUTSIDE RECORDS SUMMARY | 2024-06-27 13:39 | XMS_ITS | Encounter Summary ---
Author Organization [facility] [facility] Address [address] [place] [address] [address] [place] [address] Care Team Providers Care Compound Worker Name Role Phone Unavailable Primary Care Provider Unavailabl e Encounter Details Date Type Department Care Team (Latest Contact Info) Description 07/22/2020 Abstract [facility] CONVERSIONS Dental, Provider, DDS Social History Tobacco [...] Description 07/21/2024 11:00 AM EDT Office Visit [facility] ADULT DENTAL [address] [place] [address] Bueno-Jimenes, Mari, DDS [address] [place] [address] 08/06/2024 11:00 AM EDT Office Visit [facility] ADULT DENTAL [address] [place] [address] Brook, Danna [address] [place] [address] documented as of this encounter Visit Diagnoses Not on filedocumented in this encounter
--- OUTSIDE RECORDS SUMMARY | 2024-06-27 13:40 | XMS_ITS | Encounter Summary ---
Author Organization [employer] [facility] Address [address] [place] [address] 7 [place] [address] Care Team Providers Care Metal Wire Technician Name Role Phone Unavailable Primary Care Provider Unavailabl e Reason for Visit * Reason Comments adjust bite on crown Encounter Details Date Type Department Care Team ([facility] Contact Info) Description 06/06/2024 1:00 PM EST Office Visit [facility] [address] [place] [address] Mari Veliz DDS [address] [place] [address] Social History Tobacco Use Types Packs/Day Years Used Date Smoking Tobacco: Former Cigarettes Passive Smoke Exposure: Current Smokeless Tobacco: Never Alcohol Use Standard Drinks/Week Comments Never 0 (1 standard drink = 0.6 oz pur e alcohol) Sex and Gender Information Value Date Recorded Sex Assigned at Male 03/13/2022 10:20 AM EDT Legal Sex Male 10:20 AM EDT Gender Identity Male 03/13/2022 10:20 AM EDT Sexual Orientation Straight 03/13/2022 10 :20 AM EDT documented as of this encounter Progress Notes * Mari Veliz DDS - 06/06/2024 1:00 PM EST Pt in office for adjustment on crown cemented yesterday Pt feels is in high occlusion. Adjustment made with football bur and articulating paper. Patent left satisfied with adjustments made. Nv: Pt to continue with Dr. Salinas for periodic exam. documented in this encounter Plan of Treatment Upcoming Encounters Date Type Department Care Team ([facility] st Contact Info) Description 07/21/2024 11:00 AM EDT Office Visit [facility] [address] [place], [place] [phone] Mari Veliz DDS [address] [place], [place] [phone] 08/06/2024 11:00 AM EDT Office Visit [facility] [address] [place], [place] [phone] Danna Doe [address] [place], [place] [phone] documented as of this encounter Procedures Procedure Name Priority Date/Time Associated Diagnosis Comments NO CHARGE PROCEDURE Routine 06/06/2024 1:00 PM EST documented in this encounter Visit Diagnoses Not on filedocumented in this encounter
--- OUTSIDE RECORDS SUMMARY | 2024-06-27 13:40 | XMS_ITS | Encounter Summary ---
Author Organization [employer] [facility] Address [address] [place] [address] 7 [place] [address] Care Team Providers Care Clean Energy Policy Analyst Name Role Phone Unavailable Primary Care Provider Unavailabl e Reason for Visit * Reason Comments crown insert #29 Encounter Details Date Type Department Care Team ([facility] st Contact Info) Description 06/05/2024 2:30 PM EST Office Visit [facility]ULT [facility] [address] [place] [address] Mari Veliz DDS [address] [place] [address] Full coverage crown needed for root canal-treated tooth (Primary Dx) Social History Tobacco Use Types Packs/Day Years [...] Progress Notes * Mari Veliz DDS - 06/05/2024 2:30 PM EST Patient ID: Fred Vogt is a 49 y.o. male. Time Out: Timeout Date: 06/05/24, Timeout Time: 1432 (crown insert) Location: [facility] Tooth: #29 Procedure: [place] delivery Verified the above with patient, home based assistant, and provider. Confirmed via patient's chart, intraorally and by radiographs. Order Takers Supervisor: not applicable Chief Complaint Patient presents with crown insert #29 Medical Hx: Vitals: There were no vitals taken for this visit. Medications, Med Hx reviewed with patient and updated in chart. Consent Obtained: The risks, benefits, indications, potential complications, and alternatives were explained to the patient and informed consent was obtained with good understanding. Treatment Provided: Dental procedures in this visit [id number] - CROWN - PORCELAIN/CERAMIC 29 (Completed) Service provider: Mari Veliz DDS Billing provider: Mari Veliz DDS [id number] - BITEWING - SINGLE RADIOGRAPHIC IMAGE (Completed) Service provider: Mari Veliz DDS Billing provider: Mari Veliz DDS [id number] - ADJUNCTIVE GENERAL SERVICES - PROFESSIONAL VISITS - CASE PRESENTATION, SUBSEQUENT TO DETAILED AND EXTENSIVE TREATMENT PLANNING (Completed) Service provider: Mari Veliz DDS Billing provider: Mari Veliz DDS Isolation: high speed suction and cotton rolls Removed Provisional and cleaned excess cement, pumiced tooth as needed. Tried on final congregation Verified interproximal contacts and margins BW taken to confirm margins and contacts Occlusion adjusted as needed Tooth Treatment: 37% Phosphoric Acid Etch and Executive Vice President And Chief Operating Officer applied Cemented with: Relyx Unicem Cleaned excess cement, flossed Patient satisfied with comfort and esthetics. POI given. Patient discharged alert, oriented, and in stable condition Ammonia Solution Preparer: Aga Ruelas Dentist: Mari Veliz DDS documented in this encounter Plan of Treatment Upcoming Encounters Date Type Department Care Team (Late st Contact Info) Description 07/21/2024 11:00 AM EDT Office Visit [facility] [address] [place] [address] Mari Veliz DDS [address] [place] [address] 08/06/2024 11:00 AM EDT Office Visit [facility] [address] [place] [address] Danna Doe [address] [place] [address] documented as of this encounter Procedures Procedure Name Priority Date/Time Associated Diagnosis Comments 29 CROWN - PORCELAIN/CERAMIC Routine 06/05/2024 2:30 PM EST Full coverage crown needed for root canal-treated tooth CASE PRESENTATION, DETAILED AND EXTENSIVE TREATMENT PLANNING Routine 06/05/2024 2:30 PM EST Full coverage crown needed for root canal-treated tooth BITEWING - SINGLE RADIOGRAPHIC IMAGE Routine 06/05/2024 2:30 PM EST Full coverage crown needed for root canal-treated tooth documented in this encounter Visit Diagnoses Diagnosis Full coverage crown needed for root canal-treated tooth- Primary documented in this encounter
--- OUTSIDE RECORDS SUMMARY | 2024-06-27 13:40 | XMS_ITS | Clinical Summary ---
Author Organization [employer] Address [address] [place] [address] Care Team Providers Care Liquor Gallery Operator Name Role Phone Unavailable Primary Care Provider Unavailabl e Allergies No known active allergies Medications pregabalin (Lyrica) 100 MG capsule TAKE 1 CAPSULE ORALLY 2 TIMES A DAY FOR 30 DAYS 2 Active traMADol (Ultram) 50 MG tablet TAKE ONE TABLET BY MOUTH TWICE A DAY NEEDED FOR PAIN FOR 30 DAYS 3 Active omeprazole OTC (PriLOSEC OTC) 20 MG EC tablet Take 2 tablets by mouth. 3 Active fenofibrate (Tricor) 145 MG tablet Take 145 mg by mouth in the morning. 3 Active naproxen (Naprosyn) 125 MG/5ML suspension TAKE 10-20ML BY MOUTH TWICE DAILY NEEDED FOR PAIN 3 Active pantoprazole (ProtoNix) 40 MG EC tablet Take 40 mg by mouth Once per day. Active escitalopram (Lexapro) 10 MG tablet Take 5 mg by mouth Once per day. 4 Active famotidine (Pepcid) 40 MG tablet Take 40 mg by mouth at bedtime. 4 Active sucralfate (Carafate) 1 g tablet Take 1 g by mouth before breakfast and before evening meal. 4 Active Active Problems Problem Noted Date Diagnosed Date Normal oral exam 01/23/2024 Dental plaque 12/12/2023 Fractured dental anglican with loss of materi al 02/05/2023 Dental calculus 06/28/2022 Encounters Date Type Department Care Team Description 06/06/2024 1:00 PM EST Office Visit [facility] [address] [place] [address] Bueno-Jimenes, Mari, DDS 06/05/2024 2:30 PM EST Office Visit [facility] [address] [facility] [place] [address] Bueno-Jimenes, Mari, DDS Full coverage crown needed for root canal-treated tooth (Primary Dx) 05/26/2024 1:15 PM EST Office Visit [facility] [address] [facility] [place] [address] Bueno-Jimenes, Mari, DDS 05/22/2024 1:30 PM EST Office Visit [facility] [address] [facility] [place] [address] Bueno-Jimenes, Mari, DDS Fractured dental anglican with loss of material (Primary Dx); Full coverage crown needed for root canal-treated tooth 04/21/2024 2:00 PM EST Office Visit [facility] [address] [place] [address] Bueno-Jimenes, Mari, DDS Symptomatic irreversible pulpitis (Primary Dx) from Last 3 Months Social History Tobacco Use Types Packs/Day Years Used Date Smoking Tobacco: Former Cigarettes Passive Smoke Exposure: Current Smokeless Tobacco: Never Tobacco Cessation:Counseling Given: Not Answered Alcohol Use Standard Drinks/Week Comments Never 0 (1 standard drink = 0.6 oz pur e alcohol) Sex and Gender Information Value Date Recorded Sex Assigned at Male 03/13/2022 10:20 AM EDT Legal Sex Male 10:20 AM EDT Gender Identity Male 03/13/2022 10:20 AM EDT Sexual Orientation Straight 03/13/2022 10 :20 AM EDT Last Filed Vital Signs Vital Sign Reading Time Taken Comments Blood Pressure 126/70 04/21/2024 2:22 PM EST Pulse 74 02/05/2023 10:06 AM EDT Temperature - - Respiratory Rate - - Oxygen Saturation - - Inhaled Oxygen Concentration - - Weight - - Height - - Body Mass Index - - Plan of Treatment Upcoming Encounters Date Type Department Care Team (Late st Contact Info) Description 07/21/2024 11:00 AM EDT Office Visit [facility] [address] [place] [address] Mari Veliz, DDS [address] [place] [address] 08/06/2024 11:00 AM EDT Office Visit [facility] [address] [place] [address] Luis Carlos Doearis [address] [place] [address] Health Maintenance Due Date Last Done Comments CT Colonography 1973 Colonoscopy 1973 Colorectal Cancer Screening 1973 Depression Screening 1973 FIT DNA/Cologuard 1973 FIT 1973 FOBT 1973 HIV Screening 1973 Lipid Panel 1973 SDOH Screening 1973 Sigmoidoscopy 1973 Alcohol/Substance Use Screening 1985 Family Planning (PISQ) 1988 Hepatitis C Screening 1991 Hepatitis B Vaccines (1 of 3 - 19+ 3-dose series) 1992 Pneumococcal Vaccine: 50+ Years (1 of 1 - PCV) 2023 Zoster Vaccines (1 of 2) 2023 COVID-19 Vaccine ( - 2023-2 5 season) 2024 11/11/2021, 06/15/2021, 05/25/2021 Influenza Vaccine (#1) 2024 03/06/2016 Dental Oral Exam 06/14/2024 12/12/2023, 02/05/2023, 10/14/2021 Dental Prophylaxis 06/14/2024 12/12/2023, 02/05/2023, 06/28/2022 Dental X-Ray: Full Mouth 10/15/2024 10/14/2021 Dental X-Ray: Bitewings 06/06/2025 06/05/19, 12/12/2023, 02/05/2023 Tobacco Screening 06/06/2025 06/06/2024 DTaP/Tdap/Td Vaccines (4 - T d or Tdap) 05/21/2034 05/21/2024, 03/26/2015, 02/28/2010 RSV Patients and Patients Aged 60 years or older (1 - 1-dose 75+ series) 2048 HIB Vaccines Aged Out No longer eligi [...] patient's age to complete this topic Meningococcal Vaccine Aged Out No morgan candelario eligible based on patient's age to complete this topic RSV under 20 months Aged Out No longe r eligible based on patient's age to complete this topic Rotavirus Vaccines Aged Out No longer eligible based on patient's age to complete this topic Procedures Procedure Name Priority Date/Time Associated Diagnosis Comments NO CHARGE PROCEDURE Routine 06/06/2024 1 :00 PM EST CASE PRESENTATION, DETAILED AND EXTENSIVE TREATMENT PLANNING Routine 06/05/2024 2:30 PM EST Full coverage crown needed for root canal-treated tooth BITEWING - SINGLE RADIOGRAPHIC IMAGE Routine 06/05/2024 2:30 PM EST Full coverage crown needed for root canal-treated tooth 29 CROWN - PORCELAIN/CERAMIC Routine 06/05/2024 2:30 PM EST Full coverage crown needed for root canal-treated tooth NO CHARGE PROCEDURE Routine 05/26/2024 1 :15 PM EST INTRAORAL - PERIAPICAL FIRST RADIOGRAPHIC IMAGE Routine 05/22/2024 1:30 PM EST Fractured dental anglican with loss of material Full coverage crown needed for root canal-treated tooth CASE PRESENTATION, DETAILED AND EXTENSIVE TREATMENT PLANNING Routine 05/22/2024 1:30 PM EST Fractured dental anglican with loss of material Full coverage crown needed for root canal-treated tooth 29 CROWN PREP Routine 05/22/2024 1:30 PM EST Fractured dental anglican with loss of material Full coverage crown needed for root canal-treated tooth 29 PREFABRICATED POST AND CORE IN ADDITION TO CROWN Routine 05/22/2024 1:30 PM EST Fractured dental anglican with loss of material Full coverage crown needed for root canal-treated tooth CASE PRESENTATION, DETAILED AND EXTENSIVE TREATMENT PLANNING Routine 04/21/2024 2:00 PM EST Symptomatic irreversible pulpitis 29 ENDODONTIC THERAPY, PREMOLAR TOOTH Routine 04/21/2024 2:00 PM EST Symptomatic irreversible pulpitis PROPHYLAXIS - ADULT Routine 12/12/2023 8 :00 AM EDT Dental plaque PERIODIC ORAL EVALUATION - ESTABLISHED PATIENT Routine 12/12/2023 8:00 AM EDT from Last 3 Months or Most Recently Relevant to Health Maintenance Insurance [facility] - HSN PARTIAL (MEDICAID)
== END 2024-06-27 14:32 | disposition home or self-care (01) ==
PROVIDERS: PCP Internal Medicine; Visit Provider Physician Assistant
DX: L60.8 Other nail disorders (principal)

== ENCOUNTER → 2024-06-27 13:30 | Outpatient (BNVA) | payer OTHER, SELFPAY | PROVIDERS: PCP Internal Medicine | DX: L60.8 Other nail disorders (principal) | CPT/HCPCS: 99212 ==

== ENCOUNTER 2024-07-07 15:40 | Outpatient (REF) | payer OTHER, SELFPAY ==
--- OUTSIDE RECORDS SUMMARY | 2024-07-07 18:26 | XMS_ITS | Encounter Summary ---
Author Organization [facility] Address [address] [place] [address] 7 [place] [address] Care Team Providers Care Boiler Control Technician Name Role Phone Unavailable Primary Care Provider Unavailabl e Encounter Details Date Type Department Care Team (Latest Contact Info) Description 10/14/2021 Abstract [facility] CONVERSIONS Dental, Provider, DDS Social History [...] Description 08/06/2024 11:00 AM EDT Office Visit [facility] ADULT DENTAL [address] [place] [address] Danna Doe [address] [place] [address] documented as of this encounter Visit Diagnoses Not on filedocumented in this encounter
--- OUTSIDE RECORDS SUMMARY | 2024-07-07 18:26 | XMS_ITS | Encounter Summary ---
Author Organization [facility] Address [address] [place] [address] [address]t [place] [address] Care Team Providers Care Lens Engraver Name Role Phone Unavailable Primary Care Provider Unavailabl e Reason for Visit * Reason Comments Dental Exam Follow up #29 food i s getting stuck Encounter Details Date Type Department Care Team (Late st Contact Info) Description 07/04/2024 11:00 AM EST Office Visit [facility] ADULT DENTAL [address] [place] [address] Vick Kay DDS [address] [place] [address] Social History Tobacco Use Types Packs/Day Years [...] Time: 1053 (Dental Follow up #29) Location: [facility] Tooth: #30 Procedure: Exam Verified the above with patient, travel assistant, and provider. Confirmed via patient's chart, intraorally and by radiographs. Juke Box Mechanic: not applicable Chief Complaint Patient presents with [...] exhibited a large multi-surface amalgam and resin christian with recurrent caries at the margins. The contact between teeth #29 and #30 was light, offering minimal resistance to floss passage. It was recommended to replace the existing resin christian on tooth #30. The patient was also informed about the open contact between #28 and #29, which will need to be addressed in the future by restoring the distal surface of #28, as it shows signs of incipient decay. A bitewing radiograph revealed a mesial carious lesion on #28 extending into the KEIRA, necessitating an MOD resin christian. The patient is scheduled to return for [...] good condition. NV: Hygiene/ periodic exam/Maribel #28 Foundry Process Engineer: Josefina Moreno Dentist: Vick Kay DDS * Vick Kay DDS - 07/04/2024 11:00 AM EST Patient ID: Fred Vogt is a 49 y.o. male. Time Out: Timeout Date: 07/04/24, Timeout Time: 1053 (Dental Follow up #29) Location: [facility] Tooth: #30 Procedure: Episcopalian Verified the above with patient, travel assistant, and provider. Confirmed via patient's chart, intraorally and by radiographs. Juke Box Mechanic: not applicable Chief Complaint Patient presents with [...] cotton rolls Prep: All caries removed, Existing christian removed, and Preparation finalized Matrix: Tofflemire and wedge and Sectional Matrix and wedge Etch: 37% Phosphoric Acid Etch Desensitizer: Gluma Liner/Base: LimeLite Kulkarni: I-Kulkarni Episcopalian Material: Paradigm Composite Shade: A2 Polished. Occlusion [...] in the future. NV: Follow-up as needed. Foundry Process Engineer: Josefina Moreno Dentist: Vick Kay DDS documented in this encounter Plan of Treatment Upcoming Encounters Date Type Department Care Team (Late st Contact Info) Description 08/06/2024 11:00 AM EDT Office Visit [facility] ADULT DENTAL [address] [place] [address] Luis Carlos Doearis [address] [place] [address] Scheduled Orders Name Type Priority Associated Diagnoses [...]
--- OUTSIDE RECORDS SUMMARY | 2024-07-07 18:26 | XMS_ITS | Clinical Summary ---
Author Organization [facility] Address [address] [place] [address] Care Team Providers Care Washroom Operator Name Role Phone Unavailable Primary Care [...]
--- OUTSIDE RECORDS SUMMARY | 2024-07-07 18:26 | XMS_ITS | Encounter Summary ---
Author Organization [employer] [facility] Address [address] [place] [address] Care Team Providers Care Ultrasound Technol Name Role Phone Tammy Dietrich MD Primary Care Provider Un available [facility], Pcp Primary Care Provider Unavailabl e Reason for Visit * Reason Comments E-prescribe Rx Request Encounter Details Date Type Department Care Team Description 03/17/2018 Refill Adult Medicine [address] [id number] Manuela Page PA-C E-prescribe Rx Request Social History Tobacco Use Types Packs/Day Years Used Date Smoking Tobacco: Former Smokeless Tobacco: Never Comments:quit 8-9 years ago Alcohol Use Standard Drinks/Week Comments No 0 (1 standard drink = 0.6 oz pur e alcohol) Sex Assigned at Date Recorded Not on file documented as of this encounter Miscellaneous Notes * Telephone Encounter - Alicja Allen - 03/18/2018 3:46 PM EST Patient would like script to be: E-PRESCRIBED/FAXED TO PHARMACY WHEN WAS THE PATIENT'S LAST APPOINTMENT IN ADULT MEDICINE? 02/06/18 WHEN WAS THE LAST TIME THE PATIENT SAW THEIR PCP? 10/19/17 Does patient have an upcoming appointment? Per pcp last office visit notes patient not due until October 2018 (THE MEDICATION REQUESTED IS ON THE MED LIST ABOVE) All of the medications requested were on the CURRENT MEDS list Did you check the Pharmacy information above?: YES Patient wants: 30 -day supply Is this a mail order prescription request ? NO If the refill is from a FAXED refill request what is the RX # listed on the fax? N/A Patients current insurance carrier is: Payor: [employer] / Plan: [facility]PO [id number] / Product Type: POS [id number] documented in this encounter Plan of Treatment Not on file documented as of this encounter Visit Diagnoses Not on filedocumented in this encounter Care Teams Ultrasound Technol Relationship Specialty Start Date End Date Tammy Dietrich MD PCP - General Internal Medicine 10/20/16 [facility], Pcp PCP - General Internal Medicine 09/24/18 documented as of this encounter
--- OUTSIDE RECORDS SUMMARY | 2024-07-07 18:26 | XMS_ITS | Encounter Summary ---
Author Organization [facility] Address [address] [place] [address] Care Team Providers Care Magazine Publisher Name Role Phone Tammy Dietrich MD Primary Care Provider Un available [facility], Pcp Primary Care Provider Unavailabl e Reason for Visit * Reason Onset Date Comments er follow up 10/02/2017 [facility] Encounter Details Date Type Department Care Team Description 10/02/2017 Telephone Adult Medicine [address] [phone] Tammy Dietrich MD er follow up ([facility] ) Social History Tobacco Use Types Packs/Day Years Used Date Smoking Tobacco: Former Smokeless Tobacco: Never Alcohol Use Standard Drinks/Week Comments No 0 (1 standard drink = 0.6 oz pur e alcohol) Sex Assigned at Date Recorded Not on file documented as of this encounter Miscellaneous Notes * Telephone Encounter - Iqra Johnson - 10/02/2017 12:23 PM EDT ER follow-up appointment booked YES TODAY If ER follow up, can be booked with mid-level or MD. If hospital admission follow up MUST be booked with a physician Appointment time: 2:45 PM Provider visit is scheduled with: Tammy Dietrich Hospital patient was treated at: [facility] Date of visit: 09/30/17 Was this only an ER visit or was the patient admitted to the hospital? ER visit onlyER visit only If patient was admitted what was the date of discharge? N/A Reason/diagnosis for visit or stay: gastroenteritis, acute hematuria Was visit or stay related to an injury? NO If yes, what was the date of injury (DOI)? N/A If yes, was the injury due to N/A Tests performed: Lab: YES X-ray: YES EKG: YES Other tests. If yes, what?; N/A documented in this encounter Plan of Treatment Not on file documented as of this encounter Visit Diagnoses Not on filedocumented in this encounter Care Teams Magazine Publisher Relationship Specialty Start Date End Date Tammy Dietrich MD PCP - General Internal Medicine 10/20/16 [facility], [facility] PCP - General Internal Medicine 09/24/18 documented as of this encounter
--- OUTSIDE RECORDS SUMMARY | 2024-07-07 18:26 | XMS_ITS | Encounter Summary ---
Author Organization [facility] Address [address] [place] [address] Care Team Providers Care Social Services Technician Name Role Phone Tammy Dietrich MD Primary Care Provider Un available [facility], Pcp Primary Care Provider Unavailabl e Reason for Visit * Reason Comments E-prescribe Rx Request Encounter Details Date Type Department Care Team Description 07/10/2018 Refill Adult Medicine [facility] [address] [place], [place] [phone] [facility] [address] [place], [place] [phone] E-prescribe Rx Request Social History Tobacco Use Types Packs/Day Years Used Date Smoking Tobacco: Former Smokeless Tobacco: Never Comments:quit 8-9 years ago Alcohol Use Standard Drinks/Week Comments No 0 (1 standard drink = 0.6 oz pur e alcohol) Sex Assigned at Date Recorded Not on file documented as of this encounter Miscellaneous Notes * Telephone Encounter - Precious Hogan - 07/10/2018 12:45 PM EST Patient would like script to be: E-PRESCRIBED/FAXED TO PHARMACY WHEN WAS THE PATIENT'S LAST APPOINTMENT IN ADULT MEDICINE? 05/10/18 WHEN WAS THE LAST TIME THE PATIENT SAW THEIR PCP? Same as above Does patient have an upcoming appointment? Yes 07/24/18 (THE MEDICATION REQUESTED IS ON THE MED LIST ABOVE) All of the medications requested were on the CURRENT MEDS list Did you check the Pharmacy information above?: YES Patient wants: 90 -day supply Is this a mail order prescription request ? NO If the refill is from a FAXED refill request what is the RX # listed on the fax? N/A Patients current insurance carrier is: Payor: MARIKA / Plan: PPO $20 [employer] [id number] / Product Type: POS [id number] documented in this encounter Plan of Treatment Not on file documented as of this encounter Visit Diagnoses Not on filedocumented in this encounter Care Teams Social Services Technician Relationship Specialty Start Date End Date Tammy Dietrich MD PCP - General Internal Medicine 10/20/16 [facility] PCP - General Internal Medicine 09/24/18 documented as of this encounter
--- OUTSIDE RECORDS SUMMARY | 2024-07-07 18:26 | XMS_ITS | Encounter Summary ---
Author Organization [employer] [facility] Address [address] [place] [address] 7 [place] [address] Care Team Providers Care Recreational Programs Director Name Role Phone Unavailable Primary Care Provider Unavailabl e Encounter Details Date Type Department Care Team (Latest Contact Info) Description 07/22/2020 Abstract [facility] CONVERSIONS Dental, Provider, DDS Social History Tobacco [...] Description 08/06/2024 11:00 AM EDT Office Visit [facility] ADULT DENTAL [address] [place] [address] Danna Doe [address] [place] [address] documented as of this encounter Visit Diagnoses Not on filedocumented in this encounter
--- OUTSIDE RECORDS SUMMARY | 2024-07-07 18:26 | XMS_ITS | Encounter Summary ---
Author Organization [facility] [email or web address] [facility] Address [address] [place] [address] Care Team Providers Care Associate Engineer Name Role Phone Tammy Dietrich MD Primary Care Provider Un available Community, Pcp Primary Care Provider Unavailabl e Encounter Details Date Type Department Care Team Description 05/17/2018 [facility] Medical Records [address] [place] [address] Abstract, Provider Social History Tobacco Use Types Packs/Day Years Used Date Smoking Tobacco: Former Smokeless Tobacco: Never Comments:quit 8-9 years ago Alcohol Use Standard Drinks/Week Comments No 0 (1 standard drink = 0.6 oz pur e alcohol) Sex Assigned at Date Recorded Not on file documented as of this encounter Plan of Treatment Not on file documented as of this encounter Visit Diagnoses Not on filedocumented in this encounter Care Teams Associate Engineer Relationship Specialty Start Date End Date Tammy Dietrich MD PCP - General Internal Medicine 10/20/16 Community, Pcp PCP - General Internal Medicine 09/24/18 documented as of this encounter
--- OUTSIDE RECORDS SUMMARY | 2024-07-07 18:26 | XMS_ITS | Encounter Summary ---
Author Organization [facility] [email or web address] [facility] Address [address] [place] [address] Care Team Providers Care Rotary Drum Dyer Name Role Phone Tammy Dietrich MD Primary Care Provider Un available Community, Pcp Primary Care Provider Unavailabl e Reason for Visit * Reason Onset Date Comments REFERRAL 12/06/2016 Encounter Details Date Type Department Care Team Description 12/06/2016 Telephone Physiatry - [place] [address] [place] [address] [id number] Te Bright DO REFERRAL Social History Tobacco Use Types Packs/Day Years Used Date Smoking Tobacco: Former Alcohol Use Standard Drinks/Week Comments No 0 (1 standard drink = 0.6 oz pur e alcohol) Sex Assigned at Date Recorded Not on file documented as of this encounter Miscellaneous Notes * Telephone Encounter - Josh Serna - 12/06/2016 9:22 AM EDT Patient was referred to Physiatry for chronic back pain. Tried to contact patient several times by phone to schedule an appointment and sent out letter with no response. Patient will be taken off of referrals report. FYI documented in this encounter Plan of Treatment Not on file documented as of this encounter Visit Diagnoses Not on filedocumented in this encounter Care Teams Rotary Drum Dyer Relationship Specialty Start Date End Date Tammy Dietrich MD PCP - General Internal Medicine 10/20/16 Community, Pcp PCP - General Internal Medicine 09/24/18 documented as of this encounter
--- OUTSIDE RECORDS SUMMARY | 2024-07-07 18:26 | XMS_ITS | Encounter Summary ---
Author Organization [facility] Address [address] [place] [address] Care Team Providers Care Label Machine Operator Name Role Phone Tammy Dietrich MD Primary Care Provider Un available Community, Pcp Primary Care Provider Unavailabl e Reason for Visit * Reason Onset Date Comments Prior Authorization 10/22/2017 Encounter Details Date Type Department Care Team Description 10/22/2017 Telephone Adult [address] [address] Tammy Dietrich MD Prior Authorization Social History Tobacco Use Types Packs/Day Years Used Date Smoking Tobacco: Former Smokeless Tobacco: Never Comments:quit 8-9 years ago Alcohol Use Standard Drinks/Week Comments No 0 (1 standard drink = 0.6 oz pur e alcohol) Sex Assigned at Date Recorded Not on file documented as of this encounter Miscellaneous Notes * Telephone Encounter - Ana Smith M.A. - 11/08/2017 2:16 PM EDT Spoke with Drake from [facility] who states that this was denied because pt does not have a dx of pulmonary hypertention. * Telephone Encounter - Valentina Suarez M.A. - 10/29/2017 9:55 AM EDT Started by phone with rubio for sildenafil, went to review Dx erectile dysfunction N52.9 * Telephone Encounter - Xiomy Daniel - 10/22/2017 9:41 AM EDT Pre Authorization for Medication-do not complete and send this encounter unless you have the fax from the pharmacy. Is this a Cover My Meds request: Yes -- Hodges Code [id number] Name of Medication sildenafil (REVATIO) 20 MG tablet Dose of Medication 20 MG How does patient take this med? Take 1 Tab by mouth as needed for Erectile Dysfunction. - Oral What Pharmacy did the fax come from: [facility] Pharmacy fax #: [phone] [employer] Party Information from fax: What Prescription Plan does the patient have? BIN/PCN if applicable: Cardholder ID: Person Code: Relationship Code: Help desk phone: documented in this encounter Plan of Treatment Not on file documented as of this encounter Visit Diagnoses Not on filedocumented in this encounter Care Teams Label Machine Operator Relationship Specialty Start Date End Date Tammy Dietrich MD PCP - General Internal Medicine 10/20/16 [facility], Pcp PCP - General Internal Medicine 09/24/18 documented as of this encounter
--- OUTSIDE RECORDS SUMMARY | 2024-07-07 18:26 | XMS_ITS | Clinical Summary ---
Author Organization [employer] Address [address] [facility] 7t [place] [address] Care Team Providers Care Winch Derrick Operator Name Role Phone Unavailable Primary Care [...] exam 01/23/2024 Dental plaque 12/12/2023 Fractured dental anabaptism with loss of materi al 02/05/2023 Dental calculus 06/28/2022 Encounters Date Type Department Care Team Description 07/04/2024 11:00 AM EST Office Visit [facility] ADULT DENTAL [address] [place] [address] Vick Kay, DDS 06/06/2024 1:00 PM EST Office Visit [facility] ADULT [facility]AL [address] [facility] [place] [address] Bueno-Jimenes, Mari, DDS 06/05/2024 2:30 PM EST Office Visit [facility] ADULT DENTAL [address] [facility] [place] [address] Bueno-Jimenes, Mari, DDS Full coverage crown needed for root canal-treated tooth (Primary Dx) 05/26/2024 1:15 PM EST Office Visit [facility] ADULT DENTAL [address] [facility] [place] [address] Bueno-Jimenes, Mari, DDS 05/22/2024 1:30 PM EST Office Visit [facility] ADULT DENTAL [address] [facility] [place] [address] Bueno-Jimenes, Mari, DDS Fractured dental anabaptism with loss of material (Primary Dx); Full coverage crown needed for root canal-treated tooth 04/21/2024 2:00 PM EST Office Visit [facility] ADULT DENTAL [address] [facility] [place] [address] Bueno-Jimenes, Mari, DDS Symptomatic irreversible pulpitis (Primary [...] EDT Office Visit [facility] ADULT DENTAL [address] [place] [address] Danna Doe [address] [place] [address] Health Maintenance Due Date Last Done Comments [...] Routine 05/22/2024 1:30 PM EST Fractured dental anabaptism with loss of material Full coverage crown needed for root canal-treated tooth CASE PRESENTATION, DETAILED AND EXTENSIVE TREATMENT PLANNING Routine 05/22/2024 1:30 PM EST Fractured dental anabaptism with loss of material Full coverage crown needed for root canal-treated tooth 29 CROWN PREP Routine 05/22/2024 1:30 PM EST Fractured dental anabaptism with loss of material Full coverage crown needed for root canal-treated tooth 29 PREFABRICATED POST AND CORE IN ADDITION TO CROWN Routine 05/22/2024 1:30 PM EST Fractured dental anabaptism with loss of material Full coverage crown [...] Most Recently Relevant to Health Maintenance Insurance [facility] DENTAL - HSN PARTIAL (MEDICAID)
--- OUTSIDE RECORDS SUMMARY | 2024-07-07 18:26 | XMS_ITS | Clinical Summary ---
Author Organization [facility] Address [address] [place] [address] Care Team Providers Care Public Health Specialist Name Role Phone Community, Pcp Primary Care Provider Unavailabl e Allergies No known active allergies Medications Medication Sig Dispensed Refills Start Date End Date Status sildenafil (REVATIO) 20 MG tablet Take 1 Tab by mouth as needed for Erectile Dysfunction. 10 Tab 0 10/19/2017 Active clotrimazole-betameth asone (LOTRISONE) cream Apply to affected skin twice a day 30 g 0 05/10/2018 Active GRALISE 600 MG Tab TAKE 1 TABLET BY MOUTH TWICE A DAY 180 Tab 1 05/30/2018 Active pantoprazole (PROTONIX) 40 MG tablet TAKE 1 TABLET BY MOUTH EVERY DAY 30 Tab 3 07/11/2018 Active nabumetone (RELAFEN) 750 MG tablet Take 1 Tab by mouth 2 times daily. 60 Tab 1 07/24/2018 Active cyclobenzaprine (FLEXERIL) 10 MG tablet Take 1 Tab by mouth 2 times daily as needed for Muscle spasms for up to 10 days. 60 Tab 0 07/24/2018 Active ergocalciferol (ERGOCALCIFEROL) 19725 UNITS capsule Take 1 Cap by mouth once a week. 4 Cap 2 07/25/2018 Active Active Problems Problem Noted Date Left inguinal hernia 06/12/2018 Chronic back pain 10/20/2017 GERD (gastroesophageal reflux disease) 0 10/26/2016 Vitamin D deficiency 10/26/2016 Family History Medical History Relation Name Comments Cancer of the Pancreas Maternal Grandmother Hypertension Mother Relation Name Status Comments Daughter Alive Maternal Grandmother Mother Alive Son Alive Social History Tobacco Use Types Packs/Day Years Used Date Smoking Tobacco: Former Smokeless Tobacco: Never Comments:quit 8-9 years ago Alcohol Use Standard Drinks/Week Comments No 0 (1 standard drink = 0.6 oz pur e alcohol) Sex Assigned at Date Recorded Not on file Last Filed Vital Signs Vital Sign Reading Time Taken Comments Blood Pressure 138/78 07/24/2018 2:41 PM EDT Pulse 70 07/24/2018 2:41 PM EDT Temperature 37 ??C (98.6 ??F) 07/24/2018 2:41 PM EDT Respiratory Rate 16 07/24/2018 2:41 PM EDT Oxygen Saturation - - Inhaled Oxygen Concentration - - Weight 83.8 kg (184 lb 11.2 oz) 07/24/2018 2:41 PM EDT Height 180.3 cm (5' 11 ) 07/24/2018 2:41 PM EDT Body Mass Index 25.76 07/24/2018 2:41 PM EDT Plan of Treatment Health Maintenance Due Date Last Done Comments Covid-19 Vaccine (#1) 1973 BASELINE HEALTH EXAM 40-64 10/22/2019 10/21/2017, CHOLESTEROL SCREENING 10/21/2022 10/21/2017 , 07/04/2014 (External Completion) COLON CANCER SCREENING 2023 SHINGLES VACCINE (1 of 2) 2023 INFLUENZA (#1) 2024 BMI CHECK/ADVISE 05/14/2024 DTAP/TDAP/TD (2 - Td or Tdap) 03/06/2026 03/06/2016 (Refused) PNEUMOCOCCAL VACCINE FOR HIG H RISK PATIENTS (#1) 2038 Care Teams Public Health Specialist Relationship Specialty Start Date End Date Community, Pcp PCP - General Internal Medicine 09/24/18
== END 2024-07-07 15:41 | disposition home or self-care (01) ==
LOC: HO.LAB 15:40
PROVIDERS: PCP Internal Medicine; Visit Provider Internal Medicine
DX: B35.1 Tinea unguium (principal); L60.8 Other nail disorders; K21.00 Gastro-esophageal reflux disease with esophagitis, without bleeding; M47.816 Spondylosis without myelopathy or radiculopathy, lumbar region
CPT/HCPCS: 90471; 99212

== ENCOUNTER 2024-07-07 15:40 | Outpatient (AMB) | payer OTHER, SELFPAY ==
--- NOTE | 2024-07-07 15:43 | A.OFFPC_ITS ---
Vital Signs 07/07/24 15:44 Height 6 ft Weight 189 lb BMI 25.6 BP 126/80 Blood Pressure Location Lt brachial Position Sitting Intake Visit Reasons: toenail and fingernails are turning purple Senior Applications Analyst Required: Yes Senior Applications Analyst Language: Critical Care Clinical Nurse Specialist Name: Vanita Garrison MD Information Interpreted: non-clinical & clinical Accompanied by: Self / Same As Patient Allergies No Known Allergies [No Known Allergies*] Allergy (Verified 07/07/24 16:05) Medication List - Last Reconciled 07/07/24 by Vanita Garrison MD cetirizine (Zyrtec) 10 mg PO DAILY PRN escitalopram oxalate 10 mg PO DAILY fenofibrate nanocrystallized 145 mg PO DAILY 90 days pantoprazole 40 mg PO BID polyethylene glycol 3350 (Miralax) 17 grams PO DAILY pregabalin 100 mg PO BID 30 days sucralfate (Carafate) 1 g PO DAILY 30 days tramadol 50 mg PO BID PRN 30 days Tobacco use date assessed: 05/21/24 Dental Screening Dental Screen Date: 05/21/24 HPI HPI Comments History of Present Illness Details This is a 49-year-old male with GERD and lumbar spondylosis that comes today complaining of onychomycosis of his right 1st toenail with some dark pigmentation at the base of the nail. He also has his fingernails of both thumbs darker in the base most likely due to transverse melanonychia and will be refer to dermatology for evaluation. GERD is follow by Gastroenterology and has been somewhat stable with PPIs. On tramadol for lumbar spondylosis which controls the back pain. No chest pain or shortness on breath. [facility] Medical History (Updated 07/07/24 @ 16:11 by Vanita Garrison MD) Physical exam Changes in vision Hypertriglyceridemia Overweight (BMI 25.0-29.9) GERD (gastroesophageal reflux disease) Spondylosis of lumbar spine Rash COVID-19 Myofascial pain syndrome of thoracic spine Myofascial pain syndrome Surgical History History of appendectomy Family History Mother Arthritis Hypertension Father No problems noted. 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 Current occupational exposures/hazards: No Cognitive needs: No Hearing needs: No Vision needs: No Questionnaire Thrive Questionnaire Date Thrive assessed: 05/21/24 I am a: Patient What is your living situation today?: I have a steady place to live Within the past 12 months, did the food you bought not last and you didn't have the money to get more?: I choose not to answer this question Within the past 12 months, did you worry whether your food would run out before you got money to buy more?: I choose not to answer this question Do you have trouble paying for medicines?: No Do you have trouble getting transportation to medical appointments?: No Do you have trouble paying your heating and electricity bill?: No Do you have trouble taking care of your child, family member or friend?: No Do you have trouble with day-to-day activities such as bathing, preparing meals, shopping, managing finances, etc.?: No Are you currently unemployed and looking for a job?: No Are you interested in more education?: I choose not to answer this question Please select the resources that you would like help with: Job search/training Currently or been in a relationship where the following occur: No concerns reported THRIVE Score: 0 JESSICA-7 AMB Questionnaire JESSICA-7 Date JESSICA - 7 assessed: 05/21/24 Source: Developed by Drs. Dejuan Amador, Leta aClderon, Dieter Sarah and colleagues, with an educational abhay from [email or web address]. Review of Systems Const All systems reviewed & are unremarkable except as noted in HPI and below Card Denies chest pain at rest, Denies chest pain with activity, Denies edema, Denies irregular heart rhythm, Denies claudication, Denies dyspnea, Denies dyspnea on exertion, Denies orthopnea, Denies paroxysmal nocturnal dyspnea and Denies slow heart rate Resp Denies cough, Denies dyspnea and Denies dyspnea on exertion GI Denies abdominal pain, Denies change in bowel habits, Denies excessive flatus, Denies nausea and Denies vomiting Denies urinary hesitancy, Denies urinary incontinence and Denies urinary urgency Musc Denies atrophy, Denies deformity and Denies limited range of motion Skin/Breast Reports nail changes Physical exam (Primary Care) Vital Signs: Last Vital Signs BP 126/80 07/07/24 15:44 BMI result Body Mass Index 25.6 Tobacco/Smoking Status: Tobacco use Status Tobacco use date assessed 05/21/24 07/07/24 15:44 Patient Tobacco Use Status Never used Tobacco 07/07/24 15:44 Tobacco use type 07/07/24 15:47 e-Cigarette/Vaping Use Never Used 07/07/24 15:44 Thrive Assessment: Date of Thrive Assessment Date Thrive assessed 05/21/24 07/07/24 15:44 Currently or been in a relationship where the following occur: No concerns reported Resp Effort & Inspection: normal respiratory effort Auscultation: clear to auscultation bilaterally Cardio Jugular venous distension: no JVD Rate: regular rate Rhythm: regular rhythm Heart sounds: S1 normal heart sound present and S2 normal heart sound present Skin Nails: discolored and yellow and thickened Extrem General: Yes full ROM Office Procedures Flu Questionnaire Does the patient have a severe egg allergy?: No Immunizations Fluarix Triv [id number] (PF) 45 mcg (15 mcg x 3)/0.5 mL IM syringe Performing Provider: Vanita Garrison MD [facility] Documented (not given) by: HEAVEN Rios on 07/07/24 16:18 Reason Not Given: Patient Refused Coding Level of Care Code Est Pt Level 4 (56104) Complex EM visit Add On G2211 Diagnoses Onychomycosis B35.1 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 Do liver panel before starting terbinafine. (2) Transverse melanonychia: Code(s): L60.8 - Other nail disorders Category: Medical Plan: Referred to dermatology. (3) GERD (gastroesophageal reflux disease): Code(s): K21.9 - Gastro-esophageal reflux disease without esophagitis Category: Medical Qualifiers: Esophagitis presence: with esophagitis Esophagitis bleeding: without hemorrhage Qualified Code(s): K21.00 - Gastro-esophageal reflux disease with esophagitis, without bleeding Plan: Continue PPIs. Follow-up with Gastroenterology. (4) Spondylosis of lumbar spine: Code(s): M47.816 - Spondylosis without myelopathy or radiculopathy, lumbar region Category: Medical Plan: Continue tramadol. Orders: Orders Influenza [id number] Immunization Today Z23 - Encounter for immunization Liver Panel Today B35.1 - Tinea unguium Referrals Dermatology Referral L60.8 - Other nail disorders Medications: New terbinafine HCl 250 mg PO DAILY 90 tabs 0RF 90 days
[2024-07-07 15:44] VITALS: BP 126/80; BMI 25.6
--- OUTSIDE RECORDS SUMMARY | 2024-07-07 17:56 | XMS_ITS | Encounter Summary ---
Author Organization [facility] Address [address] [place] [address] 7t [place] [address] Care Team Providers Care Barrel Reamer Name Role Phone Unavailable Primary Care Provider Unavailabl e Reason for Visit * Reason Comments Dental Exam Follow up #29 food i s getting stuck Encounter Details Date Type Department Care Team (Late st Contact Info) Description 07/04/2024 11:00 AM EST Office Visit [facility] ADULT DENTAL [address] [place] [address] Vick Kay DDS [address] [place] [address] Social History Tobacco Use Types Packs/Day Years [...] as of this encounter Progress Notes * Vick Kay DDS - 07/04/2024 11:00 AM EST Dental procedures in this visit D2394 - RESIN-BASED COMPOSITE - 4+ SURF, POSTERIOR 30 MODB (Completed) Service provider: Vick Kay DDS Billing provider: Vick Kay DDS D0140 - LIMITED ORAL EVALUATION - PROBLEM FOCUSED (Completed) Service provider: Vick Kay DDS Billing provider: Vick Kay DDS D0270 - BITEWING - SINGLE RADIOGRAPHIC IMAGE (Completed) Service provider: Vick Kay DDS Billing provider: Vick Kay DDS Patient ID: Fred Vogt is a 49 y.o. male. Time Out: Timeout Date: 07/04/24, Timeout Time: 1053 (Dental Follow up #29) Location: [facility] Tooth: #30 Procedure: Exam Verified the above with patient, assistant production manager, and provider. Confirmed via patient's chart, intraorally and by radiographs. Supervisor Grips: not applicable Chief Complaint Patient presents with Dental Exam Follow up #29 food is getting stuck Medical Hx: Vitals: There were no vitals taken for this visit. Past Medical History: Diagnosis Date Back pain GERD (gastroesophageal reflux disease) High cholesterol Medications: Outpatient Encounter Medications as of 07/04/2024 Medication Sig Dispense Refill escitalopram (Lexapro) 10 MG tablet Take 5 mg by mouth Once per day. famotidine (Pepcid) 40 MG tablet Take 40 mg by mouth at bedtime. fenofibrate (Tricor) 145 MG tablet Take 145 mg by mouth in the morning. naproxen (Naprosyn) 125 MG/5ML suspension TAKE 10-20ML BY MOUTH TWICE DAILY NEEDED FOR PAIN omeprazole OTC (PriLOSEC OTC) 20 MG EC tablet Take 2 tablets by mouth. pantoprazole (ProtoNix) 40 MG EC tablet Take 40 mg by mouth Once per day. pregabalin (Lyrica) 100 MG capsule TAKE 1 CAPSULE ORALLY 2 TIMES A DAY FOR 30 DAYS sucralfate (Carafate) 1 g tablet Take 1 g by mouth before breakfast and before evening meal. traMADol (Ultram) 50 MG tablet TAKE ONE TABLET BY MOUTH TWICE A DAY NEEDED FOR PAIN FOR 30 DAYS No facility-administered encounter medications on file as of 07/04/2024. Subjective: Pain: No pain; patient presented with a complaint that he is experiencing food lodgment in lower right posterior region. Duration: >5 days Objective: Tooth: #28, #29, and #30 Radiographs Taken: BW(s) Radiographic Findings: Decay Clinical Findings: During the clinical examination following the history of the crown seat on tooth#29, an open contact was observed between teeth #28 and #29. Additionally, tooth #30 exhibited a large multi-surface amalgam and resin amish with recurrent caries at the margins. The contact between teeth #29 and #30 was light, offering minimal resistance to floss passage. It was recommended to replace the existing resin amish on tooth #30. The patient was also informed about the open contact between #28 and #29, which will need to be addressed in the future by restoring the distal surface of #28, as it shows signs of incipient decay. A bitewing radiograph revealed a mesial carious lesion on #28 extending into the KEIRA, necessitating an MOD resin amish. The patient is scheduled to return for a periodic exam and hygiene visit. Swelling: No swelling Endo Testing: Cold testing elicited hypersensitive response in #30; but it was not lingering. Perio: N/A Other Findings: N/A Diagnosis: Reversible pulpitis Assessment/Plan: Patient was advised to contact our office if he is experiencing any discomfort. Pt tolerated procedure well, all questions answered. Dismissed in good condition. NV: Hygiene/ periodic exam/Maribel #28 Senior Visual Designer: Josefina Moreno Dentist: Vick Kay DDS * Vick Kay DDS - 07/04/2024 11:00 AM EST Patient ID: Fred Vogt is a 49 y.o. male. Time Out: Timeout Date: 07/04/24, Timeout Time: 1053 (Dental Follow up #29) Location: [facility] Tooth: #30 Procedure: Advent Verified the above with patient, assistant production manager, and provider. Confirmed via patient's chart, intraorally and by radiographs. Supervisor Grips: not applicable Chief Complaint Patient presents with Dental Exam Follow up #29 food is getting stuck Medical Hx: Vitals: There were no vitals taken for this visit. Medications, Med Hx reviewed with patient and updated in chart. Consent Obtained: The risks, benefits, indications, potential complications, and alternatives were explained to the patient and informed consent was obtained with good understanding. Treatment Provided: Dental procedures in this visit D2394 - RESIN-BASED COMPOSITE - 4+ SURF, POSTERIOR 30 MODB (Completed) Service provider: Vick Kay DDS Billing provider: Vick Kay DDS D0140 - LIMITED ORAL EVALUATION - PROBLEM FOCUSED (Completed) Service provider: Vick Kay DDS Billing provider: Vick Kay DDS D0270 - BITEWING - SINGLE RADIOGRAPHIC IMAGE (Completed) Service provider: Vick Kay DDS Billing provider: Vick Kay DDS Diagnosis: Reversible pulpitis Topical: 20% Benzocaine Anesthesia: 2% Lidocaine (Xylocaine) w/ 1:100,000 epinephrine Number of Cartridges: 2 Injection Type: Inferior alveolar nerve block and Long buccal nerve block Confirmed profound anesthesia. Isolation: high speed suction and cotton rolls Prep: All caries removed, Existing amish removed, and Preparation finalized Matrix: Tofflemire and wedge and Sectional Matrix and wedge Etch: 37% Phosphoric Acid Etch Desensitizer: Gluma Liner/Base: LimeLite Kulkarni: I-Kulkarni Advent Material: Paradigm Composite Shade: A2 Polished. Occlusion & contacts verified. Patient satisfied with comfort and esthetics. Patient tolerated procedure well. Post-operative instructions were given. Patient departed alert, oriented, and in stable condition. Due to the extent of the involvement in multiple dimensions--occluso-apically, bucco-lingually, andmesio-distally--the patient was informed that tooth #30 might experience sensitivity for more than 2-3 weeks. Additionally, there is a possibility that root canal treatment and a crown may be required in the future. NV: Follow-up as needed. Senior Visual Designer: Josefina Moreno Dentist: Vick Kay DDS documented in this encounter Plan of Treatment Upcoming Encounters Date Type Department Care Team (Late st Contact Info) Description 08/06/2024 11:00 AM EDT Office Visit [facility] ADULT DENTAL [address] [place] [address] Luis Carlos Doearis [address] [place] [address] Scheduled Orders Name Type Priority Associated Diagnoses Orde r Schedule 28 MOD 28 MOD RESIN-BASED COMPOSITE - 3 SURF, POSTERIOR Dental Routine 1 Occurrences starting 07/04/2024 documented as of this encounter Procedures Procedure Name Priority Date/Time Associated Diagnosis Comments 30 MODB RESIN-BASED COMPOSITE - 4+ SURF, POSTERIOR Routine 07/04/2024 11:00 AM EST LIMITED ORAL EVALUATION - PROBLEM FOCUSED Routine 07/04/2024 11:00 AM EST BITEWING - SINGLE RADIOGRAPHIC IMAGE Routine 07/04/2024 11:00 AM EST documented in this encounter Visit Diagnoses Not on filedocumented in this encounter
--- OUTSIDE RECORDS SUMMARY | 2024-07-07 17:56 | XMS_ITS | Encounter Summary ---
Author Organization [facility] Address [address] [place] [address] 7 [place] [address] Care Team Providers Care Condenser Operator Name Role Phone Unavailable Primary Care Provider Unavailabl e Encounter Details Date Type Department Care Team (Latest Contact Info) Description 10/14/2021 Abstract [facility] CONVERSIONS Dental, Provider, DDS Social History [...] Description 08/06/2024 11:00 AM EDT Office Visit [facility] ADULT DENTAL [address] [place] [address] Danna Doe [address] [place] [address] documented as of this encounter Visit Diagnoses Not on filedocumented in this encounter
--- OUTSIDE RECORDS SUMMARY | 2024-07-07 17:56 | XMS_ITS | Encounter Summary ---
Author Organization [facility] Address [address] [place] [address] 7 [place] [address] Care Team Providers Care Cat Scanner Operator Name Role Phone Unavailable Primary Care Provider Unavailabl e Encounter Details Date Type Department Care Team (Latest Contact Info) Description 07/22/2020 Abstract [facility] CONVERSIONS Dental, Provider, [...] Description 08/06/2024 11:00 AM EDT Office Visit [facility] ADULT DENTAL [address] [place] [address] Danna Doe [address] [place] [address] documented as of this encounter Visit Diagnoses Not on filedocumented in this encounter
--- OUTSIDE RECORDS SUMMARY | 2024-07-07 17:56 | XMS_ITS | Clinical Summary ---
Author Organization [employer] Address [address] [facility] 7t [place] [address] Care Team Providers Care Salesperson Toy Trains And Accessories Name Role Phone Unavailable Primary Care Provider [...] exam 01/23/2024 Dental plaque 12/12/2023 Fractured dental yazidism with loss of materi al 02/05/2023 Dental calculus 06/28/2022 Encounters Date Type Department Care Team Description 07/04/2024 11:00 AM EST Office Visit [facility] ADULT [facility]AL [address] [place] [address] Vick Kay, DDS 06/06/2024 1:00 PM EST Office Visit [facility] [address] [facility] [place] [address] Bueno-Jimenes, Mari, DDS 06/05/2024 2:30 PM EST Office Visit [facility] AD[facility] [address] [facility] [place] [address] Bueno-Jimenes, Mari, DDS Full coverage crown needed for root canal-treated tooth (Primary Dx) 05/26/2024 1:15 PM EST Office Visit [facility] [address] [facility] [place] [address] Bueno-Jimenes, Mari, DDS 05/22/2024 1:30 PM EST Office Visit [facility] ADULT [facility] [address] [facility] [place] [address] Bueno-Jimenes, Mari, DDS Fractured dental yazidism with loss of material (Primary Dx); Full coverage crown needed for root canal-treated tooth 04/21/2024 2:00 PM EST Office Visit [facility] ADULT [facility] [address] [facility] [place] [address] Bueno-Jimenes, Mari, DDS Symptomatic irreversible pulpitis (Primary [...] Description 08/06/2024 11:00 AM EDT Office Visit [facility] ADULT DENTAL [address] [place] [address] Danna Doe [address] [place] [address] Health Maintenance Due Date Last Done Comments [...] of 2) 2023 COVID-19 Vaccine ( - 2023- season) 2024 11/11/2021, 06/15/2021, 05/25/2021 Influenza Vaccine (#1) 2024 03/06/2016 Dental Oral Exam 06/14/2024 12/12/2023, , 10/14/2021 Dental Prophylaxis 06/14/2024 12/12/2023, 0 02/05/2023, 06/28/2022 Dental X-Ray: Full Mouth 10/15/2024 10/14/2021 Tobacco Screening 07/04/2025 07/04/2024 Dental X-Ray: Bitewings 07/05/2025 07/04/19, 06/05/2024, 12/12/2023, Additional history exists DTaP/Tdap/Td Vaccines (4 - Td or Tdap) 05/21/2034 05/21/2024, 03/26/2015, 02/28/2010 RSV [...] Procedure Name Priority Date/Time Associated Diagnosis Comments BITEWING - SINGLE RADIOGRAPHIC IMAGE Routine 07/04/2024 11:00 AM EST LIMITED ORAL EVALUATION - PROBLEM FOCUSED Routine 07/04/2024 11:00 AM EST 30 MODB RESIN-BASED COMPOSITE - 4+ SURF, POSTERIOR Routine 07/04/2024 11:00 AM EST NO CHARGE PROCEDURE Routine 06/06/2024 1 :00 [...] canal-treated tooth NO CHARGE PROCEDURE Routine 05/26/2024 1:15 PM EST INTRAORAL - PERIAPICAL FIRST RADIOGRAPHIC IMAGE Routine 05/22/2024 1:30 PM EST Fractured dental yazidism with loss of material Full coverage crown needed for root canal-treated tooth CASE PRESENTATION, DETAILED AND EXTENSIVE TREATMENT PLANNING Routine 05/22/2024 1:30 PM EST Fractured dental yazidism with loss of material Full coverage crown needed for root canal-treated tooth 29 CROWN PREP Routine 05/22/2024 1:30 PM EST Fractured dental yazidism with loss of material Full coverage crown needed for root canal-treated tooth 29 PREFABRICATED POST AND CORE IN ADDITION TO CROWN Routine 05/22/2024 1:30 PM EST Fractured dental yazidism with loss of material Full coverage crown [...] Most Recently Relevant to Health Maintenance Insurance [facility] DENTAL - HSN PARTIAL (MEDICAID)
--- OUTSIDE RECORDS SUMMARY | 2024-07-07 17:56 | XMS_ITS | Clinical Summary ---
Author Organization [facility] Address [address] [place] [address] Care Team Providers Care Burrer Operator Name Role Phone Unavailable Primary Care [...]
== END 2024-07-07 16:24 | disposition home or self-care (01) ==
PROVIDERS: PCP Internal Medicine; Visit Provider Internal Medicine
DX: B35.1 Tinea unguium (principal); L60.8 Other nail disorders; K21.00 Gastro-esophageal reflux disease with esophagitis, without bleeding; M47.816 Spondylosis without myelopathy or radiculopathy, lumbar region; Z23 Encounter for immunization

== ENCOUNTER 2024-07-09 09:40 | Outpatient (REF) | payer OTHER, SELFPAY ==
--- OUTSIDE RECORDS SUMMARY | 2024-07-09 11:09 | XMS_ITS | Encounter Summary ---
Author Organization [facility] Address [address] [place] [address] 7t [place] [address] Care Team Providers Care Adjunct Trainer Name Role Phone Unavailable Primary Care Provider Unavailabl e Reason for Visit * Reason Comments Dental Exam Follow up #29 food i s getting stuck Encounter Details Date Type Department Care Team (Late st Contact Info) Description 07/04/2024 11:00 AM EST Office Visit [facility] ADULT DENTAL [address] [place] [address] Vick Kay DDS [address] [place] [address] Social History Tobacco Use Types Packs/Day Years [...] Time: 1053 (Dental Follow up #29) Location: [facility] Tooth: #30 Procedure: Exam Verified the above with patient, psychiatric assistant, and provider. Confirmed via patient's chart, intraorally and by radiographs. Supervisor General: not applicable Chief Complaint Patient presents with [...] exhibited a large multi-surface amalgam and resin catholic with recurrent caries at the margins. The contact between teeth #29 and #30 was light, offering minimal resistance to floss passage. It was recommended to replace the existing resin catholic on tooth #30. The patient was also informed about the open contact between #28 and #29, which will need to be addressed in the future by restoring the distal surface of #28, as it shows signs of incipient decay. A bitewing radiograph revealed a mesial carious lesion on #28 extending into the KEIRA, necessitating an MOD resin catholic. The patient is scheduled to return for [...] good condition. NV: Hygiene/ periodic exam/Maribel #28 Sourcing Consultant: Josefina Moreno Dentist: Vick Kay DDS * Vick Kay DDS - 07/04/2024 11:00 AM EST Patient ID: Fred Vogt is a 49 y.o. male. Time Out: Timeout Date: 07/04/24, Timeout Time: 1053 (Dental Follow up #29) Location: [facility] Tooth: #30 Procedure: Mormonism Verified the above with patient, psychiatric assistant, and provider. Confirmed via patient's chart, intraorally and by radiographs. Supervisor General: not applicable Chief Complaint Patient presents with [...] cotton rolls Prep: All caries removed, Existing catholic removed, and Preparation finalized Matrix: Tofflemire and wedge and Sectional Matrix and wedge Etch: 37% Phosphoric Acid Etch Desensitizer: Gluma Liner/Base: LimeLite Kulkarni: I-Kulkarni Mormonism Material: Paradigm Composite Shade: A2 Polished. Occlusion [...] in the future. NV: Follow-up as needed. Sourcing Consultant: Josefina Moreno Dentist: Vick Kay DDS documented in this encounter Plan of Treatment Upcoming Encounters Date Type Department Care Team (Late st Contact Info) Description 08/06/2024 11:00 AM EDT Office Visit [facility] ADULT DENTAL [address] [place] [address] Luis Carlos Doearis [address] [place] [address] Scheduled Orders Name Type Priority Associated Diagnoses [...]
--- OUTSIDE RECORDS SUMMARY | 2024-07-09 11:09 | XMS_ITS | Encounter Summary ---
Author Organization [employer] [facility] Address [address] [place] [address] 7 [place] [address] Care Team Providers Care Electrical Prospecting Operator Name Role Phone Unavailable Primary Care Provider Unavailabl e Encounter Details Date Type Department Care Team (Latest Contact Info) Description 07/22/2020 Abstract [facility] CONVERSIONS Dental, Provider, DDS Social History Tobacco [...] AM EDT Office Visit [facility] ADULT DENTAL [address] [place] [address] Danna Doe [address] [place] [address] documented as of this encounter Visit Diagnoses Not on filedocumented in this encounter
--- OUTSIDE RECORDS SUMMARY | 2024-07-09 11:09 | XMS_ITS | Encounter Summary ---
Author Organization [employer] [facility] Address [address] [place] [address] 7 [place] [address] Care Team Providers Care Delicate Fabrics Presser Name Role Phone Unavailable Primary Care Provider Unavailabl e Encounter Details Date Type Department Care Team (Latest Contact Info) Description 10/14/2021 Abstract [facility] CONVERSIONS Dental, Provider, DDS Social [...] Description 08/06/2024 11:00 AM EDT Office Visit [facility] ADULT DENTAL [address] [place] [address] Danna Doe [address] [place] [address] documented as of this encounter Visit Diagnoses Not on filedocumented in this encounter
--- OUTSIDE RECORDS SUMMARY | 2024-07-09 11:10 | XMS_ITS | Clinical Summary ---
Author Organization [employer] Address [address] [facility] 7t [place] [address] Care Team Providers Care Maintenance Mechanic Engine Name Role Phone Unavailable Primary Care Provider [...] exam 01/23/2024 Dental plaque 12/12/2023 Fractured dental congregational with loss of materi al 02/05/2023 Dental calculus 06/28/2022 Encounters Date Type Department Care Team Description 07/04/2024 11:00 AM EST Office Visit [facility] ADULT DENTAL [address] [place] [address] Vick Kay, DDS 06/06/2024 1:00 PM EST Office Visit [facility]ULT [facility] [address] [facility] [place] [address] Bueno-Jimenes, Mari, DDS 06/05/2024 2:30 PM EST Office Visit [facility]ULT D[facility]AL [address] [facility] [place] [address] Bueno-Jimenes, Mari, DDS Full coverage crown needed for root canal-treated tooth (Primary Dx) 05/26/2024 1:15 PM EST Office Visit [facility] ADULT DENTAL [address] [facility] [place] [address] Bueno-Jimenes, Mari, DDS 05/22/2024 1:30 PM EST Office Visit [facility] ADULT DENTAL [address] [facility] [place] [address] Bueno-Jimenes, Mari, DDS Fractured dental congregational with loss of material (Primary Dx); Full coverage crown needed for root canal-treated tooth 04/21/2024 2:00 PM EST Office Visit [facility] ADULT DENTAL [address] [facility] [place] [address] Bueno-Jimenes, Mari, DDS Symptomatic irreversible pulpitis (Primary [...] Description 08/06/2024 11:00 AM EDT Office Visit [facility] ADULT DENTAL [address] [place] [address] Danna Doe [address] [place] [address] Health Maintenance Due Date Last Done Comments [...] Routine 05/22/2024 1:30 PM EST Fractured dental congregational with loss of material Full coverage crown needed for root canal-treated tooth CASE PRESENTATION, DETAILED AND EXTENSIVE TREATMENT PLANNING Routine 05/22/2024 1:30 PM EST Fractured dental congregational with loss of material Full coverage crown needed for root canal-treated tooth 29 CROWN PREP Routine 05/22/2024 1:30 PM EST Fractured dental congregational with loss of material Full coverage crown needed for root canal-treated tooth 29 PREFABRICATED POST AND CORE IN ADDITION TO CROWN Routine 05/22/2024 1:30 PM EST Fractured dental congregational with loss of material Full coverage crown [...] Most Recently Relevant to Health Maintenance Insurance [facility] DENTAL - HSN PARTIAL (MEDICAID)
--- OUTSIDE RECORDS SUMMARY | 2024-07-09 11:10 | XMS_ITS | Clinical Summary ---
Author Organization [facility] Address [address] [place] [address] Care Team Providers Care Stranding Machine Operator Name Role Phone Unavailable Primary Care [...]
[2024-07-09 11:15] LABS: Alanine Aminotransferase 34 U/L (0-40); Albumin Level 4.4 g/dL (3.5-5.0); Alkaline Phosphatase 79 U/L (39-117); Anion Gap 9 (12-20); Aspartate Amino Transferase 29 U/L (5-37); Bilirubin Direct 0.2 mg/dL (0.0-0.5); Bilirubin Total 0.6 mg/dL (0.0-1.0); Blood Urea Nitrogen 18 mg/dL (9-16); Calcium 9.6 mg/dL (8.4-10.2); Carbon Dioxide 28 mmol/L (22-29); Chloride 109 mmol/L (96-108); Cholesterol 192 mg/dL (<200); Estimated Glomerular Filt Rate > 60; Glucose Fasting 90 mg/dL (60-99); HDL Cholesterol 49 mg/dL (>40); LDL Cholesterol Calculated 105 mg/dL (<100); Potassium 4.1 mmol/L (3.3-5.1); Sodium 142 mmol/L (135-145); Triglycerides 194 mg/dL (<150)
== END 2024-07-09 09:41 | disposition home or self-care (01) ==
LOC: HO.LAB 09:40
PROVIDERS: PCP Internal Medicine; Visit Provider Internal Medicine
DX: Z00.00 Encounter for general adult medical examination without abnormal findings (principal); E78.5 Hyperlipidemia, unspecified; B35.1 Tinea unguium
CPT/HCPCS: 36415; 80053; 80061; 80076

== ENCOUNTER 2024-08-14 15:28 | Outpatient (AMB) | payer OTHER, SELFPAY ==
--- NOTE | 2024-08-14 15:32 | MHC.OFFVIS ---
Vital Signs 08/14/24 15:33 Height 6 ft Weight 185 lb 2 oz BMI 25.1 BP 137/70 Blood Pressure Location Rt brachial Position Sitting Pulse 66 Pulse Source Pulse Oximeter Pulse Oximetry (%) 96 Oxygen Delivery Method Room Air Intake Visit Reasons: Myofascial Pain Syndrome (NANCY: February 2024) Release Of Information Specialist Required: Yes Release Of Information Specialist Language: Human Resources Supervisor Services: Release Of Information Specialist Present Release Of Information Specialist Name: [place]([id number]) Allergies No Known Allergies [No Known Allergies*] Allergy (Verified 08/14/24 15:33) HPI Comments Details: Fred is a very pleasant Georgian speaking male who is here to discuss continuation of his medication. The medication is Lyrica. He denies side effects of the Lyrica medication he reports Lyrica helps his pain. His doses 100 mg. I will refill his medication as he requests with 5 refills. On the MRI which we obtained on his request there is no pathology from L1-L5. L5-S1 diffusely bulging disc no canal stenosis partial effacement of perineural fat with mass effect on both L5 foraminal nerve roots. The importance of this finding on MRI approach is probably minimal because his pain is nonradicular in nature and in any case does not present itself in L5 bilateral distribution. In the past to perform trigger point injections for him, in the past he reports that he has penis becomes red and irritated when I do trigger point injections.?I never heard about complication like this, however recommended him to go for urological consult and explained to urologist what happened. Unfortunately this patient did not go to urologist to receive the consultation about this complication. Therefore cannot consider administering to him today any injections with steroids. We agreed that he will go to his urologist and clear out for us past to perform injections for him. [facility] Medical History Physical exam Changes in vision Hypertriglyceridemia Overweight (BMI 25.0-29.9) GERD (gastroesophageal reflux disease) Spondylosis of lumbar spine Rash COVID-19 Myofascial pain syndrome of thoracic spine Myofascial pain syndrome Surgical History History of appendectomy Family History Mother Arthritis Hypertension Father No problems noted. 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 Current occupational exposures/hazards: No Cognitive needs: No Hearing needs: No Vision needs: No Review of Systems Const All systems reviewed & are unremarkable except as noted in HPI and below ENT Reports Normal hearing present Neuro Reports Normal hearing present, Denies confusion and Denies Sensory deficit (Neuro) Psych Denies confusion Physical Exam Vital Signs: Last Vital Signs Pulse 66 08/14/24 15:33 BP 137/70 08/14/24 15:33 Pulse Ox 96 08/14/24 15:33 Oxygen Delivery Method Room Air 08/14/24 15:33 BMI result Body Mass Index 25.1 Const General: No confusion Orientation/consciousness: No confusion Eyes Pupils: Equal, round and reactive pupils present EOM: EOMs intact bilaterally Chest Chest palpation & inspection: normal inspection of the chest Resp Effort & Inspection: normal respiratory effort, able to speak in complete sentences, normal respiratory pattern, no audible wheezes and no cough Cardio Jugular venous distension: no JVD Back/Spine/Pelvis Other: tenderness on palpation in paraspinal spinal region in thoracic spine. there are significant muscular bands probably in the projection of bilateral paraspinal or rather bilateral latissimus dorsi muscle. Loading test is negative. Range of motion in lumbar spine is preserved. Rahul test is negative bilaterally. Neuro General: No confusion Cranial nerves: Yes Equal, round and reactive pupils present and Yes Normal hearing present Sensory Exam: No Sensory deficit (Neuro) Psych Speech and movement: Normal speech and movement present Affect: normal affect Attitude: cooperative Assessment & Plan Assessment & Plan (1) Myofascial pain syndrome: Code(s): M79.18 - Myalgia, other site Category: Medical (2) Myofascial pain syndrome of thoracic spine: Code(s): M79.18 - Myalgia, other site Category: Medical Plan I will prescribe him Lyrica with 5 refills. I will see him in the future as needed. Medications: Refilled pregabalin 100 mg PO BID 30 days 60 caps 5RF Coding Level of Care Code Est Pt Level 3 (72008) Diagnoses Myofascial pain syndrome M79.18 Myofascial pain syndrome of thoracic spine M79.18
[2024-08-14 15:33] VITALS: BP 137/70; PULSE 66; O2SAT 96; BMI 25.1
--- OUTSIDE RECORDS SUMMARY | 2024-08-14 16:50 | XMS_ITS | Clinical Summary ---
Author Organization [facility] Address [address] [place] [address] Care Team Providers Care Player Development Manager Name Role Phone Unavailable Primary Care Provider [...] Active Problems Problem Noted Date Diagnosed Date Localized gingival recession 08/06/2024 Tipped teeth 08/06/2024 Normal oral exam 01/23/2024 Dental plaque 12/12/2023 Fractured dental islam with loss of materi al 02/05/2023 Dental calculus 06/28/2022 Encounters Date Type Department Care Team Description 08/06/2024 11:00 AM EDT Office Visit [facility] [address] [facility] [place] [address] [place] Dental plaque (Primary Dx); Localized gingival recession; Tipped teeth; Normal oral exam 07/04/2024 11:00 AM EST Office Visit [facility] [address] [facility] [place] [address] Eliza, Vick, DDS 06/06/2024 1:00 PM EST Office Visit [facility] [address] [facility] [place] [address] Bueno-Jimenes, Mari, DDS 06/05/2024 2:30 PM EST Office Visit [facility] [address] [facility] [place] [address] Bueno-Jimenes, Mari, DDS Full coverage crown needed for root canal-treated tooth (Primary Dx) 05/26/2024 1:15 PM EST Office Visit [facility] [address] [facility] [place] [address] Bueno-Jimenes, Mari, DDS 05/22/2024 1:30 PM EST Office Visit [facility] [address] [facility] [place] [address] Bueno-Jimenes, Mari, DDS Fractured dental islam with loss of material (Primary Dx); Full coverage crown needed for root canal-treated tooth from Last 3 Months Social History Tobacco [...] Sign Reading Time Taken Comments Blood Pressure 130/82 08/06/2024 10:59 AM EDT Pulse 74 02/05/2023 10:06 AM EDT Temperature - - Respiratory Rate - - Oxygen Saturation - - Inhaled Oxygen Concentration - - Weight - - Height - - Body Mass Index - - Plan of Treatment Upcoming Encounters Date Type Department Care Team (Late st Contact Info) Description 08/29/2024 3:30 PM EDT Office Visit [facility] [address] [place] [address] Vick Kay, DDS [address] [place] [address] 02/11/2025 10:00 AM EDT Office Visit [facility] [address] [place] [address] Danna Doe [address] [place] [address] Health Maintenance Due Date Last Done Comments [...] of 2) 2023 COVID-19 Vaccine ( - season) 2024 11/11/2021, 06/15/2021, 05/25/2021 Influenza Vaccine (#1) 2024 03/06/2016 Dental X-Ray: Full Mouth 10/15/2024 10/14/2021 Dental Oral Exam 02/07/2025 08/06/2024, , 02/05/2023, Additional history exists Dental Prophylaxis 02/07/2025 08/06/2024, 0 12/12/2023, 02/05/2023, Additional history exists Tobacco Screening 08/06/2025 08/06/2024 Dental X-Ray: Bitewings 08/07/2025 08/07/19, 07/04/2024, 06/05/2024, Additional history exists DTaP/Tdap/Td Vaccines (4 - [...] Procedure Name Priority Date/Time Associated Diagnosis Comments PERIODIC ORAL EVALUATION - ESTABLISHED PATIENT Routine 08/06/2024 11:00 AM EDT 30 INTRAORAL - PERIAPICAL EACH ADDITIONAL RADIOGRAPHIC IMAGE Routine 08/06/2024 11:00 AM EDT CASE PRESENTATION, DETAILED AND EXTENSIVE TREATMENT PLANNING Routine 08/06/2024 11:00 AM EDT Dental plaque ORAL HYGIENE INSTRUCTIONS Routine 2024 11:00 AM EDT Dental plaque PROPHYLAXIS - ADULT Routine 08/06/2024 1 1:00 AM EDT Dental plaque INTRAORAL - PERIAPICAL EACH ADDITIONAL RADIOGRAPHIC IMAGE Routine 08/06/2024 11:00 AM EDT Dental plaque INTRAORAL - PERIAPICAL FIRST RADIOGRAPHIC IMAGE Routine 08/06/2024 11:00 AM EDT Dental plaque BITEWINGS - 4 RADIOGRAPHIC IMAGES Routine 08/06/2024 11:00 AM EDT Dental plaque 15 MO COMPOSITE FILLING Routine 08/07/19 12:00 AM EDT BITEWING - SINGLE RADIOGRAPHIC IMAGE Routine 07/04/2024 [...] Routine 05/22/2024 1:30 PM EST Fractured dental islam with loss of material Full coverage crown needed for root canal-treated tooth CASE PRESENTATION, DETAILED AND EXTENSIVE TREATMENT PLANNING Routine 05/22/2024 1:30 PM EST Fractured dental islam with loss of material Full coverage crown needed for root canal-treated tooth 29 CROWN PREP Routine 05/22/2024 1:30 PM EST Fractured dental islam with loss of material Full coverage crown needed for root canal-treated tooth 29 PREFABRICATED POST AND CORE IN ADDITION TO CROWN Routine 05/22/2024 1:30 PM EST Fractured dental islam with loss of material Full coverage crown needed for root canal-treated tooth from Last 3 Months Insurance [facility] DENTAL - HSN PARTIAL (MEDICAID)
--- OUTSIDE RECORDS SUMMARY | 2024-08-14 16:50 | XMS_ITS | Encounter Summary ---
Author Organization [facility] Address [address] [place] [address] 7 [place] [address] Care Team Providers Care Wallpaperer Helper Name Role Phone Unavailable Primary Care Provider Unavailabl e Encounter Details Date Type Department Care Team (Latest Contact Info) Description 07/22/2020 Abstract [facility] CONVERSIONS Dental, Provider, DDS Social History [...] Description 08/29/2024 3:30 PM EDT Office Visit [facility] ADULT D[facility] [address] [place] [address] ElizaVick, DDS [address] [place] [address] 02/11/2025 10:00 AM EDT Office Visit [facility]ULT [facility] [address] [place] [address] Brook, Danna [address] [place] [address] documented as of this encounter Visit Diagnoses Not on filedocumented in this encounter
--- OUTSIDE RECORDS SUMMARY | 2024-08-14 16:50 | XMS_ITS | Clinical Summary ---
Author Organization [facility] Address [address] [place] [address] Care Team Providers Care Client Care Specialist Name Role Phone Unavailable Primary Care Provider [...]
--- OUTSIDE RECORDS SUMMARY | 2024-08-14 16:50 | XMS_ITS | Encounter Summary ---
Author Organization [facility] Address [address] [place] [address] 7 [place] [address] Care Team Providers Care [place]en [place] Utility Worker Name Role Phone Unavailable Primary Care Provider Unavailabl e Encounter Details Date Type Department Care Team (Latest Contact Info) Description 10/14/2021 Abstract [facility] CONVERSIONS Dental, Provider, DDS Social History [...] Description 08/29/2024 3:30 PM EDT Office Visit [facility] ADULT DENT[facility] [address] [place] [address] ElizaVick, DDS 230 [place] [address] 02/11/2025 10:00 AM EDT Office Visit [facility] ADULT [facility] [address] [place] [address] Brook, Danna [address] [place] [address] documented as of this encounter Visit Diagnoses Not on filedocumented in this encounter
== END 2024-08-14 15:49 | disposition home or self-care (01) ==
LOC: HO.PMC 15:29
PROVIDERS: PCP Internal Medicine; Visit Provider Anesthesiology
DX: M79.18 Myalgia, other site (principal)
CPT/HCPCS: 99213

== ENCOUNTER → 2024-08-14 15:28 | Outpatient (BNVA) | payer OTHER, SELFPAY | PROVIDERS: PCP Internal Medicine; Visit Provider Anesthesiology | DX: M79.18 Myalgia, other site (principal); Z79.899 Other long term (current) drug therapy | CPT/HCPCS: 99212 ==

== ENCOUNTER 2024-09-03 09:16 | Outpatient (AMB) | payer OTHER, SELFPAY ==
--- NOTE | 2024-09-03 09:18 | A.OFFVIS_ITS ---
Vital Signs 09/03/24 09:19 Height 6 ft Weight 185 lb BMI 25.1 BP 130/80 Blood Pressure Location Rt brachial Position Sitting Pulse 86 Pulse Source Pulse Oximeter Pulse Oximetry (%) 98 Oxygen Delivery Method Room Air Intake Visit Reasons: 3 mo gerd Intake Note: ESTABLISHED PATIENT for GERD mgmt. CC; Pt reports reflux has improved since NANCY. However; pt does report occasional episodes with increased phlegm / mucus production and finds he constantly has to clear his throat. Computer Information Systems Professor Required: Yes Computer Information Systems Professor Services: Computer Information Systems Professor Present Computer Information Systems Professor Name: [facility] [place] [id number] Information Interpreted: clinical only Accompanied by: Self / Same As Patient Allergies No Known Allergies [No Known Allergies*] Allergy (Verified 09/03/24 09:19) HPI HPI 3 mo gerd: Details: LAST VISIT GERD (gastroesophageal reflux disease) Constipation Postprandial abdominal bloating Plan Patient will take pantoprazole twice a day. Will take sucralfate twice a day in the afternoon and at bedtime. Avoid dietary triggers and late night snacking. Staying upright for minimum 3 hours after meals discussed with patient. Posterior pharynx red streaky looks like he might have postnasal drip. Constant throat clearing. Patient was advised to follow-up with PCP will give him month w orth of antihistamine. Zyrtec send to pharmacy. Patient reports that there are days when he does not have a complete bowel movement. Reports occasional constipation. Will send script for MiraLax. Increase fluid intake and activity to promote better bowel motility. Patient will follow-up in 3 months, sooner on as needed basis. He is agreeable to this plan and verbalizes understanding of instructions. He was given the opportunity to ask questions and all questions answered. ? Thank you for allowing me to participate in his care Medications New polyethylene glycol 3350 (Miralax) 17 grams PO DAILY 510 grams 2RF cetirizine (Zyrtec) 10 mg PO DAILY PRN 30 tabs 0RF allergy symptoms J31.0 Changed Changed From sucralfate (Carafate) Crush and dissolve in 30 ml of water and swallow twice daily for GERD 1 g PO BID 30 days 60 tabs 2RF K21.9 Changed To sucralfate (Carafate) Crush and dissolve in 30 ml of water and swallow twice daily for GERD 1 g PO DAILY 30 tabs 2RF 30 days K21.9 Changed From pantoprazole 40 mg PO DAILY 90 tabs 1RF K21.9 Changed To pantoprazole 40 mg PO BID 180 tabs 1RF K21.9 Discontinued famotidine Discontinued Reason: Doctor's Order 40 mg PO BEDTIME 90 days 90 tabs 0RF TODAY'S VISIT Patient is here today for follow-up. Patient reports that he has been feeling better since last visit, however he continues to experience increased mucus in his throat and feels like he has to clear his throat often. Pharmacy gave patient only and off pantoprazole for once a day as insurance was not covering twice a day. Patient ran out of sucralfate and has been taking famotidine at bedtime, left over from previous visits. Patient denies any nausea or vomiting. Denies any dyspepsia, dysphagia or odynophagia. Denies any melena, hematochezia, unintentional weight loss or ribbon like stools. Otherwise patient reports to be feeling well. States that he changed his diet. Denies eating late at night [facility] Medical History Physical exam Changes in vision Hypertriglyceridemia Overweight (BMI 25.0-29.9) GERD (gastroesophageal reflux disease) Spondylosis of lumbar spine Rash COVID-19 Myofascial pain syndrome of thoracic spine Myofascial pain syndrome Surgical History History of appendectomy Family History Mother Arthritis Hypertension Father No problems noted. 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 Current occupational exposures/hazards: No Cognitive needs: No Hearing needs: No Vision needs: No Review of Systems Const Denies weight gain and Denies weight loss ENT Reports no additional complaints, Denies dysphagia and Denies odynophagia Card Reports no additional complaints Resp Reports no additional complaints GI Denies abdominal pain, Denies belching, Denies melena, Denies bloating, Denies change in bowel habits, Denies dysphagia, Denies excessive flatus, Denies dyspepsia, Denies heartburn, Denies diarrhea, Denies loose stools, Denies nausea, Denies odynophagia, Denies vomiting and Reports other (Increased mucus in his throat) Reports no additional complaints Musc Reports no additional complaints Neuro Reports no additional complaints Psych Reports no additional complaints Endo Reports no additional complaints Physical Exam Vital Signs: Last Vital Signs Pulse 86 09/03/24 09:19 BP 130/80 09/03/24 09:19 Pulse Ox 98 09/03/24 09:19 Oxygen Delivery Method Room Air 09/03/24 09:19 BMI result Body Mass Index 25.1 Const General: healthy appearing, no acute distress and well developed Nutritional Appearance: well nourished Orientation/consciousness: patient oriented x3 Cardio Rate: regular rate GI Inspection: Yes normal to inspection and No distended Palpation (GI): Soft to palpation, not firm, nontender and No hepatosplenomegaly present Auscultation: normal bowel sounds General: Yes no CVA tenderness Back/Spine/Pelvis Back: no CVA tenderness Skin General skin exam: elasticity normal, turgor normal and dry skin Neuro General: patient oriented x3 Psych Appearance: grossly normal Mental Status: mental status grossly normal Assessment & Plan Assessment & Plan (1) GERD (gastroesophageal reflux disease): Code(s): K21.9 - Gastro-esophageal reflux disease without esophagitis Category: Medical Qualifiers: Esophagitis bleeding: without hemorrhage Esophagitis presence: with esophagitis Qualified Code(s): K21.00 - Gastro-esophageal reflux disease with esophagitis, without bleeding (2) Constipation: Code(s): K59.00 - Constipation, unspecified Qualifiers: Constipation type: slow transit constipation Qualified Code(s): K59.01 - Slow transit constipation (3) Postprandial abdominal bloating: Code(s): R14.0 - Abdominal distension (gaseous) Plan Patient will take sucralfate at bedtime only. Pantoprazole twice a day. Will call his pharmacy to make sure that this will be approved and if not what medication will be approved twice a day. Avoid dietary triggers and late night snacking. Staying upright for minimum 3 hours after meals discussed with patient. Patient will follow-up in 6 months, sooner on as needed basis. He is agreeable to this plan and verbalizes understanding of instructions. He was given the opportunity to ask questions and all questions answered. Thank you for allowing me to participate in his care Medications: Changed From sucralfate (Carafate) Crush and dissolve in 30 ml of water and swallow twice daily for GERD 1 g PO DAILY 30 days 30 tabs 2RF K21.9 - Gastro-esophageal reflux disease without esophagitis To sucralfate (Carafate) Crush and dissolve in 30 ml of water and swallow daily for GERD 1 g PO DAILY 90 tabs 2RF K21.9 - Gastro-esophageal reflux disease without esophagitis Refilled pantoprazole 40 mg PO BID 180 tabs 1RF K21.9 - Gastro-esophageal reflux disease without esophagitis pantoprazole 40 mg PO BID 180 tabs 1RF K21.9 - Gastro-esophageal reflux disease without esophagitis Coding Level of Care Code Est Pt Level 3 (56893) Diagnoses Gastroesophageal reflux disease with esophagitis without hemorrhage K21.00 Esophagitis bleeding: without hemorrhage Esophagitis presence: with esophagitis Slow transit constipation K59.01 Constipation type: slow transit constipation Postprandial abdominal bloating R14.0 Time Spent (min) 30 Comment 20 minutes spent with patient and additional 10 minutes spent reviewing his records
[2024-09-03 09:19] VITALS: BP 130/80; PULSE 86; O2SAT 98; BMI 25.1
--- OUTSIDE RECORDS SUMMARY | 2024-09-03 10:08 | XMS_ITS | Encounter Summary ---
Author Organization [facility] Address [address] [place] [address] 7 [place] [address] Care Team Providers Care Clinical Recruiter Name Role Phone Unavailable Primary Care Provider Unavailabl e Encounter Details Date Type Department Care Team (Latest Contact Info) Description 10/14/2021 Abstract [facility] CONVERSIONS Dental, Provider, DDS Social History [...] Care Team (Late st Contact Info) Description 02/11/2025 10:00 AM EDT Office Visit [facility] ADULT D[facility] [address] [place] [address] Luis Carlos Doearis [address] [place] [address] documented as of this encounter Visit Diagnoses Not on filedocumented in this encounter
--- OUTSIDE RECORDS SUMMARY | 2024-09-03 10:08 | XMS_ITS | Clinical Summary ---
[facility] Organization [facility] Address [address] [place] [address] Care Team Providers Care Sterilisation Technician Name Role Phone Unavailable Primary Care [...] Vaccine (2023-2 5 season) 2024 Influenza Vaccine (Season Ended) 2025 HIB Vaccines Aged Out No longer eligi [...] age to complete this topic Meningococcal B Vaccine Aged Out No l onger eligible based on patient's age to complete [...]
--- OUTSIDE RECORDS SUMMARY | 2024-09-03 10:08 | XMS_ITS | Encounter Summary ---
Author Organization [facility] Address [address] [place] [address] Care Team Providers Care Optometrist Assistant Name Role Phone Tammy Dietrich MD Primary Care Provider Un available Community, Pcp Primary Care Provider Unavailabl e Reason for Visit * Reason Onset Date Comments lab test 08/20/2017 Encounter Details Date Type Department Care Team Description 08/20/2017 Telephone Adult Medicine [facility] [address] [place], [place] [phone] Monik Prado PA-C [address] [place], [place] [phone] lab test Social History Tobacco Use Types Packs/Day Years Used Date Smoking Tobacco: Former Smokeless Tobacco: Never Alcohol Use Standard Drinks/Week Comments No 0 (1 standard drink = 0.6 oz pur e alcohol) Sex Assigned at Date Recorded Not on file documented as of this encounter Miscellaneous Notes * Telephone Encounter - Rachael Hopkins M.A. - 08/22/2017 4:29 PM EDT [phone] (home) [phone] (work) Inform the patient Monik Eve placed additional labs due to his abdominal pains he had. Patientstated he works and can't come to the lab til Sunday. * Telephone Encounter - Rachael Hopkins M.A. - 08/22/2017 3:29 PM EDT [phone] (home) [phone] (work) Left a message on the voicemail for the patient to return my call and ask for Rachael in the [place] dept. * Telephone Encounter - Carey Duque C.M.A. - 08/22/2017 2:15 PM EDT I tried to call patient, but he was andorran speaking only. Will have someone attempt to call him. * Telephone Encounter - Rachael Hopkins M.A. - 08/20/2017 2:46 PM EDT [phone] (home) [phone] (work) Left a message on the voicemail to return call and ask for Rachael in the [place] dept. * Telephone Encounter - Monik Prado PA-C - 08/20/2017 10:03 AM EDT Please call pt and advise I have ordered additional labs for cause of abdominal pain, please go to the lab to complete. documented in this encounter Plan of Treatment Not on file documented as of this encounter Visit Diagnoses Not on filedocumented in this encounter Care Teams Optometrist Assistant Relationship Specialty Start Date End Date Tammy Dietrich MD PCP - General Internal Medicine 10/20/16 [facility], Pcp PCP - General Internal Medicine 09/24/18 documented as of this encounter
--- OUTSIDE RECORDS SUMMARY | 2024-09-03 10:08 | XMS_ITS | Clinical Summary ---
Author Organization [facility] Address [address] [place] [address] Care Team Providers Care National Recruiter Name Role Phone Community, Pcp Primary Care [...] 60 Tab 0 07/24/2018 Active ergocalciferol (ERGOCALCIFEROL) 51166 UNITS capsule Take 1 Cap by mouth [...] 2023 SHINGLES VACCINE (1 of 2) 2023 BMI CHECK/ADVISE 05/14/2024 INFLUENZA (Season Ended) 2025 DTAP/TDAP/TD (2 - Td or Tdap) 03/06/2026 03/06/2016 (Refused) PNEUMOCOCCAL VACCINE FOR HIG H RISK PATIENTS (#1) 2038 Care Teams National Recruiter Relationship Specialty Start Date End Date Community, Pcp PCP - General Internal Medicine 09/24/18
--- OUTSIDE RECORDS SUMMARY | 2024-09-03 10:08 | XMS_ITS | Clinical Summary ---
Author Organization [employer] Address [address] [place] [address] Care Team Providers Care Boat Hand Name Role Phone Unavailable Primary Care Provider [...] exam 01/23/2024 Dental plaque 12/12/2023 Fractured dental synagogue with loss of materi al 02/05/2023 Dental calculus 06/28/2022 Encounters Date Type Department Care Team Description 08/06/2024 11:00 AM EDT Office Visit [facility] ADULT DENTAL [address] [place] [address] Danna Doe Dental plaque (Primary Dx); Localized gingival recession; Tipped teeth; Normal oral exam 07/04/2024 11:00 AM EST Office Visit [facility] ADULT DENT[facility] [address] [place] [address] Vick Kay, DDS 06/06/2024 1:00 PM EST Office Visit [facility] ADULT DENT[facility] [address] [place] [address] Bueno-Jimenes, Mari, DDS 06/05/2024 2:30 PM EST Office Visit [facility] ADULT DENT[facility] [address] [place] [address] Bueno-Jimenes, Mari, DDS Full coverage crown needed for root canal-treated tooth (Primary Dx) from Last 3 Months Social [...] Description 02/11/2025 10:00 AM EDT Office Visit [facility] ADULT DENT[facility] [address] [place] [address] Danna Doe [address] [place] [address] Health Maintenance Due Date Last Done Comments [...] Vaccines (1 of 2) 2023 COVID-19 Vaccine (4 - 2023- season) 2024 11/11/2021, 06/15/2021, 05/25/2021 [...] EDT Dental plaque ORAL HYGIENE INSTRUCTIONS Routine 08/06/2024 11:00 AM EDT Dental plaque PROPHYLAXIS - [...] canal-treated tooth from Last 3 Months Insurance [facility] DENTAL - HSN PARTIAL (MEDICAID)
--- OUTSIDE RECORDS SUMMARY | 2024-09-03 10:08 | XMS_ITS | Encounter Summary ---
Author Organization [facility] Address [address] [place] [address] Care Team Providers Care Mental Health Worker Name Role Phone Darnell Brito MD Primary Care Provider [phone] Tammy Dietrich MD Primary Care Provider Un available Community, Pcp Primary Care Provider Unavailabl e Encounter Details Date Type Department Care Team Description 08/31/2016 Release of Information Medical Records [address] [place] [id number] Abstract, Provider Social History Tobacco Use Types Packs/Day Years Used Date Smoking Tobacco: Never Assessed Sex Assigned at Date Recorded Not on file documented as of this encounter Plan of Treatment Not on file documented as of this encounter Visit Diagnoses Not on filedocumented in this encounter Care Teams Mental Health Worker Relationship Specialty Start Date End Date Darnell Brito MD [address] [place] [id number] PCP - General Internal Medicine 08/24/16 10/19/16 Tammy Dietrich MD [address] [place] [id number] PCP - General Internal Medicine 10/20/16 09/23/18 [facility], Pcp [address] [place] [id number] PCP - General Internal Medicine 09/24/18 documented as of this encounter
--- OUTSIDE RECORDS SUMMARY | 2024-09-03 10:08 | XMS_ITS | Encounter Summary ---
Author Organization [facility] Address [address] [place] [address] Care Team Providers Care Cultural Anthropology Professor Name Role Phone Community, Pcp Primary Care Provider Unavailabl e Encounter Details Date Type Department Care Team Description 10/03/2018 Release of Information Medical Records [address] [place] [id number] Abstract, Provider Social History Tobacco Use Types [...] on filedocumented in this encounter Care Teams Cultural Anthropology Professor Relationship Specialty Start Date End Date Community, Pcp PCP - General Internal Medicine 09/24/18 documented as of this encounter
--- OUTSIDE RECORDS SUMMARY | 2024-09-03 10:08 | XMS_ITS | Encounter Summary ---
Author Organization [employer] [facility] Address [address] [place] [address] Care Team Providers Care Quiller Operator Name Role Phone Tammy Dietrich MD Primary Care Provider Un available [facility], Pcp Primary Care Provider Unavailabl e Reason for Visit * Reason Onset Date Comments er follow up 10/02/2017 [facility] Encounter Details Date Type Department Care Team Description 10/02/2017 Telephone Adult Medicine [address] [id number] Tammy Dietrich MD er follow up ([facility] ) Social History Tobacco Use Types [...] [facility] Date of visit: 09/30/17 Was this only [...] on filedocumented in this encounter Care Teams Quiller Operator Relationship Specialty Start Date End Date Tammy Dietrich MD PCP - General Internal Medicine 10/20/16 [facility], [facility] PCP - General Internal Medicine 09/24/18 documented as of this encounter
--- OUTSIDE RECORDS SUMMARY | 2024-09-03 10:08 | XMS_ITS | Encounter Summary ---
Author Organization [employer] [facility] Address [address] [place] [address] [address] [place] [address] Care Team Providers Care Inspectors And Regulatory Officers Name Role Phone Unavailable Primary Care Provider Unavailabl e Encounter Details Date Type Department Care Team (Latest Contact Info) Description 07/22/2020 Abstract [facility] CONVERSIONS Dental, Provider, DDS Social History [...] Description 02/11/2025 10:00 AM EDT Office Visit [facility] ADULT DENTAL [address] [place] [address] Luis Carlos Doearis [address] [place] [address] documented as of this encounter Visit Diagnoses Not on filedocumented in this encounter
== END 2024-09-03 09:44 | disposition home or self-care (01) ==
LOC: HO.HGI 09:17
PROVIDERS: PCP Internal Medicine; Visit Provider Nurse Practitioner Family
DX: K21.00 Gastro-esophageal reflux disease with esophagitis, without bleeding (principal); K59.01 Slow transit constipation; R14.0 Abdominal distension (gaseous)
CPT/HCPCS: 99213

== ENCOUNTER → 2024-09-03 09:16 | Outpatient (BNVA) | payer OTHER, SELFPAY | PROVIDERS: PCP Internal Medicine; Visit Provider Nurse Practitioner Family | DX: K21.00 Gastro-esophageal reflux disease with esophagitis, without bleeding (principal); K59.01 Slow transit constipation; R14.0 Abdominal distension (gaseous) | CPT/HCPCS: 99212 ==

== ENCOUNTER 2024-09-24 17:25 | Outpatient (AMB) | payer OTHER, SELFPAY ==
--- NOTE | 2024-09-24 17:28 | A.OFFPC_ITS ---
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 Accompanied by: Self / Same As Patient Allergies No Known Allergies [No Known Allergies*] Allergy (Verified 09/24/24 17:34) Medication List - Last Reconciled 09/24/24 by Vanita Garrison MD cetirizine (Zyrtec) 10 mg PO DAILY PRN escitalopram oxalate 10 mg PO DAILY fenofibrate nanocrystallized 145 mg PO DAILY 90 days pantoprazole 40 mg PO BID polyethylene glycol 3350 (Miralax) 17 grams PO DAILY pregabalin 100 mg PO BID 30 days sucralfate (Carafate) 1 g PO DAILY terbinafine HCl 250 mg PO DAILY 90 days tramadol 50 mg PO BID PRN 30 days Tobacco use date assessed: 05/21/24 Dental Screening Dental Screen Date: 05/21/24 HPI HPI Comments History of Present Illness Details The patient is a 49-year-old male presenting with an umbilical hernia. 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 The patient recently undertook a physical exercise regime, which further highlighted the protrusion. He describes the hernia as creating a sense of fullness and occasionally swelling without significant pain. Initially evaluated by a surgeon five years ago, it was deemed non-urgent. The patient now wishes to pursue surgical treatment due to concerns about possible complications. The patient also manages several other chronic conditions with medication. [facility] Medical History (Updated 09/24/24 @ 17:45 by Vanita Garrison MD) Physical exam Changes in vision Hypertriglyceridemia Overweight (BMI 25.0-29.9) GERD (gastroesophageal reflux disease) Spondylosis of lumbar spine Rash COVID-19 Myofascial pain syndrome of thoracic spine Myofascial pain syndrome Surgical History History of appendectomy Family History Mother Arthritis Hypertension Father No problems noted. 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 Current occupational exposures/hazards: No Cognitive needs: No Hearing needs: No Vision needs: No Questionnaire Thrive Questionnaire Date Thrive assessed: 05/21/24 I am a: Patient What is your living situation today?: I have a steady place to live Within the past 12 months, did the food you bought not last and you didn't have the money to get more?: I choose not to answer this question Within the past 12 months, did you worry whether your food would run out before you got money to buy more?: I choose not to answer this question Do you have trouble paying for medicines?: No Do you have trouble getting transportation to medical appointments?: No Do you have trouble paying your heating and electricity bill?: No Do you have trouble taking care of your child, family member or friend?: No Do you have trouble with day-to-day activities such as bathing, preparing meals, shopping, managing finances, etc.?: No Are you currently unemployed and looking for a job?: No Are you interested in more education?: I choose not to answer this question Please select the resources that you would like help with: Job search/training Currently or been in a relationship where the following occur: No concerns reported THRIVE Score: 0 JESSICA-7 AMB Questionnaire JESSICA-7 Date JESSICA - 7 assessed: 05/21/24 Source: Developed by Drs. Dejuan Amador, Leta Calderon, Dieter Sarah and colleagues, with an educational abhay from [employer]. Review of Systems Const All systems reviewed & are unremarkable except as noted in HPI and below ENT Denies change in voice, Denies nasal discharge and Denies sinus pain Card Denies chest pain at rest, Denies chest pain with activity, Denies edema, Denies irregular heart rhythm, Denies claudication, Denies dyspnea, Denies dyspnea on exertion, Denies orthopnea, Denies paroxysmal nocturnal dyspnea and Denies slow heart rate Resp Denies cough, Denies dyspnea and Denies dyspnea on exertion Physical exam (Primary Care) Vital Signs: Last Vital Signs BP 126/80 09/24/24 17:30 BMI result Body Mass Index 24.5 Tobacco/Smoking Status: Tobacco use Status Tobacco use date assessed 05/21/24 09/24/24 17:31 Patient Tobacco Use Status Never used Tobacco 09/24/24 17:31 Tobacco use type 07/08/24 07:06 e-Cigarette/Vaping Use Never Used 09/24/24 17:31 Thrive Assessment: Date of Thrive Assessment Date Thrive assessed 05/21/24 09/24/24 17:31 Currently or been in a relationship where the following occur: No concerns reported Resp Effort & Inspection: normal respiratory effort Auscultation: clear to auscultation bilaterally Cardio Jugular venous distension: no JVD Rate: regular rate Rhythm: regular rhythm Heart sounds: S1 normal heart sound present and S2 normal heart sound present GI Inspection: Yes normal to inspection Palpation (GI): Soft to palpation, nontender and Hernia present indirect inguinal on the left Auscultation: normal bowel sounds Extrem General: Yes full ROM Coding Level of Care Code Est Pt Level 4 (16279) Complex EM visit Add On G2211 Diagnoses Left inguinal hernia K40.90 Onychomycosis B35.1 Gastroesophageal reflux disease with esophagitis without hemorrhage K21.00 Esophagitis presence: with esophagitis Esophagitis bleeding: without hemorrhage Spondylosis of lumbar spine M47.816 Hypertriglyceridemia E78.1 Anxiety F41.9 Time Spent (min) 20 Assessment & Plan Assessment & Plan (1) Left inguinal hernia: Code(s): K40.90 - Unilateral inguinal hernia, without obstruction or gangrene, not specified as recurrent Category: Medical (2) Onychomycosis: Code(s): B35.1 - Tinea unguium Category: Medical (3) GERD (gastroesophageal reflux disease): Code(s): K21.9 - Gastro-esophageal reflux disease without esophagitis Category: Medical Qualifiers: Esophagitis presence: with esophagitis Esophagitis bleeding: without hemorrhage Qualified Code(s): K21.00 - Gastro-esophageal reflux disease with esophagitis, without bleeding (4) Spondylosis of lumbar spine: Code(s): M47.816 - Spondylosis without myelopathy or radiculopathy, lumbar region Category: Medical (5) Hypertriglyceridemia: Code(s): E78.1 - Pure hyperglyceridemia Category: Medical (6) Anxiety: Code(s): F41.9 - Anxiety disorder, unspecified Category: Medical Plan To manage the umbilical hernia, I recommend conducting an ultrasound for detailed assessment and subsequent referral to a surgeon. The patient is considering operative repair due to concern over potential complications. Meanwhile, I advised reducing exercise intensity to mitigate hernia stress. Consistent management of chronic conditions remains crucial, and medication adherence should be maintained. Patient was informed and verbally consented to the use of an ambient scribe for clinic note documentation during this visit. I discussed with the patient the possibility of surgical treatment for the umbilical hernia, emphasizing the benefits of addressing potential discomfort and preventing complications. We reviewed the temporary measures to alleviate symptoms, such as moderating physical activity, and discussed the steps leading up to potential surgical intervention. I reassured the patient that an ultrasound would be scheduled soon and that a referral to a surgeon would follow. I addressed the patient's other chronic conditions, emphasizing consistent medication adherence to manage symptoms effectively. Orders: Orders US abdomen limited Today K40.90 - Unilateral inguinal hernia, without obstruction or gangrene, not specified as recurrent Referrals General Surgery Referral K40.90 - Unilateral inguinal hernia, without obstruction or gangrene, not specified as recurrent Patient Instructions: - Await call to schedule your abdominal ultrasound. - Follow up with a surgeon for a consultation after the ultrasound. - Avoid heavy lifting and strenuous exercise until further notice. - Continue taking your prescribed medications as directed. - Monitor for any new symptoms or increased discomfort and report immediately.
[2024-09-24 17:30] VITALS: BP 126/80; BMI 24.5
== END 2024-09-24 17:45 | disposition home or self-care (01) ==
PROVIDERS: PCP Internal Medicine; Visit Provider Internal Medicine
DX: K40.90 Unilateral inguinal hernia, without obstruction or gangrene, not specified as recurrent (principal); B35.1 Tinea unguium; K21.00 Gastro-esophageal reflux disease with esophagitis, without bleeding; M47.816 Spondylosis without myelopathy or radiculopathy, lumbar region; E78.1 Pure hyperglyceridemia; F41.9 Anxiety disorder, unspecified

== ENCOUNTER → 2024-09-24 17:25 | Outpatient (BNVA) | payer OTHER, SELFPAY | PROVIDERS: PCP Internal Medicine; Visit Provider Internal Medicine | DX: K40.90 Unilateral inguinal hernia, without obstruction or gangrene, not specified as recurrent (principal); B35.1 Tinea unguium; K21.00 Gastro-esophageal reflux disease with esophagitis, without bleeding; M47.816 Spondylosis without myelopathy or radiculopathy, lumbar region; E78.1 Pure hyperglyceridemia; F41.9 Anxiety disorder, unspecified | CPT/HCPCS: 99212 ==

== ENCOUNTER 2024-09-26 13:57 | Outpatient (REF) | payer OTHER, SELFPAY ==
--- NOTE | ~2024-09-26 | US_ITS ---
EXAMINATION: US PELVIS, LIMITED/FOLLOW UP CLINICAL INFORMATION: Evaluate for left inguinal hernia. COMPARISON: None available. TECHNIQUE: Color and grayscale ultrasound imaging of the left inguinal region was performed both before and after Valsalva maneuver, standing and supine, in the region of palpable concern. FINDINGS: There is a left inguinal hernia containing containing fat visualize, with the hernia sac measuring approximately 3.1 cm in diameter. US/US pelvic limited IMPRESSION: Fat-containing left inguinal hernia confirmed. Electronically signed by: Alfred Morillo MD 09/26/2024 02:31 PM EDT
--- OUTSIDE RECORDS SUMMARY | 2024-09-26 14:01 | XMS_ITS | Clinical Summary ---
Author Organization [employer] Address [address] [facility] [address] [place] [address] Care Team Providers Care News Reporter Name Role Phone Unavailable Primary Care Provider [...] exam 01/23/2024 Dental plaque 12/12/2023 Fractured dental christianity with loss of materi al 02/05/2023 Dental calculus 06/28/2022 Encounters Date Type Department Care Team Description 08/06/2024 11:00 AM EDT Office Visit [facility] ADULT DENTAL [address] [place] [address] Danna Doe Dental plaque (Primary Dx); Localized gingival recession; Tipped teeth; Normal oral exam 07/04/2024 11:00 AM EST Office Visit [facility] ADULT D[facility]AL [address] [place] [address] Vick Kay DDS from Last 3 Months Social History Tobacco [...] Description 02/11/2025 10:00 AM EDT Office Visit [facility] ADULT DENTAL [address] [place] [address] Danna Doe [address] [place] [address] Health Maintenance Due Date Last Done Comments [...] SURF, POSTERIOR Routine 07/04/2024 11:00 AM EST from Last 3 Months Insurance [facility] - HSN PARTIAL (MEDICAID)
--- OUTSIDE RECORDS SUMMARY | 2024-09-26 14:01 | XMS_ITS | Clinical Summary ---
Author Organization [facility] Address [address] [place] [address] Care Team Providers Care Validation Intern Name Role Phone Unavailable Primary Care Provider [...]
--- OUTSIDE RECORDS SUMMARY | 2024-09-26 14:01 | XMS_ITS | Encounter Summary ---
Author Organization [employer] [facility] Address [address] [facility] [address] [place] [address] Care Team Providers Care Pharmacy Buyer Name Role Phone Unavailable Primary Care Provider Unavailabl e Encounter Details Date Type Department Care Team (Latest Contact Info) Description 07/22/2020 Abstract [facility] CONVERSIONS Dental, Provider, DDS Social History [...] Description 02/11/2025 10:00 AM EDT Office Visit [facility] ADULT DENTAL [address] [place] [address] Luis Carlos Doearis [address] [place] [address] documented as of this encounter Visit Diagnoses Not on filedocumented in this encounter
--- OUTSIDE RECORDS SUMMARY | 2024-09-26 14:01 | XMS_ITS | Encounter Summary ---
Author Organization [employer] [facility] Address [address] [facility] [address] [place] [address] Care Team Providers Care Counselor Education Professor Name Role Phone Unavailable Primary Care Provider Unavailabl e Encounter Details Date Type Department Care Team (Latest Contact Info) Description 10/14/2021 Abstract [facility] CONVERSIONS Dental, Provider, DDS Social History [...] Description 02/11/2025 10:00 AM EDT Office Visit [facility] ADULT DENTAL [address] [place] [address] Luis Carlos Doearis [address] [place] [address] documented as of this encounter Visit Diagnoses Not on filedocumented in this encounter
== END 2024-09-26 13:58 | disposition home or self-care (01) ==
LOC: HO.HMGCX 13:57
PROVIDERS: PCP Internal Medicine; Visit Provider Internal Medicine
DX: K40.90 Unilateral inguinal hernia, without obstruction or gangrene, not specified as recurrent (principal)
CPT/HCPCS: 76857

== ENCOUNTER → 2024-09-26 13:59 | Outpatient (BNV) | payer OTHER, SELFPAY | PROVIDERS: PCP Internal Medicine; Visit Provider Radiology Diagnostic Radiology | DX: K40.91 Unilateral inguinal hernia, without obstruction or gangrene, recurrent (principal) | CPT/HCPCS: 76857 ==

== ENCOUNTER 2024-10-21 14:09 | Outpatient (REF) | payer OTHER, SELFPAY ==
[2024-10-21 14:23] LABS: MANUAL DIFF FLAG NO
[2024-10-21 14:52] LABS: Basophils Percent Auto 0.6 % (0-2); Eosinophils Absolute Auto 0.1 X10*3/uL (0.0-0.4); Hematocrit 45.1 % (42.0-52.0); Hemoglobin 15.6 g/dl (14.0-18.0); Imm Gran Abs Auto 0.03 X10*3/uL (0.00-0.03); Imm Gran Pct Auto 0.5 % (0.0-0.4); Lymphocytes Absolute Auto 1.6 X10*3/uL (1.2-4.9); Lymphocytes Percent Auto 24.9 % (20-40); Mean Corpuscular HGB Conc 34.6 g/dl (31.0-36.0); Mean Corpuscular Hemoglobin 29.3 pg (27.0-33.0); Mean Corpuscular Volume 84.8 fL (80.0-98.0); Mean Platelet Volume 9.5 fL (9.4-12.4); Monocytes Absolute Auto 0.5 X10*3/uL (0.1-1.2); Monocytes Percent Auto 8.5 % (2-11); Neutrophils Percent Auto 64.5 % (45-73); Platelet Count 302 X10*3/uL (160-400); Red Blood Count 5.32 X10*6/uL (4.60-5.80); White Blood Count 6.2 X10*3/uL (4.8-10.8)
[2024-10-21 15:33] LABS: Alanine Aminotransferase 27 U/L (0-40); Albumin Level 4.9 g/dL (3.5-5.0); Alkaline Phosphatase 86 U/L (39-117); Aspartate Amino Transferase 27 U/L (5-37); Bilirubin Direct 0.1 mg/dL (0.0-0.5); Bilirubin Total 0.3 mg/dL (0.0-1.0); Total Protein 7.9 g/dL (6.5-8.0)
--- OUTSIDE RECORDS SUMMARY | 2024-10-21 16:59 | XMS_ITS | Encounter Summary ---
Author Organization [employer] [facility] Address [address] [facility] [address] [place] [address] Care Team Providers Care Filter Machine Operator Name Role Phone Unavailable Primary Care Provider Unavailabl e Encounter Details Date Type Department Care Team (Latest Contact Info) Description 07/22/2020 Abstract [facility] CONVERSIONS Dental, Provider, DDS Social History [...] Description 02/11/2025 10:00 AM EDT Office Visit [facility] ADULT DENTAL [address] [place] [address] Luis Carlos Doearis [address] [place] [address] documented as of this encounter Visit Diagnoses Not on filedocumented in this encounter
== END 2024-10-21 14:10 | disposition home or self-care (01) ==
LOC: HO.LAB 14:09
PROVIDERS: PCP Internal Medicine; Visit Provider Physician Assistant Medical
DX: B35.1 Tinea unguium (principal)
CPT/HCPCS: 36415; 80076; 85025; 99202

== ENCOUNTER 2024-10-21 14:46 | Outpatient (AMB) | payer OTHER, SELFPAY ==
--- NOTE | 2024-10-21 14:52 | A.OFFVIS_ITS ---
Vital Signs 10/21/24 15:00 Height 6 ft Weight 185 lb BMI 25.1 BP 117/70 Blood Pressure Location Rt brachial Position Sitting Pulse 79 Intake Visit Reasons: Hernia Intake Note: Patient referred by pcp Dr. David Garrison for Lt inguinal hernia. First noticed 5-6yrs ago. Reports hx of umbilical hernia repair as a child. Patient c/o: hernia becoming bothersome. Tenderness area after heavy lifting. 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 He has had this reducible mass in the left groin for over 5 years. He was seen by a surgeon before but he says the hernia was not bothering him then. Furthermore, he had problems with depression and was also starting a new job at that time so he did not go for surgical intervention. He says that the hernia has been starting to bother him. Furthermore, he feels that this has become bigger so he wants to proceed with repair. He says he is healthy otherwise. [facility] Medical History (Updated 10/21/24 @ 15:20 by Christopher Cat MD) Reducible left inguinal hernia Physical exam Changes in vision Hypertriglyceridemia Overweight (BMI 25.0-29.9) GERD (gastroesophageal reflux disease) Spondylosis of lumbar spine Rash COVID-19 Myofascial pain syndrome of thoracic spine Myofascial pain syndrome Surgical History History of appendectomy Family History Mother Arthritis Hypertension Father No problems noted. 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 Current occupational exposures/hazards: No Cognitive needs: No Hearing needs: No Vision needs: No Review of Systems Const Denies chills and Denies fever(s) Card Denies chest pain, Denies dyspnea and Denies dyspnea on exertion Resp Denies cough, Denies dyspnea and Denies dyspnea on exertion GI Denies hematochezia and Denies change in bowel habits Denies hematuria and Denies difficulty urinating Musc Denies back pain and Denies limited range of motion Neuro Denies focal weakness and Denies convulsions Psych Denies depression and Denies mood swings Physical Exam Vital Signs: Last Vital Signs Pulse 79 10/21/24 15:00 BP 117/70 10/21/24 15:00 BMI result Body Mass Index 25.1 Const General: comfortable and no acute distress Orientation/consciousness: patient oriented x3 Neck Neck: Yes no lymphadenopathy Resp Auscultation: clear to auscultation bilaterally Cardio Rhythm: regular rhythm GI Other: Left inguinal hernia, reducible Palpation (GI): Soft to palpation, nontender and no guarding Neuro General: patient oriented x3 Assessment & Plan Assessment & Plan (1) Reducible left inguinal hernia: Code(s): K40.90 - Unilateral inguinal hernia, without obstruction or gangrene, not specified as recurrent Category: Medical Plan: He has a left inguinal hernia, with worsening symptoms. He wants to proceed with the repair. I had a long discussion with him about the technique of repair with mesh. I reviewed the risks including but not limited to bleeding, infections, injury to other organs including bowel and the vas deferens, recurrence, postop pain, as well as the benefits and alternatives. I also explained to him what to expect postoperatively He says he understands and wants to proceed. His was with him during the visit. Coding Level of Care Code New Pt Level 3 (07613) Diagnoses Reducible left inguinal hernia K40.90
[2024-10-21 15:00] VITALS: BP 117/70; PULSE 79; BMI 25.1
== END 2024-10-21 15:18 | disposition home or self-care (01) ==
LOC: HO.HGS 14:47
PROVIDERS: PCP Internal Medicine; Visit Provider Surgery
DX: K40.90 Unilateral inguinal hernia, without obstruction or gangrene, not specified as recurrent (principal)
CPT/HCPCS: 99203

== ENCOUNTER 2024-11-03 08:40 | Outpatient (AMB) | payer OTHER, SELFPAY ==
--- NOTE | 2024-11-03 08:42 | A.OFFPC_ITS ---
Vital Signs 11/03/24 08:43 Height 6 ft Weight 182 lb BMI 24.7 BP 110/80 Blood Pressure Location Lt brachial Position Sitting Pulse 83 Pulse Source Pulse Oximeter Temp 98.5 F Temp Source Oral Pulse Oximetry (%) 97 Oxygen Delivery Method Room Air Intake Visit Reasons: [facility] 11/18 hernia Principal Web Developer Required: Yes Principal Web Developer Name: robb Accompanied by: Self / Same As Patient Allergies No Known Allergies (No Known Allergies*) Allergy (Verified 11/03/24 08:54) Medication List - Last Reconciled 11/03/24 by KOLBY Licona cetirizine (Zyrtec) 10 mg PO DAILY PRN escitalopram oxalate 10 mg PO DAILY fenofibrate nanocrystallized 145 mg PO DAILY 90 days pantoprazole 40 mg PO BID polyethylene glycol 3350 (Miralax) 17 grams PO DAILY pregabalin 100 mg PO BID 30 days sucralfate (Carafate) 1 g PO DAILY tramadol 50 mg PO BID PRN 30 days Tobacco use date assessed: 11/03/24 Dental Screening Dental Screen Date: 11/03/24 Did you have a dental visit in the last 12 months?: Yes Did you have a dental problem in the last 6 months where you did not have access to dental care?: No Was dental information given to patient?: Patient has dentist HPI [facility] 11/18 hernia HPI Details The patient is a 49-year-old male. Patient of Dr. Hernandez, last seen in office on 09/24/2024 Patient is presenting today with the need for preoperative evaluation for left groin hernia repair. Patient reports having a left inguinal hernia for about 5 years now. Reports that this has started to be more bothersome on and off. He reports a vibration in the area when he passes gas. Surgeon for a/location: Dr. Cat at [facility] General Surgery, [facility] Date: 11/18/2024 Anesthesia: Mac. The patient reports having an appendectomy in the past and more recent on colonoscopy under similar anesthesia without any issues. The patient denies any post surgery hypothermia or clotting disorder and he is not on any blood thinners. Medical history is significant for spondylosis of the lumbar spine, GERD, hypertriglyceridemia, anxiety, myofascial pain syndrome of thoracic spine, overweight, left groin hernia Patient denies chest pain, shortness of breath, heart palpitation or dizziness. Denies abdominal pain or change in bowel habits. Denies any urinary symptoms. Reports chronic lower back pain that is managed with pregabalin 100 mg b.i.d. and tramadol 50 mg b.i.d. p.r.n. High triglycerides is managed with fenofibrate 145 mg daily The patient has a recent CBC on file, will send him for BMP at assess his electrolyes, INR to check is coagulability. EKG was ordered as well. [facility] Medical History (Updated 11/03/24 @ 09:11 by KOLBY Licona) Reducible left inguinal hernia Physical exam Changes in vision Hypertriglyceridemia Overweight (BMI 25.0-29.9) GERD (gastroesophageal reflux disease) Spondylosis of lumbar spine Rash COVID-19 Myofascial pain syndrome of thoracic spine Myofascial pain syndrome Surgical History History of appendectomy Family History Mother Arthritis Hypertension Father No problems noted. 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 1. Little interest or pleasure in doing things: not at all 2. Feeling down, depressed, or hopeless: not at all 3. Trouble falling or staying asleep, or sleeping too much: not at all 4. Feeling tired or having little energy: not at all 5. Poor appetite or overeating: not at all 6. Feeling bad about yourself - or that you are a failure or have let yourself or your family down: not at all 7. Trouble concentrating on things, such as reading the newspaper or watching television: not at all 8. Moving or speaking so slowly that other people could have noticed. Or the opposite - being so fidgety or restless that you have been moving around a lot more than usual: not at all 9. Thoughts that you would be better off or of hurting yourself in some way: not at all Total score: 0 Depression Screening Interpretation: Negative Depression Screening Done: Yes Source: Developed by Drs. Dejuan Amador, Leta Calderon, Dieter Sarah and colleagues, with an educational abhay from [employer]. Thrive Questionnaire Date Thrive assessed: 11/03/24 I am a: Patient What is your living situation today?: I have a steady place to live Within the past 12 months, did the food you bought not last and you didn't have the money to get more?: I choose not to answer this question Within the past 12 months, did you worry whether your food would run out before you got money to buy more?: I choose not to answer this question Do you have trouble paying for medicines?: No Do you have trouble getting transportation to medical appointments?: No Do you have trouble paying your heating and electricity bill?: No Do you have trouble taking care of your child, family member or friend?: No Do you have trouble with day-to-day activities such as bathing, preparing meals, shopping, managing finances, etc.?: No Are you currently unemployed and looking for a job?: No Are you interested in more education?: I choose not to answer this question Please select the resources that you would like help with: Job search/training Currently or been in a relationship where the following occur: No concerns reported THRIVE Score: 0 AUDIT C Alcohol Use Questionnaire (AUDIT-C) 1. How often do you have a drink containing alcohol?: Never 3. How often do you have six or more drinks on one occasion?: Never Total Score: 0 Score Reviewed/Action Taken: No JESSICA-7 AMB Questionnaire JESSICA-7 Date JESSICA - 7 assessed: 11/03/24 Feeling nervous, anxious, or on edge: 0 = Not at all Not being able to stop or control worryin = Not at all Worrying too much about different things: 0 = Not at all Trouble relaxin = Not at all Being so restless that it is hard to sit still: 0 = Not at all Becoming easily annoyed or irritable: 0 = Not at all Feeling afraid as if something awful might happen: 0 = Not at all Total JESSICA-7 score (0-4 normal; 5-9 mild; 10-14 moderate; 15-21 severe): 0 Source: Developed by Drs. Dejuan Amador, Leta Calderon, Dieter Sarah and colleagues, with an educational abhay from [employer]. Review of Systems Const Denies headache(s) Eyes Denies loss of vision ENT Denies vertigo, Denies dizziness, Denies headache(s) and Denies sore throat Card Denies chest pain, Denies leg edema and Denies lightheadedness Resp Denies cough, Denies hemoptysis and Denies wheezing GI Denies abdominal pain, Denies melena, Denies constipation, Denies diarrhea and Denies vomiting Denies dysuria, Denies urinary frequency, Denies urinary urgency and Reports other (left groin hernia) Musc Reports back pain (chronic), Denies arthralgias, Denies joint swelling, Denies numbness and Denies tingling Neuro Denies Abnormal speech present, Denies behavioral changes, Denies vertigo, Denies dizziness, Denies headache(s), Denies loss of vision, Denies memory loss, Denies numbness and Denies tingling Psych Reports anxiety, Denies behavioral changes, Denies depression, Denies memory l oss and Denies panic attacks Wiley/Lymph Denies easy bleeding and Denies easy bruising Aller/Immun Denies wheezing Physical exam (Primary Care) Vital Signs: Last Vital Signs Temp 98.5 F 11/03/24 08:43 Pulse 83 11/03/24 08:43 BP 110/80 11/03/24 08:43 Pulse Ox 97 11/03/24 08:43 Oxygen Delivery Method Room Air 11/03/24 08:43 BMI result Body Mass Index 24.7 Tobacco/Smoking Status: Tobacco use Status Tobacco use date assessed 11/03/24 11/03/24 08:48 Patient Tobacco Use Status Never used Tobacco 11/03/24 08:42 Tobacco use type 10/30/24 12:29 e-Cigarette/Vaping Use Never Used 11/03/24 08:42 PHQ-9: PHQ-9 Score PHQ-9: Total score 0 11/03/24 15:33 Depression Screening Interpretation: Negative Thrive Assessment: Date of Thrive Assessment Date Thrive assessed 11/03/24 11/03/24 08:48 Currently or been in a relationship where the following occur: No concerns reported Const General: healthy appearing, no acute distress, alert and awake Nutritional Appearance: well nourished Orientation/consciousness: oriented to person, oriented to place and oriented to time HENMT Ears: TM's normal bilaterally General nose exam: Normal nasal mucous membranes and turbinates present Eyes Conjunctivae: conjunctivae normal Sclerae: sclerae normal Pupils: Equal, round and reactive pupils present Neck Neck: Yes no lymphadenopathy and Yes no JVD Thyroid: Thyroid normal Carotids: no bruits Resp Effort & Inspection: normal respiratory effort and not tachypneic Auscultation: no crackles, no rales, no rhonchi and no wheezes Cardio Rate: regular rate Rhythm: regular rhythm Heart sounds: no murmurs and normal S1 and S2 GI Palpation (GI): Soft to palpation, nontender, no hepatomegaly and no splenomegaly Auscultation: normal bowel sounds Scrotum: inguinal hernia on the left Back/Spine/Pelvis Thoracic/Lumbar Spine: No lumbar spinal tenderness Skin General skin exam: no rashes or lesions noted and dry skin Neuro General: oriented to person, oriented to place and oriented to time Cranial nerves: Yes Equal, round and reactive pupils present Speech: No Abnormal speech present Gait exam (Neuro): Normal gait present Motor exam (neuro): no tremor noted Extrem Right upper extremity: full ROM Left upper extremity: full ROM Right lower extremity: full ROM; no edema Left lower extremity: full ROM; no edema Psych Mental Status: mental status grossly normal Speech and movement: Normal speech and movement present Affect: normal affect Attitude: cooperative Thought process: Normal thought process present Results Reviewed Results Reviewed: Laboratory Tests 10/21/24 11/03/24 14:21 12:54 WBC 6.2 RBC 5.32 Hgb 15.6 Hct 45.1 MCV 84.8 MCH 29.3 MCHC 34.6 RDW 12.0 Plt Count 302 D MPV 9.5 Immature Gran % (Auto) 0.5 H Neut % (Auto) 64.5 Lymph % (Auto) 24.9 [place] % (Auto) 8.5 PT 11.9 INR 1.0 Sodium 141 Potassium 3.7 Chloride 107 Carbon Dioxide 25 Anion Gap 13 BUN 21 H Creatinine 1.11 Estimated GFR > 60 Random Glucose 115 Calcium 9.7 Coding Level of Care Code Est Pt Level 3 (58473) Diagnoses Preoperative clearance Z01.818 Left inguinal hernia K40.90 Anxiety F41.9 Hypertriglyceridemia E78.1 Spondylosis of lumbar spine M47.816 Time Spent (min) 34 Assessment & Plan Assessment & Plan (1) Preoperative clearance: Code(s): Z01.818 - Encounter for other preprocedural examination Category: Medical Plan: . Regarding preop clearance, the patient is at acceptable risk for proposed surgery. Recent labs is good standing and EKG sinus rhythm. Reviewed with the patient that no surgery is completely free of risk and that this examination is to assist the surgeon in reviewing informed consent. (2) Left inguinal hernia: Code(s): K40.90 - Unilateral inguinal hernia, without obstruction or gangrene, not specified as recurrent Category: Medical Plan: Reducible left groin hernia. The pain in office but reports on and off bothersome discomfort. Plans for surgical intervention on 11/18/[address] Cat. (3) Anxiety: Code(s): F41.9 - Anxiety disorder, unspecified Category: Medical Plan: Encourage CPT Continue escitalopram oxalate 10 mg daily Denies SI/HI (4) Hypertriglyceridemia: Code(s): E78.1 - Pure hyperglyceridemia Category: Medical Plan: tri 194, t-chol 192, ldl 105, hdl 49, 06/2024 Reinforced low-cholesterol diet Continue fenofibrate 145 mg daily (5) Spondylosis of lumbar spine: Code(s): M47.816 - Spondylosis without myelopathy or radiculopathy, lumbar region Category: Medical Plan: MRI of the lumbar spine showed L1-L5. L5-S1 diffusely bulging disc no canal stenosis partial effacement of perineural fat with mass effect on both L5 foraminal nerve roots Chronic back pain managed with pregabalin 100 mg b.i.d. and tramadol 50 mg b.i.d. p.r.n. Orders: Orders Basic Metabolic Panel Today Z01.818 - Encounter for other preprocedural exam ination Prothrombin Time INR Today Z01.818 - Encounter for other preprocedural examination ECG 12 lead EKG Today Z.818 - Encounter for other preprocedural examination
[2024-11-03 08:43] VITALS: BP 110/80; PULSE 83; TEMP 36.9; O2SAT 97; BMI 24.7
--- OUTSIDE RECORDS SUMMARY | 2024-11-03 08:59 | XMS_ITS | Encounter Summary ---
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
== END 2024-11-03 09:25 | disposition home or self-care (01) ==
LOC: HO.HMCH 08:41
PROVIDERS: PCP Internal Medicine
DX: Z01.818 Encounter for other preprocedural examination (principal); K40.90 Unilateral inguinal hernia, without obstruction or gangrene, not specified as recurrent; F41.9 Anxiety disorder, unspecified; E78.1 Pure hyperglyceridemia; M47.816 Spondylosis without myelopathy or radiculopathy, lumbar region

== ENCOUNTER → 2024-11-03 08:40 | Outpatient (BNVA) | payer OTHER, SELFPAY | PROVIDERS: PCP Internal Medicine | DX: Z01.818 Encounter for other preprocedural examination (principal); K40.90 Unilateral inguinal hernia, without obstruction or gangrene, not specified as recurrent; M47.816 Spondylosis without myelopathy or radiculopathy, lumbar region; K21.9 Gastro-esophageal reflux disease without esophagitis; F41.9 Anxiety disorder, unspecified; M79.18 Myalgia, other site; E78.1 Pure hyperglyceridemia | CPT/HCPCS: 99212 ==

== ENCOUNTER → 2024-11-03 12:47 | Outpatient (BNV) | payer OTHER, SELFPAY | PROVIDERS: PCP Internal Medicine; Visit Provider Internal Medicine | DX: Z01.810 Encounter for preprocedural cardiovascular examination (principal) | CPT/HCPCS: 93010 ==

== ENCOUNTER 2024-11-18 08:02 | Day surgery (SDC) | payer OTHER, SELFPAY ==
--- NOTE | 2024-11-03 12:47 | ECG_ITS ---
Test Reason : PREOP Blood Pressure : */* mmHG Vent. Rate : 83 BPM Atrial Rate : 83 BPM P-R Int : 146 ms QRS Dur : 94 ms QT Int : 380 ms P-R-T Axes : 70 46 41 degrees QTcB Int : 446 ms Normal sinus rhythm Normal ECG No previous ECGs available Referred By: Ulises Sands Electronically Signed By: CHIQUI COHN
[2024-11-03 13:17] LABS: INTERNATIONAL NORM RATIO 1.0 (0.9-1.1); Prothrombin Time 11.9 SEC (10.9-12.4)
[2024-11-03 13:29] LABS: Anion Gap 13 (12-20); Blood Urea Nitrogen 21 mg/dL (9-16); Calcium 9.7 mg/dL (8.4-10.2); Carbon Dioxide 25 mmol/L (22-29); Chloride 107 mmol/L (96-108); Estimated Glomerular Filt Rate > 60; Potassium 3.7 mmol/L (3.3-5.1); Sodium 141 mmol/L (135-145)
[2024-11-13 15:41] VITALS: BMI 24.7
--- NOTE | 2024-11-17 09:01 | P.CONAN_ITS ---
Documented by User: Linda Elam NP 11/17/24 09:02 HPI - Anesthesia Eval Consult details Narrative: 49yo M for Left Hernia Inguinal Reducible with mesh Medically optimized per PCP [facility] Active Problems Active Problems: All Active Problems Preoperative clearance (Acute) Anxiety (Acute) Left inguinal hernia (Acute) Onychomycosis (Acute) Transverse melanonychia (Acute) Change in nail appearance (Acute) Physical exam (Acute) Encounter for screening colonoscopy (Acute) Right tennis elbow (Acute) Rib pain on left side (Acute) Right elbow pain (Acute) Atopic dermatitis (Acute) Xerosis of skin (Acute) Reducible left inguinal hernia (Acute) Physical exam (Acute) Changes in vision (Acute) Hypertriglyceridemia (Acute) Overweight (BMI 25.0-29.9) (Acute) GERD (gastroesophageal reflux disease) (Acute) Spondylosis of lumbar spine (Acute) Rash (Acute) COVID-19 (Acute) Myofascial pain syndrome of thoracic spine (Acute) Myofascial pain syndrome (Acute) Past Medical History Medical History Reducible left inguinal hernia Physical exam Changes in vision Hypertriglyceridemia Overweight (BMI 25.0-29.9) GERD (gastroesophageal reflux disease) Spondylosis of lumbar spine Rash COVID-19 Myofascial pain syndrome of thoracic spine Myofascial pain syndrome Family History Family History Mother Arthritis Hypertension Father No problems noted. 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 Current occupational exposures/hazards: No Cognitive needs: No Hearing needs: No Vision needs: No Meds Allergies Allergy/AdvReac Type Severity Reaction Status Date / Time No Known Allergies (No Known Allergy Verified 11/03/24 08:54 Allergies*) Home Medications ?Medication ?Instructions ?Recorded ?Confirmed ?Last Taken ?Type escitalopram oxalate 10 mg tablet 10 mg PO DAILY 09/2611/03/24 Unknown History Exam Height,Weight and Vital Signs: Height 6 ft Weight 82.554 kg Pertinent Lab Results Pertinent Lab Results: Laboratory Tests 11/03/24 12:54 PT 11.9 INR 1.0 Sodium 141 Potassium 3.7 Chloride 107 Carbon Dioxide 25 Anion Gap 13 BUN 21 H Creatinine 1.11 Estim Creat Clear Calc TNP Estimated GFR > 60 Random Glucose 115 Calcium 9.7 Laboratory Tests 10/21/24 14:21 WBC 6.2 Hgb 15.6 Hct 45.1 Plt Count 302 D Narrative Narrative: EKG 10/2024 Vent. Rate : 83 BPM Atrial Rate : 83 BPM P-R Int : 146 ms QRS Dur : 94 ms QT Int : 380 ms P-R-T Axes : 70 46 41 degrees QTcB Int : 446 ms Normal sinus rhythm Normal ECG No previous ECGs available Assessment and Plan Assessment Anesthesia Assessment: Chart Reviewed Final Anesthetic Review Family History of Problems with Anesthesia: No History of Problems with Anesthesia: No Documented by User: Fitz Brunson MD 11/18/24 08:23 [facility] Past Medical History Medical History Reducible left inguinal hernia Physical exam Changes in vision Hypertriglyceridemia Overweight (BMI 25.0-29.9) GERD (gastroesophageal reflux disease) Spondylosis of lumbar spine Rash COVID-19 Myofascial pain syndrome of thoracic spine Myofascial pain syndrome Functional capacity: independent ambulation Family History Family History Mother Arthritis Hypertension Father No problems noted. 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 Current occupational exposures/hazards: No Cognitive needs: No Hearing needs: No Vision needs: No Meds Allergies Allergy/AdvReac Type Severity Reaction Status Date / Time No Known Allergies (No Known Allergy Verified 11/03/24 08:54 Allergies*) Home Medications ?Medication ?Instructions ?Recorded ?Confirmed ?Last Taken ?Type escitalopram oxalate 10 mg tablet 10 mg PO DAILY 09/2611/03/24 Unknown History Exam Airway Mallampati Class: I TM Dist: >3cm Neck ROM: Full Loose/Missing/Broken Teeth: No (normal dentition) Heart: RRR Lungs: CTA Other: normal cognition and orientation Assessment and Plan Assessment Anesthesia Assessment: Anesthesia Plan Discussed and Chart Reviewed Final Anesthetic Review NPO: Yes ASA Class: I and II (ASA2) Final Preanesthetic Review: No Changes in Pt Med Stat, Meds/Allgs Chart Reviewed, Consent Obtained/Reviewed and Anes Risks/Benef Reviewed Patient Risk: Low Procedure Risk: Low Anesthetic Plan Anesthetic Plan: GA Disposition: Standard PACU
[2024-11-18 08:08] VITALS: BMI 24.3
[2024-11-18 08:23] VITALS: BP 122/50; PULSE 84; RESP 16; TEMP 36.8; O2SAT 94
[2024-11-18] MEDS: Lactated Ringers 1,000 ML 100 ML IVCONT (08:38)
--- NOTE | 2024-11-18 08:42 | MHC.SHP ---
Pre-Procedural Eval Section A - 24 Hr Update-Section A only Date of Service: 11/18/24 The patient is an INPATIENT: No Changes since office visit: No Cold of Flu in the past 2 weeks, No New Medical Problems, No Changes in Medication and No Patient answered all questions The patient has been examined within 24 hours of the surgical procedure. The History & Physical has been completed within 30 days and I have reviewed it.: Yes Section B - Complete if H&P > 30 days Chief Complaint: Unilateral inguinal hernia, without obstruction Allergies: Allergies Allergy/AdvReac Type Severity Reaction Status Date / Time No Known Allergies (No Known Allergy Verified 11/03/24 08:54 Allergies*) Plan I have reviewed the history and physical and performed a pertinent physical examination on my patient. No changes have occurred unless specified. Time Spent With Patient Time: Total time managing care of this patient today ____ minutes.
--- NOTE | 2024-11-18 09:48 | P.OP_ITS ---
Operative Note Operative Note Date of Service: 11/18/24 Narrative: Preop diagnosis: Left inguinal hernia, reducible Postop diagnosis: Left inguinal hernia, reducible, direct Procedure: Repair of left inguinal hernia with mesh Surgeon: Christopher Cat MD patient services assistant: ADI Carrizales The patient is a 49-year-old male with a reducible mass in the left groin consistent with a left inguinal hernia. He understood the technique of the planned procedure as well as the risks, benefits, and alternatives. He was brought to the operating room. He was placed supine under general anesthesia via laryngeal mask airway. The left groin was prepped and draped usual sterile fashion. A surgical time-out was done. The patient received cefazolin 2 g IV preop I infiltrated the planned line of incision with lidocaine 1%. I made a short incision on the skin along an imaginary line from the anterior superior iliac spine to the pubic ramus with a blade 15. This carried down through the full- thickness of the skin and subcutaneous fat with electrocautery. The external oblique aponeurosis was exposed. The external ring was identified. I opened up the external ring by making short incision to enter the inguinal canal. Hemostats were applied on the divided edges. The hernia was seen and this seemed to contain only fat. I proceeded to do blunt dissection of the underside of the external oblique aponeurosis to create a pocket for the mesh. I then proceeded to bluntly dissect the cord and its contents with my index finger until was able to pass a [place] drain around this. The Bonnie drain was used for retraction. I the hernia from the rest of the cord contents. The vas deferens and the accompanying vessels were identified and were protected The hernia was completely from the cord. This appeared to originate from the floor itself and this was consistent with a direct hernia. I was able to reduce the hernia completely. I reinforced this hernia defect with a large size Prolene plug. The plug was secured with Prolene 2 sutures to the shelving edge of the inguinal meant laterally and the internal oblique superiorly medially using the inner leaves of the mesh. I reinforced the entire floor of the canal with a keyhole mesh. The tails of the mesh were passed around the cord at the level of the internal ring was secured together with Prolene 2 sutures. The mesh was secured to the shelving edge of the inguinal meant laterally, the internal oblique superiorly medially, as well as the pubic ramus inferomedially. We irrigated. We moved the [place] drain. We reapposed the external oblique aponeurosis to re-create the external ring, with Prolene 2-0 sutures running fashion. The subcutaneous layer was reapposed with Polysorb 3-0 simple interrupted sutures. Skin closure was achieved with Polysorb 4-0 subcuticular running stitch The incision was infiltrated with Marcaine 0.5% for postop analgesia. Steri- Strips and dressings were applied. The procedure was completed. The patient tolerated the procedure well. There were no immediate complications. Initial and final counts of sponges and instruments were correct. Estimated blood loss was less than 10 cc. The patient was extubated without difficulty and transferred to the recovery room with stable vital signs.
[2024-11-18 10:10] VITALS: BP 115/64; PULSE 74; RESP 16; TEMP 36.1; O2SAT 98
[2024-11-18 10:15] VITALS: BP 110/63; PULSE 74; RESP 14; O2SAT 99
[2024-11-18 10:20] VITALS: BP 114/58; PULSE 70; RESP 14; O2SAT 99
[2024-11-18 10:25] VITALS: BP 108/62; PULSE 80; RESP 16; O2SAT 95
[2024-11-18 10:40] VITALS: BP 127/68; PULSE 69; RESP 16; TEMP 36.2; O2SAT 97
== END 2024-11-18 11:28 | disposition home or self-care (01) ==
PROVIDERS: PCP Internal Medicine; Visit Provider Surgery
PROC: (CPT 49505; principal; 2024-11-18 09:50)
DX: K40.90 Unilateral inguinal hernia, without obstruction or gangrene, not specified as recurrent (principal); K21.9 Gastro-esophageal reflux disease without esophagitis; E78.1 Pure hyperglyceridemia; E66.3 Overweight; Z68.25 Body mass index [BMI] 25.0-25.9, adult; M47.816 Spondylosis without myelopathy or radiculopathy, lumbar region; M79.18 Myalgia, other site; H53.8 Other visual disturbances; F41.9 Anxiety disorder, unspecified; Z79.899 Other long term (current) drug therapy; Z98.890 Other specified postprocedural states
CPT/HCPCS: 49505; 36415; 80048; 85610; 93005; C1781; J0131; J0665; J0690; J1100; J2003; J2405; J2704; J3010

== ENCOUNTER → 2024-11-18 08:02 | Outpatient (BNV) | payer OTHER, SELFPAY | PROVIDERS: PCP Internal Medicine; Visit Provider Surgery | DX: K40.20 Bilateral inguinal hernia, without obstruction or gangrene, not specified as recurrent (principal) | CPT/HCPCS: 49505 ==

== ENCOUNTER 2024-12-01 11:08 | Outpatient (AMB) | payer OTHER, SELFPAY ==
--- NOTE | 2024-12-01 11:19 | A.OFFVIS_ITS ---
Vital Signs 12/01/24 11:27 Weight 187 lb BP 142/77 H Blood Pressure Location Rt brachial Position Sitting Pulse 80 Intake Visit Reasons: S/P LIH w/mesh Intake Note: Patient here s/p repair of left inguinal hernia with mesh. Patient c/o: LLQ tenderness along incision. Taking Ibuprofen as needed. Denies bleeding, oozing. Reports normal BM. Surgery: 11-18-2024 Telecommunications Line Mechanic Required: No Accompanied by: Spouse Allergies No Known Allergies (No Known Allergies*) Allergy (Verified 12/01/24 11:28) HPI HPI S/P LIH w/mesh: Details: He underwent repair of a left inguinal hernia with mesh last 11/18/2024. He is here for postop visit. He denies any significant complaints. He feels well overall. [facility] Medical History Reducible left inguinal hernia Physical exam Changes in vision Hypertriglyceridemia Overweight (BMI 25.0-29.9) GERD (gastroesophageal reflux disease) Spondylosis of lumbar spine Rash COVID-19 Myofascial pain syndrome of thoracic spine Myofascial pain syndrome Surgical History H/O left inguinal hernia repair (11/18/24) Hx of colonoscopy (05/01/24) History of esophagogastroduodenoscopy (EGD) (05/01/24) History of appendectomy Family History Mother Arthritis Hypertension Father No problems noted. 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 Current occupational exposures/hazards: No Cognitive needs: No Hearing needs: No Vision needs: No Review of Systems Const Denies chills and Denies fever(s) Card Denies chest pain and Denies dyspnea Resp Denies dyspnea GI Denies abdominal pain and Denies vomiting Physical Exam Const General: comfortable and no acute distress Resp Effort & Inspection: normal respiratory effort GI Other: Left inguinal hernia repair site is well healed, not infected repair intact Palpation (GI): Soft to palpation, not firm, nontender and no guarding Assessment & Plan Assessment & Plan (1) Left inguinal hernia: Code(s): K40.90 - Unilateral inguinal hernia, without obstruction or gangrene, not specified as recurrent Category: Medical Plan: Status post repair with mesh. He is doing very well. The repair site is intact. The incisions well healed. I advised him to avoid lifting anything more than 20 lb for about 2 more weeks. He can otherwise follow up on a p.r.n. basis. Coding Level of Care Code Global (07181) Diagnoses Left inguinal hernia K40.90
[2024-12-01 11:27] VITALS: BP 142/77; PULSE 80
--- OUTSIDE RECORDS SUMMARY | 2024-12-01 12:18 | XMS_ITS | Encounter Summary ---
Author Organization [employer] [facility] Address [address] [place] [address] Care Team Providers Care Finished Goods Inspector Name Role Phone Unavailable Primary Care Provider Unavailabl e Encounter Details Date Type Department Care Team (Latest Contact Info) Description 07/22/2020 Abstract [facility] CONVERSIONS Dental, Provider, DDS Social History [...] 10:00 AM EDT Office Visit [facility] ADULT DENTAL [address] [place] [address] Luis Carlos Doearis [address] [place] [address] documented as of this encounter Visit Diagnoses Not on filedocumented in this encounter
--- OUTSIDE RECORDS SUMMARY | 2024-12-01 12:18 | XMS_ITS | Clinical Summary ---
Author Organization [facility] it Address [address] [place] [address] Care Team Providers Care Color Weigher Name Role Phone Unavailable Primary Care Provider [...] Vaccine ( - 2023-2 5 season) 2024 Depression Screening 05/14/2024 Influenza Vaccine (#1) 2025 HIB Vaccines Aged Out No longer [...]
== END 2024-12-01 11:32 | disposition home or self-care (01) ==
LOC: HO.HGS 11:09
PROVIDERS: PCP Internal Medicine; Visit Provider Surgery
DX: K40.90 Unilateral inguinal hernia, without obstruction or gangrene, not specified as recurrent (principal)
CPT/HCPCS: 99024

== ENCOUNTER → 2024-12-01 11:08 | Outpatient (BNVA) | payer OTHER, SELFPAY | PROVIDERS: PCP Internal Medicine; Visit Provider Surgery | DX: K40.90 Unilateral inguinal hernia, without obstruction or gangrene, not specified as recurrent (principal); Z98.890 Other specified postprocedural states | CPT/HCPCS: 99212 ==

== ENCOUNTER 2025-01-21 16:16 | Outpatient (AMB) | payer OTHER, SELFPAY ==
--- NOTE | 2025-01-21 16:20 | A.OFFPC_ITS ---
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 Required: No Accompanied by: Self / Same As Patient Allergies No Known Allergies (No Known Allergies*) Allergy (Verified 01/21/25 16:36) Medication List - Last Reconciled 01/21/25 by Vanita Garrison MD cetirizine (Zyrtec) 10 mg PO DAILY PRN escitalopram oxalate 10 mg PO DAILY fenofibrate nanocrystallized 145 mg PO DAILY 90 days ibuprofen 600 mg PO Q6H PRN oxycodone-acetaminophen 5-325 mg 1 tab PO Q6H PRN pantoprazole 40 mg PO BID pregabalin 100 mg PO BID 30 days sucralfate (Carafate) 1 g PO DAILY tramadol 50 mg PO BID PRN 30 days Tobacco use date assessed: 01/21/25 Dental Screening Dental Screen Date: 01/21/25 Did you have a dental visit in the last 12 months?: No Did you have a dental problem in the last 6 months where you did not have access to dental care?: No Was dental information given to patient?: No HPI HPI Comments History of Present Illness Details The patient is a 49-year-old male presenting with hypertriglyceridemia and medication management. The patient has a history of hypertriglyceridemia, with the highest recorded level being 467 mg/dL in 2021. Triglyceride levels have been managed with feno fibrate, which has successfully reduced the levels to below 500 mg/dL, mitigating the risk of pancreatitis. The patient also reports a history of depression with anxiety, for which he is currently taking escitalopram. Additionally, he is on pantoprazole for gastroesophageal reflux disease and Zyrtec for allergic rhinitis. Also has chronic back pain on tramadol which he is aware can cause addiction and sedation. The patient has a history of smoking but has since quit and does not consume alcohol. [facility] Medical History (Updated 01/21/25 @ 20:28 by Vanita Garrison MD) Reducible left inguinal hernia Physical exam Changes in vision Hypertriglyceridemia Overweight (BMI 25.0-29.9) GERD (gastroesophageal reflux disease) Spondylosis of lumbar spine Rash COVID-19 Myofascial pain syndrome of thoracic spine Myofascial pain syndrome Surgical History H/O left inguinal hernia repair (11/18/24) Hx of colonoscopy (05/01/24) History of esophagogastroduodenoscopy (EGD) (05/01/24) History of appendectomy Family History Mother Arthritis Hypertension Father No problems noted. 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 1. Little interest or pleasure in doing things: not at all 2. Feeling down, depressed, or hopeless: not at all 3. Trouble falling or staying asleep, or sleeping too much: not at all 4. Feeling tired or having little energy: not at all 5. Poor appetite or overeating: not at all 6. Feeling bad about yourself - or that you are a failure or have let yourself or your family down: not at all 7. Trouble concentrating on things, such as reading the newspaper or watching television: not at all 8. Moving or speaking so slowly that other people could have noticed. Or the opposite - being so fidgety or restless that you have been moving around a lot more than usual: not at all 9. Thoughts that you would be better off or of hurting yourself in some way: not at all Total score: 0 Depression Screening Interpretation: Negative Depression Screening Done: Yes 77205 - PHQ-9 Billing: Yes Source: Developed by Drs. Dejuan Amador, Leta Calderon, Dieter Sarah and colleagues, with an educational abhay from [employer]. Thrive Questionnaire Date Thrive assessed: 05/21/24 I am a: Patient What is your living situation today?: I have a steady place to live Within the past 12 months, did the food you bought not last and you didn't have the money to get more?: I choose not to answer this question Within the past 12 months, did you worry whether your food would run out before you got money to buy more?: I choose not to answer this question Do you have trouble paying for medicines?: No Do you have trouble getting transportation to medical appointments?: No Do you have trouble paying your heating and electricity bill?: No Do you have trouble taking care of your child, family member or friend?: No Do you have trouble with day-to-day activities such as bathing, preparing meals, shopping, managing finances, etc.?: No Are you currently unemployed and looking for a job?: No Are you interested in more education?: I choose not to answer this question Please select the resources that you would like help with: Job search/training Currently or been in a relationship where the following occur: No concerns reported THRIVE Score: 0 AUDIT C Alcohol Use Questionnaire (AUDIT-C) 1. How often do you have a drink containing alcohol?: Never 3. How often do you have six or more drinks on one occasion?: Never Total Score: 0 Score Reviewed/Action Taken: No JESSICA-7 AMB Questionnaire JESSICA-7 Date JESSICA - 7 assessed: 01/21/25 Feeling nervous, anxious, or on edge: 0 = Not at all Not being able to stop or control worryin = Not at all Worrying too much about different things: 0 = Not at all Trouble relaxin = Not at all Being so restless that it is hard to sit still: 0 = Not at all Becoming easily annoyed or irritable: 0 = Not at all Feeling afraid as if something awful might happen: 0 = Not at all Total JESSICA-7 score (0-4 normal; 5-9 mild; 10-14 moderate; 15-21 severe): 0 Source: Developed by Drs. Deujan Amador, Leta Calderon, Dieter Sarah and colleagues, with an educational abhay from [employer] JESSICA-7 Assessment Billing JESSICA-7 Assessment Tool: JESSICA-7 Assessment 15042 Review of Systems Const All systems reviewed & are unremarkable except as noted in HPI and below Card Denies chest pain at rest, Denies chest pain with activity, Denies edema, Denies irregular heart rhythm, Denies claudication, Denies dyspnea, Denies dyspnea on exertion, Denies orthopnea, Denies paroxysmal nocturnal dyspnea and Denies slow heart rate Resp Denies cough, Denies dyspnea and Denies dyspnea on exertion Physical exam (Primary Care) Vital Signs: Last Vital Signs Pulse 75 01/21/25 16:21 BP 120/82 01/21/25 16:21 Pulse Ox 97 01/21/25 16:21 Oxygen Delivery Method Room Air 01/21/25 16:21 BMI result Body Mass Index 25.4 Tobacco/Smoking Status: Tobacco use Status Tobacco use date assessed 01/21/25 01/21/25 16:22 Patient Tobacco Use Status Former Tobacco user 01/21/25 16:22 Tobacco use type 10/30/24 12:29 e-Cigarette/Vaping Use Never Used 01/21/25 16:22 PHQ-9: PHQ-9 Score PHQ-9: Total score 0 01/21/25 16:41 Depression Screening Interpretation: Negative Thrive Assessment: Date of Thrive Assessment Date Thrive assessed 05/21/24 01/21/25 16:22 Currently or been in a relationship where the following occur: No concerns reported Resp Effort & Inspection: normal respiratory effort Auscultation: clear to auscultation bilaterally Cardio Jugular venous distension: no JVD Rate: regular rate Rhythm: regular rhythm Heart sounds: S1 normal heart sound present and S2 normal heart sound present Extrem General: Yes full ROM Coding Level of Care Code Est Pt Level 4 (51063) Complex EM visit Add On G2211 Diagnoses Mild recurrent major depression F33.0 Anxiety F41.9 Hypertriglyceridemia E78.1 Gastroesophageal reflux disease with esophagitis without hemorrhage K21.00 Esophagitis presence: with esophagitis Esophagitis bleeding: without hemorrhage Spondylosis of lumbar spine M47.816 Additional Codes JESSICA-7 Assessment Billing - JESSICA-7 Assessment Tool: JESSICA-7 Assessment 17701 ([id number]) PHQ-9 - 93331 - PHQ-9 Billing: Yes ([id number]) Time Spent (min) 24 Assessment & Plan Assessment & Plan (1) Mild recurrent major depression: Code(s): F33.0 - Major depressive disorder, recurrent, mild Category: Medical (2) Anxiety: Code(s): F41.9 - Anxiety disorder, unspecified Category: Medical (3) Hypertriglyceridemia: Code(s): E78.1 - Pure hyperglyceridemia Category: Medical (4) GERD (gastroesophageal reflux disease): Code(s): K21.9 - Gastro-esophageal reflux disease without esophagitis Category: Medical Qualifiers: Esophagitis presence: with esophagitis Esophagitis bleeding: without hemorrhage Qualified Code(s): K21.00 - Gastro-esophageal reflux disease with esophagitis, without bleeding (5) Spondylosis of lumbar spine: Code(s): M47.816 - Spondylosis without myelopathy or radiculopathy, lumbar region Category: Medical Plan Plan Patient was informed and verbally consented to the use of an ambient scribe for clinic note documentation during this visit. 1. Pure hyperglyceridemia E78.1 The patient's triglyceride levels have been managed with fenofibrate, which has successfully reduced the levels to below 500 mg/dL, mitigating the risk of pancreatitis. It is recommended to continue monitoring triglyceride levels and reassess the need for fenofibrate in May. 2. Other specified anxiety disorders F41.8 The patient is currently taking escitalopram for depression with anxiety, and the condition appears to be well-managed with this medication. 3. Gastro-esophageal reflux disease without esophagitis K21.9 The patient is taking pantoprazole for gastroesophageal reflux disease, which is part of his current medication regimen. 4. Allergic rhinitis, unspecified J30.9 The patient uses Zyrtec as needed for allergic rhinitis, which is currently under control. 5. Spondylosis without myelopathy or radiculopathy, lumbar region M47.816 Continue Tramadol prn Orders: Orders Lipid Panel 4 Months E78.5 - Hyperlipidemia, unspecified Comprehensive [place]. Panel Fast 4 Months E78.1 - Pure hyperglyceridemia Medications: Discontinued oxycodone-acetaminophen 5-325 mg Partial Fill upon patient request. Discontinued Reason: Patient Completed Course 1 tab PO Q6H PRN 20 tabs 0RF pain fenofibrate nanocrystallized Discontinued Reason: Patient Completed Course 145 mg PO DAILY 90 days 90 tabs 1RF E78.1 - Pure hyperglyceridemia
[2025-01-21 16:21] VITALS: BP 120/82; PULSE 75; O2SAT 97; BMI 25.4
--- OUTSIDE RECORDS SUMMARY | 2025-01-21 18:40 | XMS_ITS | Encounter Summary ---
Author Organization [employer] [facility] Address [address] [place] [address] Care Team Providers Care Lining Brusher Name Role Phone Unavailable Primary Care Provider Unavailabl e Encounter Details Date Type Department Care Team (Latest Contact Info) Description 10/14/2021 Abstract [facility] CONVERSIONS Dental, Provider, DDS Social History [...] Team (Late st Contact Info) Description 02/11/2025 10:15 AM EDT Office Visit [facility] ADULT DENTAL [address] [place] [address] Luis Carlos Doearis [address] [place] [address] documented as of this encounter Visit Diagnoses Not on filedocumented in this encounter
--- OUTSIDE RECORDS SUMMARY | 2025-01-21 18:40 | XMS_ITS | Clinical Summary ---
Author Organization [facility] it Address [address] [place] [address] Care Team Providers Care Gas Reverser Name Role Phone Unavailable Primary Care Provider [...] 2023 Zoster Vaccines (1 of 2) 2023 Depression Screening 05/14/2024 COVID-19 Vaccine (1 - 2023-2 5 season) 2025 Influenza Vaccine (#1) 2025 HIB Vaccines Aged [...]
--- OUTSIDE RECORDS SUMMARY | 2025-01-21 18:40 | XMS_ITS | Encounter Summary ---
Author Organization [employer] [facility] Address [address] [place] [address] Care Team Providers Care Public Stenographer Name Role Phone Unavailable Primary Care Provider Unavailabl e Encounter Details Date Type Department Care Team (Latest Contact Info) Description 07/22/2020 Abstract [facility] CONVERSIONS Dental, Provider, DDS Social History [...] Description 02/11/2025 10:15 AM EDT Office Visit [facility] ADULT DENTAL [address] [place] [address] Luis Carlos Doearis [address] [place] [address] documented as of this encounter Visit Diagnoses Not on filedocumented in this encounter
--- OUTSIDE RECORDS SUMMARY | 2025-01-21 18:41 | XMS_ITS | Clinical Summary ---
Author Organization [employer] Address [address] [facility] [address] [place] [address] Care Team Providers Care Wheel Mill Operator Name Role Phone Unavailable Primary Care [...] exam 01/23/2024 Dental plaque 12/12/2023 Fractured dental judaism with loss of materi al 02/05/2023 Dental calculus 06/28/2022 Social History Tobacco Use Types Packs/Day Years [...] 10:15 AM EDT Office Visit [facility] [address] [place] [address] [address], [address] [place] [address] Health Maintenance Due Date Last Done Comments CT Colonography 1973 Colonoscopy 1973 Colorectal Cancer Screening 1973 Depression Screening 1973 FIT DNA/Cologuard 1973 FIT 1973 FOBT 1973 HIV Screening 1973 Lipid Panel 1973 SDOH Screening 1973 Sigmoidoscopy 1973 Disability Screening 1973 Alcohol/Substance Use Screening 1985 Family Planning (PISQ) 1988 Hepatitis C Screening 1991 Hepatitis B Vaccines (1 of 3 - 19+ 3-dose series) 1992 Pneumococcal Vaccine: 50+ Years (1 of 1 - PCV) 2023 Zoster Vaccines (1 of 2) 2023 Dental X-Ray: Full Mouth 10/15/2024 10/14/2021 COVID-19 Vaccine ( season) 2025 11/11/2021, 06/15/2021, 05/25/2021 Influenza Vaccine (#1) 2025 03/06/2016 Dental Oral Exam 02/07/2025 08/06/2024, , 02/05/2023, [...] Procedure Name Priority Date/Time Associated Diagnosis Comments PROPHYLAXIS - ADULT Routine 08/06/2024 1 1:00 AM EDT Dental plaque BITEWINGS - 4 RADIOGRAPHIC IMAGES Routine 08/06/2024 11:00 AM EDT Dental plaque PERIODIC ORAL EVALUATION - ESTABLISHED PATIENT Routine 08/06/2024 11:00 AM EDT from Last 3 Months or Most Recently Relevant to Health Maintenance Insurance [facility] - HSN PARTIAL (MEDICAID)
== END 2025-01-21 16:51 | disposition home or self-care (01) ==
LOC: HO.HMCH 16:17
PROVIDERS: PCP Internal Medicine; Visit Provider Internal Medicine
DX: F33.0 Major depressive disorder, recurrent, mild (principal); F41.9 Anxiety disorder, unspecified; E78.1 Pure hyperglyceridemia; K21.00 Gastro-esophageal reflux disease with esophagitis, without bleeding; M47.816 Spondylosis without myelopathy or radiculopathy, lumbar region

== ENCOUNTER → 2025-01-21 16:16 | Outpatient (BNVA) | payer OTHER, SELFPAY | PROVIDERS: PCP Internal Medicine; Visit Provider Internal Medicine | DX: F33.0 Major depressive disorder, recurrent, mild (principal); F41.8 Other specified anxiety disorders; E78.1 Pure hyperglyceridemia; K21.00 Gastro-esophageal reflux disease with esophagitis, without bleeding; M47.816 Spondylosis without myelopathy or radiculopathy, lumbar region; J30.9 Allergic rhinitis, unspecified; Z13.31 Encounter for screening for depression; Z13.39 Encounter for screening examination for other mental health and behavioral disorders | CPT/HCPCS: 96127; 99212 ==

== ENCOUNTER 2025-04-01 12:09 | Outpatient (REF) | payer OTHER, SELFPAY ==
--- NOTE | ~2025-04-01 | XR_ITS ---
EXAMINATION: XR FOOT, RIGHT CLINICAL INFORMATION: M79.671 - Pain in right foot COMPARISON: None available. TECHNIQUE: AP, lateral, and oblique views of the right foot. FINDINGS: No visible acute fracture or dislocation. Alignment is anatomic. No significant joint space narrowing. No erosions. No abnormal soft tissue calcification. No radiopaque foreign body is identified. XR/XR foot RT min 3V IMPRESSION: No acute osseous findings Electronically signed by: Adarsh Vanessa MD 04/02/2025 11:23 AM JODY
== END 2025-04-01 12:10 | disposition home or self-care (01) ==
LOC: HO.HMGCX 12:09
PROVIDERS: PCP Internal Medicine; Visit Provider Internal Medicine
DX: M79.671 Pain in right foot (principal); B35.1 Tinea unguium
CPT/HCPCS: 73630; 99212

== ENCOUNTER 2025-04-01 12:09 | Outpatient (AMB) | payer OTHER, SELFPAY ==
--- NOTE | 2025-04-01 12:13 | MHC.OFFWIV ---
Intake Vital Signs 04/01/25 12:16 Height 6 ft Weight 187 lb BMI 25.4 BP 108/70 Blood Pressure Location Lt brachial Position Sitting Pulse 86 Pulse Source Pulse Oximeter Pulse Oximetry (%) 96 Oxygen Delivery Method Room Air Intake Visit Reasons: EP-bottom of rt foot pain Intake Note: Patient presents c/o foot pain on the bottom of his right foot x4 days. Patient Tobacco Use Status: Former Tobacco user Allergies No Known Allergies (No Known Allergies*) Allergy (Verified 04/01/25 12:20) Medication List - Last Reconciled 04/01/25 by Ken Wilhelm MD cetirizine (Zyrtec) 10 mg PO DAILY PRN escitalopram oxalate 10 mg PO DAILY ibuprofen 600 mg PO Q6H PRN pantoprazole 40 mg PO BID pregabalin 100 mg PO BID 30 days sucralfate (Carafate) 1 g PO DAILY tramadol 50 mg PO BID PRN 30 days Do you need a note to return to daycare/school/sports/work: Yes HPI EP-bottom of rt foot pain HPI Details History of Present Illness The patient is a 49-year-old male presenting with foot pain. right Foot pain: - The patient has been experiencing foot pain since Sunday. - He has tried taking ibuprofen for the pain, which provided minimal relief. - His job requires him to walk every day. Recurrent fungal toe infection: - The patient reports a history of a fungal infection on his toe that has flared up again. Medications: - Ibuprofen, taken for the current episode of foot pain. Social History: - Employment: The patient's job requires extensive walking; he works from 7 AM to 12 PM. Problem List - Foot pain - Recurrent fungal toe infection Plan - An X-ray of the foot was ordered to evaluate the pain. - A medication was prescribed and sent to the pharmacy for pain management, and the patient was advised to stop taking ibuprofen. - A work excuse for 2-3 days will be provided. - Patient is to follow up with Dr. Hernandez in 10 days if the foot pain does not improve. - A referral to a transportation department head will be arranged for the management of the recurrent fungal toe infection. Review of Systems - General: No fever no chills - Neurological: No headaches no dizziness - Ear nose throat: No sore throat no hearing difficulty no ear pain - Cardiovascular: No syncope, no chest pain, no palpitations - Gastrointestinal: No nausea vomiting or diarrhea Physical Exam General: No acute distress HEENT: No acute findings Neck: Supple Gastrointestinal: No pain Extremities: Foot pain right at the bottom close to first toe base, fungal infection toe nail present PRACTICE MANAGEMENT CONSULTANT: Alert awake oriented x3 motor intact Skin: Normal turgor [facility] Medical History Reducible left inguinal hernia Physical exam Changes in vision Hypertriglyceridemia Overweight (BMI 25.0-29.9) GERD (gastroesophageal reflux disease) Spondylosis of lumbar spine Rash COVID-19 Myofascial pain syndrome of thoracic spine Myofascial pain syndrome Surgical History H/O left inguinal hernia repair (11/18/24) Hx of colonoscopy (05/01/24) History of esophagogastroduodenoscopy (EGD) (05/01/24) History of appendectomy Family History Mother Arthritis Hypertension Father No problems noted. 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 - He has tried taking ibuprofen for the pain, which provided minimal relief. - His job requires him to walk every day. Recurrent fungal toe infection: - The patient reports a history of a fungal infection on his toe that has flared up again. Medications: - Ibuprofen, taken for the current episode of foot pain. Social History: - Employment: The patient's job requires extensive walking; he works from 7 AM to 12 PM. Problem List - Foot pain - Recurrent fungal toe infection Plan - An X-ray of the foot was ordered to evaluate the pain. - A medication was prescribed and sent to the pharmacy for pain management, and the patient was advised to stop taking ibuprofen. - A work excuse for 2-3 days will be provided. - Patient is to follow up with Dr. Hernandez in 10 days if the foot pain does not improve. - A referral to a transportation department head will be arranged for the management of the recurrent fungal toe infection. Orders: Orders XR foot RT 2V Today M79.671 - Pain in right foot Referrals Podiatry Referral B35.1 - Tinea unguium Medications: New indomethacin administer with food or milk 50 mg PO BID 20 caps 0RF 10 days Coding Level of Care Code Est Pt Level 3 (15083) Diagnoses Foot pain, right M79.671 Onychomycosis B35.1
[2025-04-01 12:16] VITALS: BP 108/70; PULSE 86; O2SAT 96; BMI 25.4
--- OUTSIDE RECORDS SUMMARY | 2025-04-01 23:14 | XMS_ITS | Encounter Summary ---
Author Organization [employer] [facility] Address [address] [place] [address] 7 [place] [address] Care Team Providers Care Radioisotope Technologist Name Role Phone Unavailable Primary Care Provider Unavailabl e Encounter Details Date Type Department Care Team (Latest Contact Info) Description 07/22/[address] [facility] CONVERSIONS Dental, Provider, DDS Social History Tobacco [...] Care Team (Late st Contact Info) Description 04/22/2025 1:30 PM EST Office Visit [facility] ADULT DENTAL [address] [place] [address] Brook, Danan [address] [place] [address] 05/01/2025 3:00 PM EST Office Visit [facility] ADULT DENTAL [address] [place] [address] Eliza, Vick, DDS [address] [place] [address] documented as of this encounter Visit Diagnoses Not on filedocumented in this encounter
--- OUTSIDE RECORDS SUMMARY | 2025-04-01 23:14 | XMS_ITS | Encounter Summary ---
Author Organization [employer] [facility] Address [address] [place] [address] 7 [place] [address] Care Team Providers Care Freight Car Loader Name Role Phone Unavailable Primary Care Provider Unavailabl e Encounter Details Date Type Department Care Team (Latest Contact Info) Description 10/14/2021 Abstract [facility] CONVERSIONS Dental, Provider, DDS Social History [...] Description 04/22/2025 1:30 PM EST Office Visit [facility] ADULT DENTAL [address] [place] [address] Brook, Danna [address] [place] [address] 05/01/2025 3:00 PM EST Office Visit [facility] ADULT DENTAL [address] [place] [address] Eliza, Vick, DDS [address] [place] [address] documented as of this encounter Visit Diagnoses Not on filedocumented in this encounter
--- OUTSIDE RECORDS SUMMARY | 2025-04-01 23:14 | XMS_ITS | Clinical Summary ---
Author Organization [employer] Address [address] [facility] 7t [place] [address] Care Team Providers Care Recoverer Name Role Phone Unavailable Primary Care Provider [...] exam 01/23/2024 Dental plaque 12/12/2023 Fractured dental tenriism with loss of materi al 02/05/2023 Dental [...] Description 04/22/2025 1:30 PM EST Office Visit [facility] ADULT DENTAL [address] [place] [address] Danna Doe [address] [place] [address] 05/01/2025 3:00 PM EST Office Visit [facility] ADULT DENT[facility] [address] [place] [address] Vick Kay DDS [address] [place] [address] Health Maintenance Due Date Last Done Comments [...] Full Mouth 10/15/2024 10/14/2021 COVID-19 Vaccine ( - season) 2025 11/11/2021, 06/15/2021, 05/25/2021 Influenza Vaccine [...] Relevant to Health Maintenance Insurance [facility] - HSN PARTIAL (MEDICAID)
== END 2025-04-01 12:40 | disposition home or self-care (01) ==
PROVIDERS: PCP Internal Medicine; Visit Provider Internal Medicine
DX: M79.671 Pain in right foot (principal); B35.1 Tinea unguium

== ENCOUNTER 2025-04-06 13:32 | Outpatient (AMB) | payer OTHER, SELFPAY ==
--- NOTE | 2025-04-06 14:03 | MHC.PC.OV ---
Vital Signs 04/06/25 14:05 Height 6 ft Weight 182 lb 8 oz BMI 24.7 BP 110/70 Blood Pressure Location Lt brachial Position Sitting Pulse 83 Pulse Source Pulse Oximeter Temp 97.5 F Temp Source Temporal Artery Scan Pulse Oximetry (%) 97 Oxygen Delivery Method Room Air Intake Visit Reasons: rt foot f/u walk in Intake Note: Patient is here to follow-up after a visit to the Urgent Care at [facility] on 04/01/25. Translator Interpreter Required: Yes Translator Interpreter Language: Malaysian Information Interpreted: non-clinical & clinical Textile Slitting Machine Operator: Not Required per policy Accompanied by: Self / Same As Patient Allergies No Known Allergies (No Known Allergies*) Allergy (Verified 04/06/25 14:05) Medication List - Last Reconciled 04/06/25 by Sissy Santizo MD cetirizine 10 mg PO DAILY PRN escitalopram oxalate 10 mg PO DAILY ibuprofen 600 mg PO Q6H PRN indomethacin 50 mg PO BID 10 days pantoprazole 40 mg PO BID pregabalin 100 mg PO BID 30 days sucralfate (Carafate) 1 g PO DAILY tramadol 50 mg PO BID PRN 30 days Tobacco use date assessed: 04/06/25 Dental Screening Dental Screen Date: 01/21/25 HPI HPI Comments History of Present Illness Details 50 year old individual presenting with foot pain. The patient reports falling from a set of stairs two Wednesdays ago, with severe pain beginning three days after the incident. The pain is located in the sole of the foot; it is mild at rest but intensifies with pressure or walking, and is most severe in the mornings. The patient was evaluated at a walk-in clinic and prescribed a 10-day course of Indomethacin, which has not provided relief. Initially after the fall, the patient used a Motrin gel, which seemed to help reduce the pain. A foot X-ray performed on April 01 did not show any fracture.The patient was referred to podiatry during his walk in visit but he did not get a call from them yet. The patient takes tramadol for back pain. Other current medications include pregabalin, sucralfate for a stomach condition, and escitalopram for anxiety. [facility] Medical History Reducible left inguinal hernia Physical exam Changes in vision Hypertriglyceridemia Overweight (BMI 25.0-29.9) GERD (gastroesophageal reflux disease) Spondylosis of lumbar spine Rash COVID-19 Myofascial pain syndrome of thoracic spine Myofascial pain syndrome Surgical History H/O left inguinal hernia repair (11/18/24) Hx of colonoscopy (05/01/24) History of esophagogastroduodenoscopy (EGD) (05/01/24) History of appendectomy Family History Mother Arthritis Hypertension Father No problems noted. 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 Current occupational exposures/hazards: No Cognitive needs: No Hearing needs: No Vision needs: No Questionnaire Thrive Questionnaire Date Thrive assessed: 05/21/24 I am a: Patient What is your living situation today?: I have a steady place to live Within the past 12 months, did the food you bought not last and you didn't have the money to get more?: I choose not to answer this question Within the past 12 months, did you worry whether your food would run out before you got money to buy more?: I choose not to answer this question Do you have trouble paying for medicines?: No Do you have trouble getting transportation to medical appointments?: No Do you have trouble paying your heating and electricity bill?: No Do you have trouble taking care of your child, family member or friend?: No Do you have trouble with day-to-day activities such as bathing, preparing meals, shopping, managing finances, etc.?: No Are you currently unemployed and looking for a job?: No Are you interested in more education?: I choose not to answer this question Please select the resources that you would like help with: Job search/training Currently or been in a relationship where the following occur: No concerns reported THRIVE Score: 0 JESSICA-7 AMB Questionnaire JESSICA-7 Date JESSICA - 7 assessed: 01/21/25 Source: Developed by Drs. Dejuan Amador, Leta Calderon, Dieter Sarah and colleagues, with an educational abhay from [employer]. Review of Systems Const Details: As per HPI. Physical exam (Primary Care) Vital Signs: Last Vital Signs Temp 97.5 F 04/06/25 14:05 Pulse 83 04/06/25 14:05 BP 110/70 04/06/25 14:05 Pulse Ox 97 04/06/25 14:05 Oxygen Delivery Method Room Air 04/06/25 14:05 BMI result Body Mass Index 24.7 Tobacco/Smoking Status: Tobacco use Status Tobacco use date assessed 04/06/25 04/06/25 14:09 Patient Tobacco Use Status Former Tobacco user 04/06/25 14:04 Tobacco use type 10/30/24 12:29 e-Cigarette/Vaping Use Never Used 04/06/25 14:04 Thrive Assessment: Date of Thrive Assessment Date Thrive assessed 05/21/24 04/06/25 14:04 Currently or been in a relationship where the following occur: No concerns reported Const Other: Pertinent findings are in BOLD GENERAL APPEARANCE NAD, activity normal for age, well developed/ well nourished, no cyanosis, pallor, or diaphoresis. EYES lids/conjunctiva normal. EARS/NOSE/THROAT Mucous membranes moist, nares normal, lips/teeth normal uvula midline without oral pharyngeal erythema, exudate or swelling TMs normal bilaterally. No lymphangitis/lymphedema. HEAD/NECK normocephalic atraumatic, no facial trauma, neck is supple. RESPIRATORY respiratory effort normal, speaks in full sentences, no tripod position, no accessory muscle use. Lungs clear to auscultation without rhonchi, wheezes, rales CARDIAC Regular rate and rhythm, no edema. ABDOMINAL Soft, ND/NT. No evidence of fluid wave. No pulsatile masses on exam, rebound tenderness, Ruiz sign or pain over Mcburney's point. MUSCLES/EXTREMITIES No abnormal range of motion, no swelling. Tenderness to palpation of the sole of right foot. SKIN Warm, pink and dry. No rashes, dermatoses, petechiae or lesions. NEUROLOGICAL Speech is clear and appropriate. Normal level of consciousness. Gait and coordination are normal. 5/5 strength in all extremities. PSYCH Normal mood and affect. Judgement/competence is appropriate Coding Level of Care Code Est Pt Level 3 (70911) Diagnoses Foot pain, right M79.671 Time Spent (min) 20 Assessment & Plan Assessment & Plan (1) Foot pain, right: Code(s): M79.671 - Pain in right foot Category: Medical Plan: - The pain is likely secondary to post-traumatic inflammation from a fall, as a prior foot X-ray ruled out a fracture. - Indomethacin was ineffective. - Prescribed naproxen 500 mg twice daily for 30 days and instructed the patient to discontinue Indomethacin. - Advised the patient that tramadol, taken for back pain, may also help with this pain. - Emphasized the need for a podiatry consultation for assessment and possible specialized footwear to reduce pressure, given the patient's occupational demands. - Provided the podiatry clinic's phone number and noted that a referral has already been placed by urgent care. - Plan to follow up with Dr. Hernandez on May 27. - Instructed to return if pain worsens. Plan I explained to the patient that the foot pain is likely due to inflammation from the fall, noting that an X-ray has already ruled out a fracture. I acknowledged that Indomethacin is not working and prescribed naproxen 500 mg twice daily for 30 days, advising to stop Indomethacin. I mentioned that the patient's tramadol could also provide some relief for the foot pain. I strongly recommended a consultation with podiatry, explaining that they could provide specialized shoes to reduce pressure on the foot, which is crucial given the patient's job requirements. I provided the scheduling number for the podiatry clinic, confirming that a referral was already in place from urgent care. I reminded the patient of the upcoming follow-up with Dr. Hernandez on May 27 and the GI appointment on June 12, and advised to return if symptoms worsen. Medications: New naproxen 500 mg PO BID PRN 60 tabs 0RF pain Discontinued ibuprofen Discontinued Reason: Duplicate 600 mg PO Q6H PRN 30 tabs 0RF pain indomethacin administer with food or milk Discontinued Reason: Duplicate 50 mg PO BID 10 days 20 caps 0RF
[2025-04-06 14:05] VITALS: BP 110/70; PULSE 83; TEMP 36.4; O2SAT 97; BMI 24.7
--- OUTSIDE RECORDS SUMMARY | 2025-04-06 18:19 | XMS_ITS | Encounter Summary ---
Author Organization [employer] [facility] Address [address] [place] [address] 7 [place] [address] Care Team Providers Care Quick Technician Name Role Phone Unavailable Primary Care Provider Unavailabl e Encounter Details Date Type Department Care Team (Latest Contact Info) Description 10/14/2021 Abstract [facility] CONVERSIONS Dental, Provider, DDS Social [...] Description 04/22/2025 1:30 PM EST Office Visit [facility] ADULT DENTAL [address] [place] [address] Brook, Danna [address] [place] [address] 05/01/2025 3:00 PM EST Office Visit [facility] ADULT DENTAL [address] [place] [address] Eliza, Vick, DDS [address] [place] [address] documented as of this encounter Visit Diagnoses Not on filedocumented in this encounter
--- OUTSIDE RECORDS SUMMARY | 2025-04-06 18:19 | XMS_ITS | Encounter Summary ---
Author Organization [employer] [facility] Address [address] [place] [address] 7 [place] [address] Care Team Providers Care Waiter/Waitress Name Role Phone Unavailable Primary Care Provider Unavailabl e Encounter Details Date Type Department Care Team (Latest Contact Info) Description 07/22/2020 Abstract [facility] CONVERSIONS Dental, Provider, DDS Social History Tobacco [...] Description 04/22/2025 1:30 PM EST Office Visit [facility] ADULT DENTAL [address] [place] [address] Brook, Danna [address] [place] [address] 05/01/2025 3:00 PM EST Office Visit [facility] ADULT DENTAL [address] [place] [address] Eliza, Vick, DDS [address] [place] [address] documented as of this encounter Visit Diagnoses Not on filedocumented in this encounter
--- OUTSIDE RECORDS SUMMARY | 2025-04-06 18:19 | XMS_ITS | Clinical Summary ---
Author Organization [employer] Address [address] [facility] 7t [place] [address] Care Team Providers Care Reverberatory Furnace Supervisor Name Role Phone Unavailable Primary Care Provider [...] exam 01/23/2024 Dental plaque 12/12/2023 Fractured dental gnosticism with loss of materi al 02/05/2023 Dental [...] Description 04/22/2025 1:30 PM EST Office Visit [facility] ADULT DENT[facility] [address] [place] [address] Danna Doe [address] [place] [address] 05/01/2025 3:00 PM EST Office Visit [facility] ADULT DENT[facility] [address] [place] [address] Vick Kay DDS [address] [place] [address] Health Maintenance Due Date Last Done Comments [...] Relevant to Health Maintenance Insurance [facility] - HSN PARTIAL (MEDICAID)
--- OUTSIDE RECORDS SUMMARY | 2025-04-06 18:19 | XMS_ITS | Clinical Summary ---
Author Organization [facility] it Address [address] [place] [address] Care Team Providers Care Mule Driver Name Role Phone Unavailable Primary Care Provider [...] Depression Screening 05/14/2024 COVID-19 Vaccine (1 - 2024-2 6 season) 2025 Influenza Vaccine (#1) 2025 RSV Immunization Adult Patie nts (1 - 1-dose 75+ series) 2048 HIB [...]
== END 2025-04-06 15:31 | disposition home or self-care (01) ==
LOC: HO.HMCH 13:32
PROVIDERS: PCP Internal Medicine; Visit Provider Internal Medicine
DX: M79.671 Pain in right foot (principal)

== ENCOUNTER → 2025-04-06 13:32 | Outpatient (BNVA) | payer OTHER, SELFPAY | PROVIDERS: PCP Internal Medicine; Visit Provider Internal Medicine | DX: M79.671 Pain in right foot (principal) | CPT/HCPCS: 99212 ==

== ENCOUNTER 2025-04-16 12:18 | Outpatient (AMB) | payer OTHER, SELFPAY ==
[2025-04-16 12:31] VITALS: BMI 24.7
--- NOTE | 2025-04-16 12:31 | A.OFFVIS_ITS ---
Vital Signs 04/16/25 12:31 Height 6 ft Weight 182 lb BMI 24.7 Intake Visit Reasons: Tinea unguium Intake Note: Fred is a 50 year old male who presents to the office today as a new patient for Tinea Unguium. Pt states he fell down about 10-15 steps in his basement on 03/29/25 and has been having pain since then. He experiences the most pain when he is walking. Pt states the naproxen does help a little. Pt states he stands on his feet all day at work. Pt states he had Assistant Cross Country Coach Required: Yes Assistant Cross Country Coach Language: Childcare Aide Services: Assistant Cross Country Coach Present Assistant Cross Country Coach Name: Rogelio ([id number]) Allergies No Known Allergies (No Known Allergies*) Allergy (Verified 04/16/25 12:42) HPI HPI Tinea unguium: Details: 50-year-old male presents for initial have his right foot pain. She states then proximally 2 weeks ago, he went down several steps and hit his right foot against the ground. He had immediate pain to his foot in his have worsening with pain over the past 2 weeks. He has pain every step while walking. He describes it as a soreness, denies any burning or shooting sensations. States he is taking naproxen however it has not been helping. [facility] Medical History Reducible left inguinal hernia Physical exam Changes in vision Hypertriglyceridemia Overweight (BMI 25.0-29.9) GERD (gastroesophageal reflux disease) Spondylosis of lumbar spine Rash COVID-19 Myofascial pain syndrome of thoracic spine Myofascial pain syndrome Surgical History H/O left inguinal hernia repair (11/18/24) Hx of colonoscopy (05/01/24) History of esophagogastroduodenoscopy (EGD) (05/01/24) History of appendectomy Family History Mother Arthritis Hypertension Father No problems noted. 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 Mild right plantar 1st Metatarsal-phalangeal joint edema. Derm: No erythema or clinical signs of infection Neuro: Protective sensation grossly intact to bilateral lower extremities MSK: Moderate tenderness on the plantar aspect of the 1st metatarsal shaft to the metatarsal neck. No pain on range of motion of the 1st Metatarsal- phalangeal joint. Mild pain on palpation of the fibular sesamoid. Results Reviewed Results Reviewed: X-ray Read: 04/01/2025 X-ray right foot 3 views (AP, MO, Lateral) reviewed which shows no fractures, dislocations, or gross abnormalities. Bone density is within normal limits. Normal anatomy. No evidence of swelling, foreign body, or calcifications. I personally reviewed the imaging and my findings are listed above. Assessment & Plan Assessment & Plan (1) Stress fracture, right foot, initial encounter for fracture: Code(s): M84.374A - Stress fracture, right foot, initial encounter for fracture Category: Medical Plan: * Differential diagnosis includes sesamoiditis, sesamoid fracture, 1st metatarsal bone bruise, turf toe. * He was dispensed a short cam boot. * Referred for MRI right foot to evaluate for stress fracture given the mechanism of injury, negative x-rays, and persistent pain. * Discontinue Naprosyn, Rx diclofenac 50 mg b.i.d.. * Follow up in 1 month Orders: Orders MR foot RT wo con Today M84.376A - Stress fracture, unspecified foot, initial encounter for fracture Medications: New diclofenac potassium Take 1 tablet with food up to 3 times a day 50 mg PO TID PRN 30 tabs 1RF pain (scale score 7-10) Discontinued naproxen Discontinued Reason: Patient no longer taking 500 mg PO BID PRN 60 tabs 0RF pain Coding Level of Care Code New Pt Level 4 (12998) Diagnoses Stress fracture, right foot, initial encounter for fracture M84.374A Time Spent (min) 30
== END 2025-04-16 13:14 | disposition home or self-care (01) ==
LOC: HO.HPODS 12:18
PROVIDERS: PCP Internal Medicine; Visit Provider Student in an Organized Health Care Education/Training Program
DX: M84.374A Stress fracture, right foot, initial encounter for fracture (principal)
CPT/HCPCS: 99204

== ENCOUNTER → 2025-04-16 12:18 | Outpatient (BNVA) | payer OTHER, SELFPAY | PROVIDERS: PCP Internal Medicine; Visit Provider Student in an Organized Health Care Education/Training Program | DX: M84.374A Stress fracture, right foot, initial encounter for fracture (principal) | CPT/HCPCS: 99202 ==

== ENCOUNTER 2025-05-01 13:17 | Outpatient (AMB) | payer OTHER, SELFPAY ==
--- NOTE | 2025-05-01 13:19 | MHC.OFFVIS ---
Vital Signs 05/01/25 13:27 Height 6 ft Weight 183 lb BMI 24.8 BP 119/65 Blood Pressure Location Lt brachial Position Sitting Pulse 99 Intake Visit Reasons: f/u GERD Intake Note: Fred presents in the office as a follow up for GERD. CC: He states that he is not havin any concerns at this time. Deputy Chief Magistrate Required: Yes Allergies No Known Allergies (No Known Allergies*) Allergy (Verified 04/16/25 12:42) HPI HPI f/u GERD: Details: LAST VISIT: GERD (gastroesophageal reflux disease) Constipation Postprandial abdominal bloating Plan Patient will take sucralfate at bedtime only. Pantoprazole twice a day. Will call his pharmacy to make sure that this will be approved and if not what medication will be approved twice a day. Avoid dietary triggers and late night snacking. Staying upright for minimum 3 hours after meals discussed with patient. Patient will follow-up in 6 months, sooner on as needed basis. He is agreeable to this plan and verbalizes understanding of instructions. He was given the opportunity to ask questions and all questions answered. ? Thank you for allowing me to participate in his care Changed Changed From sucralfate (Carafate) Crush and dissolve in 30 ml of water and swallow twice daily for GERD 1 g PO DAILY 30 days 30 tabs 2RF K21.9 Changed To sucralfate (Carafate) Crush and dissolve in 30 ml of water and swallow daily for GERD 1 g PO DAILY 90 tabs 2RF K21.9 Refilled pantoprazole 40 mg PO BID 180 tabs 1RF K21.9 pantoprazole 40 mg PO BID 180 tabs 1RF K21.9 TODAY'S VISIT Patient is here today for follow-up. Patient reports that he is having epigastric pain, pharmacy did not give him his medications. Patient states that insurance was not approving it. Patient took his partner PPI: Dexilant in the morning in the past few days and he states that it worked better for him than pantoprazole. Patient also took there famotidine at bedtime. He is taking sucralfate in the morning half an hour before he eats and then he takes his morning medication after breakfast. Patient reports that his last meal is at 21:00 or 22:00 that is when he is the most hungry and he goes to sleep afterwards. He wakes up and has to clear his throat the whole day. He does admit that when he took the excellent it helped. Patient denies any nausea or vomiting. [facility] Medical History Reducible left inguinal hernia Physical exam Changes in vision Hypertriglyceridemia Overweight (BMI 25.0-29.9) GERD (gastroesophageal reflux disease) Spondylosis of lumbar spine Rash COVID-19 Myofascial pain syndrome of thoracic spine Myofascial pain syndrome Surgical History H/O left inguinal hernia repair (11/18/24) Hx of colonoscopy (05/01/24) History of esophagogastroduodenoscopy (EGD) (05/01/24) History of appendectomy Family History Mother Arthritis Hypertension Father No problems noted. 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 Current occupational exposures/hazards: No Cognitive needs: No Hearing needs: No Vision needs: No Physical Exam Vital Signs: Last Vital Signs Pulse 99 05/01/25 13:27 BP 119/65 05/01/25 13:27 BMI result Body Mass Index 24.8 Assessment & Plan Assessment & Plan (1) GERD (gastroesophageal reflux disease): Code(s): K21.9 - Gastro-esophageal reflux disease without esophagitis Category: Medical Qualifiers: Esophagitis presence: with esophagitis Esophagitis bleeding: without hemorrhage Qualified Code(s): K21.00 - Gastro-esophageal reflux disease with esophagitis, without bleeding (2) Postprandial abdominal bloating: Code(s): R14.0 - Abdominal distension (gaseous) Plan Patient will start taking Dexilant in the morning and famotidine at bedtime. Discussed with patient the importance of avoiding dietary triggers and late night snacking. Staying upright from minimum 3 hours after meals discussed with patient. Patient will follow-up in 2 months. Patient is agreeable to this plan and verbalizes understanding of instructions. He was given the opportunity to ask questions and all questions answered. Thank you for allowing me to participate in his care Medications: New dexlansoprazole (Dexilant) 60 mg PO DAILY 30 caps 3RF famotidine 40 mg PO BEDTIME 30 tabs 3RF K21.9 - Gastro-esophageal reflux disease without esophagitis Discontinued sucralfate (Carafate) Crush and dissolve in 30 ml of water and swallow daily for GERD Discontinued Reason: Doctor's Order 1 g PO DAILY 90 tabs 2RF K21.9 - Gastro-esophageal reflux disease without esophagitis pantoprazole Discontinued Reason: Doctor's Order 40 mg PO BID 180 tabs 1RF K21.9 - Gastro-esophageal reflux disease without esophagitis Coding Level of Care Code Est Pt Level 4 (52296) Add On Problem Visit Only Diagnoses Gastroesophageal reflux disease with esophagitis without hemorrhage K21.00 Esophagitis presence: with esophagitis Esophagitis bleeding: without hemorrhage Postprandial abdominal bloating R14.0 Time Spent (min) 35 Comment 25 minutes spent with patient and additional 10 minutes spent reviewing
[2025-05-01 13:27] VITALS: BP 119/65; PULSE 99; BMI 24.8
--- OUTSIDE RECORDS SUMMARY | 2025-05-01 15:00 | XMS_ITS | Encounter Summary ---
Author Organization [employer] [facility] Address [address] [place] [id number] Care Team Providers Care Heat Set Operator Name Role Phone Unavailable Primary Care Provider Unavailabl e Reason for Visit * Reason Comments Filling #10 Encounter Details Date Type Department Care Team (Late Contact Info) Description 05/01/2025 3:00 PM EST Office Visit [facility] AD[facility] [address] [place] [address] Vick Kay DDS [address] [place], [place] [phone] Arrived Social History Tobacco Use Types Packs/Day Years [...] Encounters Date Type Department Care Team (Late Contact Info) Description 10/23/2025 2:15 PM EDT Office Visit [facility] [address] [place] [address] Danna Doe [address] [place] [address] Scheduled Orders Name Type Priority Associated Diagnoses Orde r Schedule 10 DL 10 DL RESIN-BASED COMPOSITE - 2 SURF, ANTERIOR Dental Routine [address] arting 05/01/2025 documented as of this encounter Visit Diagnoses Not on filedocumented in this encounter
--- OUTSIDE RECORDS SUMMARY | 2025-05-01 15:05 | XMS_ITS | Encounter Summary ---
Author Organization [employer] [facility] Address [address] [facility] [address] [place] [address] Care Team Providers Care Jukebox Route Driver Name Role Phone Unavailable Primary Care Provider Unavailabl e Encounter Details Date Type Department Care Team (Latest Contact Info) Description 10/14/2021 Abstract [facility] CONVERSIONS Dental, Provider, DDS Social [...] Care Team (Late st Contact Info) Description 10/23/2025 2:15 PM EDT Office Visit [facility] ADULT DENTAL [address] [place] [address] Luis Carlos Doearis [address] [place] [address] documented as of this encounter Visit Diagnoses Not on filedocumented in this encounter
--- OUTSIDE RECORDS SUMMARY | 2025-05-01 15:05 | XMS_ITS | Clinical Summary ---
Author Organization [facility] Address [address] [place] [address] Care Team Providers Care Art Tracer Name Role Phone Unavailable Primary Care Provider [...] on file Sexual Orientation Not on file Plan of Treatment Health Maintenance Due Date Last Done Comments DTaP,Tdap,and Td Vaccines (1 - Tdap) 1992 Hepatitis B Vaccines (1 of 3 - 19+ 3-dose series) 1992 Pneumococcal Vaccine: 50+ Ye ars (1 of 1 - PCV) 2023 Zoster Vaccines (1 of 2) 2023 Depression Screening 05/14/2024 COVID-19 Vaccine ( - 2024-2 6 season) 2025 Influenza Vaccine [...]
--- OUTSIDE RECORDS SUMMARY | 2025-05-01 15:05 | XMS_ITS | Encounter Summary ---
Author Organization [employer] [facility] Address [address] [place] [address] Care Team Providers Care Lawn Service Worker Name Role Phone Unavailable Primary Care Provider Unavailabl e Encounter Details Date Type Department Care Team (Latest Contact Info) Description 07/22/2020 Abstract [facility] CONVERSIONS Dental, Provider, DDS Social History Tobacco [...] Description 10/23/2025 2:15 PM EDT Office Visit [facility] ADULT DENTAL [address] [place] [address] Luis Carlos Doearis [address] [place] [address] documented as of this encounter Visit Diagnoses Not on filedocumented in this encounter
--- OUTSIDE RECORDS SUMMARY | 2025-05-01 15:05 | XMS_ITS | Clinical Summary ---
Author Organization [employer] Address [address] [facility] [address] [place] [address] Care Team Providers Care Telecommunications Sales Representative Name Role Phone Unavailable Primary Care Provider [...] exam 01/23/2024 Dental plaque 12/12/2023 Fractured dental adventism with loss of materi al 02/05/2023 Dental calculus 06/28/2022 Encounters Date Type Department Care Team Description 05/01/2025 3:00 PM EST Office Visit [facility] ADULT DENTAL [address] [place] [address] Eliza VickNARINDER tinajero Arrived 04/22/2025 1:30 PM EST Office Visit [facility] ADULT DENTAL [address] [place] [address] Danna Doe Dental plaque (Primary Dx); Localized gingival recession from Last 3 Months Social History Tobacco [...] Sign Reading Time Taken Comments Blood Pressure 126/72 04/22/2025 1:30 PM EST Pulse 74 02/05/2023 10:06 AM EDT Temperature - - Respiratory Rate - - Oxygen Saturation - - Inhaled Oxygen Concentration - - Weight - - Height - - Body Mass Index - - Plan of Treatment Upcoming Encounters Date Type Department Care Team (Late st Contact Info) Description 10/23/2025 2:15 PM EDT Office Visit [facility] ADULT DENTAL [address] [place] [address] Danna Doe [address] [place] [address] Health Maintenance Due Date Last Done Comments [...] X-Ray: Full Mouth 10/15/2024 10/14/2021 COVID-19 Vaccine (4 - 2024- season) 2025 11/11/2021, 06/15/2021, 05/25/2021 Influenza Vaccine (#1) 2025 03/06/2016, 2014 Dental Oral Exam 02/07/2025 08/06/2024, , 02/05/2023, Additional history exists Dental X-Ray: Bitewings 08/07/2025 08/07/19, 07/04/2024, 06/05/2024, Additional history exists Dental Prophylaxis 10/22/2025 04/22/2025, 0 08/06/2024, 12/12/2023, Additional history exists Tobacco Screening 04/22/2026 04/22/2025 DTaP/Tdap/Td Vaccines (4 - Td or Tdap) [...] Procedure Name Priority Date/Time Associated Diagnosis Comments ORAL HYGIENE INSTRUCTIONS Routine 04/22/2025 1:30 PM EST Dental plaque Localized gingival recession CASE PRESENTATION, DETAILED AND EXTENSIVE TREATMENT PLANNING Routine 04/22/2025 1:30 PM EST Dental plaque Localized gingival recession PROPHYLAXIS - ADULT Routine 04/22/2025 1 :30 PM EST Dental plaque Localized gingival recession BITEWINGS - 4 RADIOGRAPHIC IMAGES Routine 08/06/2024 11:00 AM EDT Dental plaque PERIODIC ORAL EVALUATION - ESTABLISHED PATIENT Routine 08/06/2024 11:00 AM EDT from Last 3 Months or Most Recently Relevant to Health Maintenance Insurance [facility] DENTAL - HSN PARTIAL (MEDICAID)
== END 2025-05-01 13:46 | disposition home or self-care (01) ==
LOC: HO.HGI 13:18
PROVIDERS: PCP Internal Medicine; Visit Provider Nurse Practitioner Family
DX: K21.00 Gastro-esophageal reflux disease with esophagitis, without bleeding (principal); R14.0 Abdominal distension (gaseous)
CPT/HCPCS: 99214

== ENCOUNTER → 2025-05-01 13:17 | Outpatient (BNVA) | payer OTHER, SELFPAY | PROVIDERS: PCP Internal Medicine; Visit Provider Nurse Practitioner Family | DX: K21.00 Gastro-esophageal reflux disease with esophagitis, without bleeding (principal); R14.0 Abdominal distension (gaseous) | CPT/HCPCS: 99212 ==

== ENCOUNTER 2025-05-10 19:49 | Outpatient (REF) | payer OTHER, SELFPAY ==
--- NOTE | ~2025-05-10 | MR_ITS ---
EXAMINATION: MR FOOT WITHOUT CONTRAST, RIGHT CLINICAL INFORMATION: Stress fracture COMPARISON: Previous x-ray of the right foot April 01, 2025 TECHNIQUE: MRI of the right foot was performed without IV contrast on a high-field scanner. FINDINGS: Bone alignment is normal. No fracture or dislocation. There are small subtle nonspecific intramedullary signal abnormalities in the proximal shaft of the second metatarsal bone and distal shaft of the first metatarsal bone. No evidence of stress fracture. No abnormal cortical or periosteal signal or thickening is seen. Joint spaces are normal. Soft tissues are normal. MR/MR foot RT wo con IMPRESSION: No evidence of stress fracture. Electronically signed by: Sharonda Tanner MD 05/12/2025 05:29 PM EST
--- OUTSIDE RECORDS SUMMARY | 2025-05-10 19:53 | XMS_ITS | Encounter Summary ---
Author Organization [employer] [facility] Address [address] [facility] [address] [place] [address] Care Team Providers Care Sexual Assault Response Coordinator Name Role Phone Unavailable Primary Care Provider Unavailabl e Encounter Details Date Type Department Care Team (Latest Contact Info) Description 10/14/2021 Abstract [facility] CONVERSIONS Dental, Provider, DDS Social History Tobacco [...] 2:15 PM EDT Office Visit [facility] ADULT DENTAL [address] [place] [address] Luis Carlos Doearis [address] [place] [address] documented as of this encounter Visit Diagnoses Not on filedocumented in this encounter
--- OUTSIDE RECORDS SUMMARY | 2025-05-10 19:53 | XMS_ITS | Encounter Summary ---
Author Organization [employer] [facility] Address [address] [facility] [address] [place] [address] Care Team Providers Care Circular Distributor Name Role Phone Unavailable Primary Care Provider Unavailabl e Encounter Details Date Type Department Care Team (Latest Contact Info) Description 07/22/2020 Abstract [facility] CONVERSIONS Dental, Provider, DDS Social [...] Description 10/23/2025 2:15 PM EDT Office Visit [facility] ADULT DENTAL [address] [place] [address] Luis Carlos Doearis [address] [place] [address] documented as of this encounter Visit Diagnoses Not on filedocumented in this encounter
--- OUTSIDE RECORDS SUMMARY | 2025-05-10 19:53 | XMS_ITS | Clinical Summary ---
Author Organization [facility] [facility] [facility] Address [address] [place] [address] Care Team Providers Care Water And Sewer Systems Supervisor Name Role Phone Unavailable Primary Care [...]
--- OUTSIDE RECORDS SUMMARY | 2025-05-10 19:53 | XMS_ITS | Clinical Summary ---
Author Organization [employer] Address [address] [facility] [address] [place] [address] Care Team Providers Care Program Admin Name Role Phone Unavailable Primary Care Provider [...] exam 01/23/2024 Dental plaque 12/12/2023 Fractured dental mormon with loss of materi al 02/05/2023 Dental calculus 06/28/2022 Encounters Date Type Department Care Team Description 05/01/2025 3:00 PM EST Office Visit [facility] ADULT DENTAL [address] [place] [address] ElizaVick DDS 04/22/2025 1:30 PM EST Office Visit [facility]ULT [facility] [address] [place] [address] Danna Doe Dental plaque (Primary Dx); Localized [...] Description 10/23/2025 2:15 PM EDT Office Visit [facility] [address] [place] [address] Danna Doe [address] [place] [address] Health Maintenance Due Date Last Done Comments [...] , 02/05/2023, Additional history exists Dental Prophylaxis 10/22/2025 04/22/2025, 0 08/06/2024, 12/12/2023, Additional history exists Tobacco Screening 05/01/2026 05/01/2025 Dental X-Ray: Bitewings 05/02/2026 05/01/20, 08/06/2024, 07/04/2024, Additional history exists DTaP/Tdap/Td Vaccines (4 - [...] Procedure Name Priority Date/Time Associated Diagnosis Comments CASE PRESENTATION, DETAILED AND EXTENSIVE TREATMENT PLANNING Routine 05/01/2025 3:00 PM EST LIMITED ORAL EVALUATION - PROBLEM FOCUSED Routine 05/01/2025 3:00 PM EST BITEWING - SINGLE RADIOGRAPHIC IMAGE Routine 05/01/2025 3:00 PM EST 28 INTRAORAL - PERIAPICAL EACH ADDITIONAL RADIOGRAPHIC IMAGE Routine 05/01/2025 3:00 PM EST 10 INTRAORAL - PERIAPICAL FIRST RADIOGRAPHIC IMAGE Routine 05/01/2025 3:00 PM EST 10 DL RESIN-BASED COMPOSITE - 2 SURF, ANTERIOR Routine 05/01/2025 3:00 PM EST ORAL HYGIENE INSTRUCTIONS Routine 04/22/2025 1:30 PM EST Dental plaque Localized gingival recession CASE PRESENTATION, DETAILED AND EXTENSIVE TREATMENT PLANNING Routine 04/22/2025 1:30 PM EST Dental plaque Localized gingival recession PROPHYLAXIS - ADULT Routine 04/22/2025 1 :30 PM EST Dental plaque Localized gingival recession PERIODIC ORAL EVALUATION - ESTABLISHED PATIENT Routine 08/06/2024 11:00 AM EDT from Last 3 Months or Most Recently Relevant to Health Maintenance Insurance [facility] DENTAL - HSN PARTIAL ([place]) [id number]
== END 2025-05-10 19:50 | disposition home or self-care (01) ==
LOC: HO.MRI 19:49
PROVIDERS: PCP Internal Medicine; Visit Provider Student in an Organized Health Care Education/Training Program
DX: M84.376A Stress fracture, unspecified foot, initial encounter for fracture (principal)
CPT/HCPCS: 73718

== ENCOUNTER → 2025-05-10 19:54 | Outpatient (BNV) | payer OTHER, SELFPAY | PROVIDERS: PCP Internal Medicine; Visit Provider Radiology Diagnostic Radiology | DX: M85.871 Other specified disorders of bone density and structure, right ankle and foot (principal) | CPT/HCPCS: 73718 ==